=== PATIENT | female | born 1940 | race Caucasian/White ===

== ENCOUNTER → 2018-06-10 | Outpatient (CLI) | payer OTHER ==
[~2018-06-10] MED LIST: ASPI81TA28 PO; DORZ2SOL OPB; GABA-113 PO; HYDR25TA4 PO; LATA0.5S OP; LEVO25TA PO; LOSA1TAB38 PO; MULT-506 PO; NRV5 PO; PANT40TA PO; PRAV40TA2 PO; PROP150T2 PO; SLWMEC PO
--- NOTE | 2018-06-10 14:43 | DIAGNOSTIC IMAGING REPORT ---
CHEST 2 VIEWS ROUTINE CLINICAL HISTORY: PAT preoperative evaluation COMPARISON STUDY: No previous studies for comparison. FINDINGS: The bones soft tissues and hemidiaphragms are normal. The cardiomediastinal silhouette is normal. The lungs are clear. The pulmonary vasculature is normal. IMPRESSION: Negative chest. The above report was generated using voice recognition software. It may contain grammatical, syntax or spelling errors. Electronically signed by: Shiv Mathis M.D. 06/10/2018 2:42 PM Dictated Date/Time: 06/10/2018 2:41 PM
[2018-06-10 14:49] LABS: BASO % 0.3 %; BASO ABS # 0.02 K/uL (0-0.2); EOS % 0.8 %; EOS ABS # 0.05 K/uL (0-0.5); HEMATOCRIT 37.6 % (37-47); HEMOGLOBIN 12.4 g/dL (12.0-16.0); IG# 0.02 K/uL (0.00-0.02); LYMPH % 34.3 %; LYMPH ABS # 2.04 K/uL (1.2-3.4); MEAN CELL VOLUME 90.4 fL (80-100); MEAN CORPUSCULAR HEMOGLOBIN 29.8 pg (25-34); MEAN PLATELET VOLUME 9.5 fL (7.4-10.4); MONO % 14.6 %; MONO ABS # 0.87 K/uL (0.11-0.59); NEUT % 49.7 %; NEUT ABS # 2.94 K/uL (1.4-6.5); PLATELET COUNT 162 K/uL (130-400); RED CELL DISTRIBUTION WIDTH CV 13.9 % (11.5-14.5); RED CELL DISTRIBUTION WIDTH SD 45.8 fL (36.4-46.3); WHITE BLOOD COUNT 5.94 K/uL (4.8-10.8)
[2018-06-10 15:04] LABS: PTT PATIENT 27.1 SECONDS (21.0-31.0)
== END | disposition home or self-care (01) ==
LOC: C.CPL 13:15
PROVIDERS: ATTEND Orthopaedic Surgery Sports Medicine
DX: Z01.818 Encounter for other preprocedural examination (principal)

== ENCOUNTER 2024-03-25 09:25 | Observation (INO) ==
[2024-03-25] MEDS: SODIUM CHLORIDE 0.9% 500 ML IV SCH (10:25)
[2024-03-25] MEDS: ONDANSETRON INJ 2 MG/ML 2 ML VIAL IV STA (10:25)
[2024-03-25] MEDS: SODIUM CHLORIDE 0.9% 500 ML IV ONE (10:26)
--- NOTE | 2024-03-25 10:27 | Emergency Department Note ---
Impression & Plan Acute UTI, Weakness, Nausea, COVID-19 ED Provider Note Provider: Robert Moulton MD DATE OF SERVICE: 03/25/2024 CHIEF COMPLAINT: Weak, not eating, not taking HISTORY OF PRESENT ILLNESS: Patient is a 83-year-old female history of hypothyroidism and cardiac disease presenting here with decreased intake and some confusion for almost the last week. Seen in the outpatient setting started on Bactrim at the end of last week. This made her nauseous and she had some nausea and maybe a little bit of upper abdominal discomfort. Hard to pin her down on this. No fevers reported or trauma. Family states that she does not seem like her self has been hallucinating a little bit. No numbness or tingling newly reported. Denies significant abdominal pain or chest pain on my exam. Had a dose of the Bactrim yesterday but not since then has not been making her nauseous. PAST MEDICAL HISTORY: As noted above MEDICATIONS: Reviewed home medication SOCIAL HISTORY: PHYSICAL EXAM: GENERAL: alert and oriented in no acute distress on stretcher Head: normocephalic and atraumatic EYES: No injection, discharge or icterus. PERRL, EOMI. NECK: Trachea midline. Supple. ENT: Mucous membranes pink and moist. LUNGS: Airway patent. No retractions. Breath sounds clear with good air entry bilaterally. HEART: Regular rate and rhythm. No chest wall tenderness ABDOMEN: Soft and non-tender, without guarding or rebound. SKIN: Acyanotic, warm, dry, without rashes EXTREMITIES: Without swelling, tenderness or deformity NEUROLOGICAL: No focal deficits. No aphasia. No facial droop or slurred speech. Normal strength and tone in the extremities. Sensation to gross touch normal. Ambulatory with some assistance EK bpm sinus and first degree AV block. No PVC or PAC. No acute ST segment elevation or depression with a QTc of 445 CONTINUOUS CARDIAC MONITORING: was ordered and showed a heart rate of 70s bpm in sinus rhythm first-degree AV block Patient's laboratory studies and imaging reviewed. Differential includes Infection, dehydration, metabolic abnormality, hypo/hyperglycemia, electrolyte disturbance, anemia, hypoxia, cardiac sources, intracerebral event, toxicologic, neurologic, as well as other pathologies. IMPRESSION/MEDICAL DECISION MAKING: Is being treated for UTI. Urine sample here still appears infected and she now completed the course of the Bactrim given. This reportedly has been making her somewhat nauseous. CT of the head and CT abdomen pelvis obtained and radiology report reviewed without evidence of acute CVA intracranial hemorrhage or evidence of acute intra-abdominal pathology such as kidney stone or diverticulitis. Fairly benign abdomen on exam. Will treat with ceftriaxone IV and given some IV hydration as well as Zofran here for symptoms. Blood work without leukocytosis she is afebrile but likely altered and not doing well related to the UTI. Given that she is failed outpatient treat with Bactrim and having ongoing symptoms do recommend that we bring her in for further care. Is incidentally also COVID-positive may be contributing some of her weakness and GI issues but is feeling improved on reassessment as far as the nausea. Family updated as well as patient. Hospitalist contacted. DIAGNOSIS: Acute UTI, weakness, nausea, COVID-19 DISPOSITION: Hospitalist will evaluate Past Med/Surg History Problem List (Updated 03/25/24 @ 15:18 by [place] Muro) Dehydration symptoms Hyponatremia Confusion Acute kidney injury superimposed on chronic kidney disease Neuropathic pain Paroxysmal atrial fibrillation CAD (coronary artery disease) History of TIA (transient ischemic attack) Glaucoma GERD (gastroesophageal reflux disease) Generalized osteoarthritis Hypothyroidism Hyperlipidemia Hypertension Generalized weakness Complicated UTI (urinary tract infection) COVID-19 (Acute) Medical History Sensorineural hearing loss (SNHL) of both ears Obesity (BMI 30.0-34.9) Hiatal hernia History of tachycardia TACHYCARDIA S/P CARDIOVERSION 18 YEARS AGO [facility]. NO PROBLEMS SINCE. 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 NO PROBLEMS SINCE. History of bilateral tubal ligation History of carpal tunnel release RIGHT History of esophagogastroduodenoscopy (EGD) History of colonoscopy History of appendectomy Family History Unknown Family hx of colon cancer Father Hearing loss Mother Hypertension Stroke Heart disease Sister Colorectal cancer Brother Cancer unknown type Heart disease Other No family history of adverse response to anesthesia No family history of bleeding disorder Social History Smoking Status: Never smoker Second Hand Exposure: No; Do You Dip or Chew Tobacco: No; Hx Alcohol Use: No Hx Substance Use: No Preferred Language: Puerto Rican Communication Ability: Effective Visual Impairment: Partially Limited Beliefs That Will Affect Care: None marital status: Current Living Situation: Spouse current occupational status: retired Feels Safe at Home: Yes Assistive Devices: Walker Allergies Allergies Allergy/AdvReac Type Severity Reaction Status Date / Time brimonidine Allergy Severe RED AND Verified 01/18/21 15:49 IRRITATED EYES carboxymethylcellulose sodium Allergy Severe REDAND Verified 03/25/24 15:29 [From [employer]] IRRITATED EYES cephalexin Allergy Unknown INTERACTS Verified 01/18/21 15:49 WITH A MEDICATION PT TAKES Home Meds Home Medications Medication Instructions Recorded Confirmed amlodipine 5 mg tablet 5 mg PO QAM #0 tabs 05/27/18 03/25/24 dorzolamide 2 % eye drops (Trusopt) 1 drp OPB HS ##0 05/27/18 03/25/24 hydrochlorothiazide 25 mg tablet 12.5 mg PO QAM #0 tabs 05/27/18 03/25/24 latanoprost 0.005 % eye drops 1 drp ophthalmic (eye) HS ##0 05/27/18 03/25/24 (Xalatan) levothyroxine 25 mcg tablet 25 mcg PO QAM #0 tabs 05/27/18 03/25/24 magnesium chloride 64 mg 64 mg PO BID #0 tabs 05/27/18 03/25/24 (magnesium chloride) tablet,delayed release (Mag 64) multivitamin 1 tab PO QAM #0 tabs 05/27/18 03/25/24 pantoprazole 40 mg tablet,delayed 40 mg PO QAM PRN Other ##0 05/27/18 03/25/24 release (Protonix) pravastatin 40 mg tablet 40 mg PO HS ##0 05/27/18 03/25/24 propafenone 150 mg tablet 150 mg PO TID ##0 05/27/18 03/25/24 aspirin 81 mg tablet,delayed 81 mg PO PM 01/18/21 03/25/24 release cholecalciferol (vitamin D3) 75 2,000 unit PO QAM 01/18/21 03/25/24 mcg (3,000 unit) tablet gabapentin 100 mg capsule 300 mg PO TID 01/18/21 03/25/24 Results & Data (ED) Vital Signs Vital Signs - 24 hr 03/25/24 09:29 03/25/24 09:42 03/25/24 10:08 Temperature 36.8 C Temperature Source Temporal Artery Scan Pulse Rate 70 71 Respiratory Rate 18 16 Respiratory Effort / Characteristics Non-Labored Spontaneous Respiratory Depth Normal Blood Pressure 150/80 H 149/74 H Blood Pressure Mean 103 99 Blood Pressure Position Sitting Pulse Oximetry 97 96 Oxygen Delivery Method Room Air Room Air Sepsis Recent Fever Within 48 Hours No Sepsis New/Unexplained Change in Mental Status No Sepsis Action Taken by Nursing No Action Required 03/25/24 10:30 Temperature Temperature Source Pulse Rate 73 Respiratory Rate Respiratory Effort / Characteristics Respiratory Depth Blood Pressure Blood Pressure Mean Blood Pressure Position Pulse Oximetry Oxygen Delivery Method Sepsis Recent Fever Within 48 Hours Sepsis New/Unexplained Change in Mental Status Sepsis Action Taken by Nursing Laboratory Data 03/25/24 10:25 03/25/24 10:25 Lab Results 03/25/24 03/25/24 03/25/24 Range/Units 09:55 10:03 10:25 WBC 9.98 (4.8-10.8) K/ul RBC 4.34 (4.20-5.40) M/uL Hgb 12.9 (12.0-16.0) g/dl Hct 36.6 L (37.0-47.0) % MCV 84.3 (80.0-100.0) fL MCH 29.7 (25.0-34.0) pg MCHC 35.2 (32.0-36.0) g/dL RDW Std Deviation 41.6 (36.4-46.3) fL RDW Coeff of Dona 13.4 (11.5-14.5) % Plt Count 249 (130-400) K/uL MPV 9.0 L (9.4-12.4) fL Immature Gran % (Auto) 0.6 % Neut % (Auto) 69.5 % Lymph % (Auto) 21.5 % [place] % (Auto) 7.2 % Eos % (Auto) 0.5 % Baso % (Auto) 0.7 % Neut # (Auto) 6.93 H (1.40-6.50) K/uL Lymph # (Auto) 2.15 (1.20-3.40) K/uL [place] # (Auto) 0.72 H (0.11-0.59) K/uL Eos # (Auto) 0.05 (0.00-0.50) K/uL Baso # (Auto) 0.07 (0.00-0.20) K/uL Immature Gran # (Auto) 0.06 (0.01-0.20) K/uL PT 11.3 (9.0-12.0) Seconds INR 1.0 (0.9-1.1) Sodium 133 L (136-145) mmol/L Potassium 4.0 (3.5-5.1) mmol/L Chloride 101 (98-107) mmol/L Carbon Dioxide 19 L (21-32) mmol/L Anion Gap 13 H (3-11) BUN 24 H (6-23) mg/dl Creatinine 1.77 H (0.6-1.2) mg/dl Est Cr Clr Drug Dosing 24.5 ml/min Est GFR ( Amer) 30.5 ml/min Est GFR (Non-Af Amer) 26.3 ml/min BUN/Creatinine Ratio 13.6 (10-20) Glucose 90 (70-99(Fasting)) mg/dl Calcium 9.2 (8.6-10.3) mg/dl Magnesium 2.0 (1.7-2.4) mg/dl Total Bilirubin 0.5 (0.2-1.0) mg/dl AST 25 (13-39) U/L ALT 16 (7-52) U/L Alkaline Phosphatase 73 (34-104) U/L Total Creatine Kinase 59 (26-192) U/L Troponin I High Sens 8.4 (0-14) pg/ml Total Protein 7.1 (6.0-8.3) gm/dl Albumin 4.2 (3.4-5.0) gm/dl Globulin 2.9 (2.5-4.0) gm/dl Albumin/Globulin Ratio 1.4 (0.9-2) Lipase 17 (11-82) U/L Procalcitonin 0.03 (0-0.5) ng/ml TSH 1.114 (0.300-4.500) uIu/ml Urine Color Yellow Urine Appearance Cloudy A (Clear) Urine pH 6.0 (4.5-7.5) Ur Specific [place] 1.011 (1.000-1.030) Urine Protein 1+ H (Negative) Urine Glucose (UA) Negative (Negative) Urine Ketones Negative (Negative) Urine Blood Negative (Negative) Urine Nitrite Negative (Negative) Urine Bilirubin Negative (Negative) Urine Urobilinogen Negative (Negative) Ur Leukocyte Esterase 3+ H (Negative) Urine WBC (Auto) >50 H (0-5) /hpf Urine RBC (Auto) 0-2 (0-2) /hpf U Hyaline Cast (Auto) 3-5 H (0-2) /lpf U Epithel Cells (Auto) 0-2 (0-2) /hpf Urine Bacteria (Auto) 4+ H (None Seen) Adenovirus (PCR) Not Detected (NotDetected) B. pertussis DNA (PCR) Not Detected (NotDetected) B.parapertussis DNA PCR Not Detected (NotDetected) C. pneumoniae DNA (PCR) Not Detected (NotDetected) Coronavirus OC43 (PCR) Not Detected (NotDetected) Coronavirus HKU1 (PCR) Not Detected (NotDetected) Coronavirus 229E (PCR) Not Detected (NotDetected) SARS-CoV-2 (PCR) DETECTED A (NotDetected) Coronavirus NL63 (PCR) Not Detected (NotDetected) Human Metapneumovir PCR Not Detected (NotDetected) Influenza Type A (PCR) Not Detected (NotDetected) Influenza Type B (PCR) Not Detected (NotDetected) M. pneumoniae (PCR) Not Detected (NotDetected) Parainfluenza 1 (PCR) Not Detected (NotDetected) Parainfluenza 2 (PCR) Not Detected (NotDetected) Parainfluenza 3 (PCR) Not Detected (NotDetected) Parainfluenza 4 (PCR) Not Detected (NotDetected) RSV (PCR) Not Detected (NotDetected) Entero/Rhino (PCR) Not Detected (NotDetected) Administered Medications Discontinued Medications Sodium Chloride (Nss) 500 mls @ 999 mls/hr IV .Q31M KAROLINE Stop: 03/25/24 10:15 Last Infusion: 03/25/24 10:56 Dose: Infused Documented By: Admin: 03/25/24 10:25 Dose: 999 mls/hr Documented By: Sodium Chloride (Nss) 500 mls @ 999 mls/hr IV .Q31M ONE Stop: 03/25/24 10:27 Last Infusion: 03/25/24 10:57 Dose: Infused Documented By: Admin: 03/25/24 10:26 Dose: 999 mls/hr Documented By: Ceftriaxone Sodium (Rocephin) 2,000 mg in 50 mls @ 100 mls/hr IV NOW STA Stop: 03/25/24 11:24 Last Infusion: 03/25/24 11:44 Dose: Infused Documented By: Admin: 03/25/24 11:14 Dose: 100 mls/hr Documented By: Ondansetron HCl (Ondansetron Inj 2 Mg/Ml 2 Ml Vial) 4 mg IV NOW STA Stop: 03/25/24 09:58 Last Admin: 03/25/24 10:25 Dose: 4 mg Documented By: Imaging Data Radiologist's Impression: Chest X-Ray 03/25/24 09:42 XR chest 1V portable CLINICAL HISTORY: weakness COMPARISON STUDY: Chest radiograph June 10, 2018. FINDINGS: Lung volumes are normal. Lungs are clear. There is no pneumothorax or pleural effusion. Mild cardiomegaly is unchanged. Mediastinal contours are normal. There is no evidence for pulmonary edema. IMPRESSION: No acute cardiopulmonary findings. No change in appearance of the chest. ACT 112: Negative or not required by law. Electronically signed by: Fili Mckinley M.D. 03/25/2024 10:[address] 03/25/24 09:57 CT SCAN OF THE BRAIN WITHOUT IV CONTRAST CLINICAL HISTORY: Change in mental status. Nausea. Generalized weakness. COMPARISON STUDY: No priors. TECHNIQUE: Unenhanced axial CT scan of the brain is performed from the vertex to the skull base. A dose lowering technique was utilized adhering to the principles of ALARA. FINDINGS: Brain parenchyma: There is age-related involutional change noting advanced subcortical and periventricular microangiopathic disease. There is no hemorrhage, mass effect, or evidence of acute territorial ischemia by CT criteria. Andrade-white matter differentiation is preserved. No extra-axial fluid collection is seen. Ventricles, sulci, cisterns: Prominent secondary to involutional change. Intracranial vasculature: There is atherosclerotic calcification of the cavernous carotid and vertebral arteries. Calvarium: Unremarkable. Sinuses and mastoids: There is trace mucosal thickening within the partially imaged maxillary antra, as well as within the left frontal, anterior ethmoid, and the sphenoid sinuses. The mastoid air cells are well pneumatized. Orbits: The bony orbits are grossly intact. IMPRESSION: There is no hemorrhage, mass effect, or evidence of acute territorial ischemia by CT criteria. ACT 112: Negative or not required by law. Electronically signed by: Gustavo Navarrete M.D. 03/25/2024 10:29 AM Abdomen/Pelvis CT 03/25/24 09:58 CT OF THE ABDOMEN AND PELVIS WITHOUT CONTRAST CLINICAL HISTORY: Abdominal pain and nausea. COMPARISON STUDY: No previous studies for comparison. TECHNIQUE: Axial images of the abdomen and pelvis were obtained without IV contrast. Images were reviewed in the axial, sagittal, and coronal planes. Automated exposure control was utilized for the study. A dose lowering technique was utilized adhering to the principles of ALARA. FINDINGS: No pneumatosis, free air or portal venous gas is present. No renal, ureteral or bladder calculi are present. There is no hydronephrosis. Evaluation the remainder of the abdomen and pelvis is suboptimal on this unenhanced exam. There is a small hiatal hernia. Liver, spleen, adrenal glands and pancreas are unremarkable. There is no biliary or pancreatic ductal dilatation. There is no peripancreatic or pericholecystic infiltration. Gallbladder is slightly distended. Extensive colonic diverticulosis without evidence for acute diverticulitis. The appendix is not visualized. There is no evidence for a bowel obstruction. There is no lymphadenopathy. No fluid collections are present. No acute fractures are identified within the visualized skeletal structures. IMPRESSION: 1. No urinary calculi or hydronephrosis. 2. Extensive colonic diverticulosis. No evidence for acute diverticulitis. 3. No bowel obstruction. No bowel wall thickening on unenhanced exam. ACT 112: Negative or not required by law. Electronically signed by: Fili Mckinley M.D. 03/25/2024 10:37 AM Discharge Plan Visit Data Chief Complaint: Urinary Symptoms Stated Complaint: UTI, WEAKNESS, NO APETITE ED Provider: Robert Moulton Discharge Problem: Acute UTI, Weakness, Nausea, COVID-19 Patient Disposition: Admitted As Inpatient Discharge Instructions Interventions: ED Discharge Assessment Last Done: 03/25/24 15:26
--- NOTE | 2024-03-25 10:30 | CT Scan Report ---
CT SCAN OF THE BRAIN WITHOUT IV CONTRAST CLINICAL HISTORY: Change in mental status. Nausea. Generalized weakness. COMPARISON STUDY: No priors. TECHNIQUE: Unenhanced axial CT scan of the brain is performed from the vertex to the skull base. A do se lowering technique was utilized adhering to the principles of ALARA. FINDINGS: Brain parenchyma: There is age-related involutional change noting advanced subcortical and periventri cular microangiopathic disease. There is no hemorrhage, mass effect, or evidence of acute territorial ischemia by CT criteria. Andrade-white matter differentiation is preserved. No extra-axial fluid collec tion is seen. Ventricles, sulci, cisterns: Prominent secondary to involutional change. Intracranial vasculature: There is atherosclerotic calcification of the cavernous carotid and vertebr al arteries. Calvarium: Unremarkable. Sinuses and mastoids: There is trace mucosal thickening within the partially imaged maxillary antra, as well as within the left frontal, anterior ethmoid, and the sphenoid sinuses. The mastoid air cells are well pneumatized. Orbits: The bony orbits are grossly intact. IMPRESSION: There is no hemorrhage, mass effect, or evidence of acute territorial ischemia by CT kath zuluaga. ACT 112: Negative or not required by law. Electronically signed by: Gustavo Navarrete M.D. 03/25/2024 10:29 AM
[2024-03-25 10:34] LABS: Appearance Urine Cloudy (Clear); Bacteria Urine Automated 4+ (None Seen); Bilirubin Urine Negative (Negative); Blood Urine Negative (Negative); Color Urine Yellow; Epithelial Cell Urine Auto 0-2 /hpf (0-2); Glucose Urine UA Negative (Negative); Ketones Urine Negative (Negative); Leukocyte Esterase Urine 3+ (Negative); Nitrite Urine Negative (Negative); Protein Urine 1+ (Negative); RBC Urine Automated 0-2 /hpf (0-2); Specific Gravity Urine 1.011 (1.000-1.030); Urobilinogen Urine Negative (Negative); WBC Urine Automated >50 /hpf (0-5)
--- NOTE | 2024-03-25 10:38 | CT Scan Report ---
CT OF THE ABDOMEN AND PELVIS WITHOUT CONTRAST CLINICAL HISTORY: Abdominal pain and nausea. COMPARISON STUDY: No previous studies for comparison. TECHNIQUE: Axial images of the abdomen and pelvis were obtained without IV contrast. Images were revi ewed in the axial, sagittal, and coronal planes. Automated exposure control was utilized for the [place]. A dose lowering technique was utilized adhering to the principles of ALARA. FINDINGS: No pneumatosis, free air or portal venous gas is present. No renal, ureteral or bladder denise culi are present. There is no hydronephrosis. Evaluation the remainder of the abdomen and pelvis is s uboptimal on this unenhanced exam. There is a small hiatal hernia. Liver, spleen, adrenal glands and pancreas are unremarkable. There is no biliary or pancreatic ductal dilatation. There is no peripancr eatic or pericholecystic infiltration. Gallbladder is slightly distended. Extensive colonic diverticu losis without evidence for acute diverticulitis. The appendix is not visualized. There is no evidence for a bowel obstruction. There is no lymphadenopathy. No fluid collections are present. No acute fra ctures are identified within the visualized skeletal structures. IMPRESSION: 1. No urinary calculi or hydronephrosis. 2. Extensive colonic diverticulosis. No evidence for acute diverticulitis. 3. No bowel obstruction. No bowel wall thickening on unenhanced exam. ACT 112: Negative or not required by law. Electronically signed by: Fili Mckinley M.D. 03/25/2024 10:37 AM
--- NOTE | 2024-03-25 10:50 | XRay Report ---
XR chest 1V portable CLINICAL HISTORY: weakness COMPARISON STUDY: Chest radiograph June 10, 2018. FINDINGS: Lung volumes are normal. Lungs are clear. There is no pneumothorax or pleural effusion. Mil d cardiomegaly is unchanged. Mediastinal contours are normal. There is no evidence for pulmonary nidhi a. IMPRESSION: No acute cardiopulmonary findings. No change in appearance of the chest. ACT 112: Negative or not required by law. Electronically signed by: Fili Mckinley M.D. 03/25/2024 10:49 AM
[2024-03-25 10:55] LABS: Basophils # (auto) 0.07 K/uL (0.00-0.20); Basophils % (auto) 0.7 %; Eosinophils # (auto) 0.05 K/uL (0.00-0.50); Eosinophils % (auto) 0.5 %; Hematocrit (blood only) 36.6 % (37.0-47.0); Hemoglobin 12.9 g/dl (12.0-16.0); Immature Granulocytes # (auto) 0.06 K/uL (0.01-0.20); Immature Granulocytes % (auto) 0.6 %; Lymphocytes # (auto) 2.15 K/uL (1.20-3.40); Lymphocytes % (auto) 21.5 %; Mean Corpuscular Hemoglobin 29.7 pg (25.0-34.0); Mean Corpuscular Hgb Conc 35.2 g/dL (32.0-36.0); Mean Corpuscular Volume 84.3 fL (80.0-100.0); Monocytes # (auto) 0.72 K/uL (0.11-0.59); Monocytes % (auto) 7.2 %; Neutrophils # (auto) 6.93 K/uL (1.40-6.50); Neutrophils % (auto) 69.5 %; Platelet Count 249 K/uL (130-400); RDW Coefficient of Variation 13.4 % (11.5-14.5); RDW Standard Deviation 41.6 fL (36.4-46.3); Red Blood Count 4.34 M/uL (4.20-5.40); White Blood Count 9.98 K/ul (4.8-10.8)
[2024-03-25 11:10] LABS: Adenovirus PCR Not Detected (NotDetected); Bordetella parapertussis PCR Not Detected (NotDetected); Bordetella pertussis PCR Not Detected (NotDetected); Chlamydia pneumoniae PCR Not Detected (NotDetected); Coronavirus 229E PCR Not Detected (NotDetected); Coronavirus CoV-2 (COVID19)PCR DETECTED (NotDetected); Coronavirus HKU1 PCR Not Detected (NotDetected); Coronavirus NL63 PCR Not Detected (NotDetected); Coronavirus OC43PCR Not Detected (NotDetected); Human Metapneumovirus PCR Not Detected (NotDetected); Influenza A PCR Not Detected (NotDetected); Influenza B PCR Not Detected (NotDetected); Mycoplasma pneumoniae PCR Not Detected (NotDetected); Parainfluenza Virus 1 PCR Not Detected (NotDetected); Parainfluenza Virus 2 PCR Not Detected (NotDetected); Parainfluenza Virus 3 PCR Not Detected (NotDetected); Parainfluenza Virus 4 PCR Not Detected (NotDetected); Respiratory Syncytial VirusPCR Not Detected (NotDetected); Rhinovirus/Enterovirus PCR Not Detected (NotDetected)
[2024-03-25 11:14] LABS: Albumin Level 4.2 gm/dl (3.4-5.0); Bilirubin,Total 0.5 mg/dl (0.2-1.0); Calcium 9.2 mg/dl (8.6-10.3)
[2024-03-25] MEDS: cefTRIAXone SODIUM 2,000 MG/50 ML BAG IV STA (11:14)
[2024-03-25 11:20] LABS: Albumin Globulin Ratio 1.4 (0.9-2); BUN Creatinine Ratio 13.6 (10-20); Creatinine Clr Calc Pharmacy 24.5 ml/min; Est GFR (African American) 30.5 ml/min; Est GFR (Non-African American) 26.3 ml/min; Globulin 2.9 gm/dl (2.5-4.0); Total Protein 7.1 gm/dl (6.0-8.3)
[2024-03-25 11:21] LABS: Troponin I High Sensitivity 8.4 pg/ml (0-14)
[2024-03-25 11:22] LABS: Prothrombin Time 11.3 Seconds (9.0-12.0)
[2024-03-25 11:31] LABS: Thyroid Stimulating Hormone 1.114 uIu/ml (0.300-4.500)
--- NOTE | 2024-03-25 11:56 | History & Physical Report ---
Date of Service March 25, 2024 History of Present Illness Primary Care Provider: ZACH Mariee Allergies Allergy/AdvReac Type Severity Reaction Status Date / Time brimonidine Allergy Severe RED AND Verified 01/18/21 15:49 IRRITATED EYES cephalexin Allergy Unknown INTERACTS Verified 01/18/21 15:49 WITH A MEDICATION PT TAKES Carboxymethylcellulose Allergy Severe RED AND Uncoded 01/18/21 15:49 IRRITATED EYES Home Medications Medication Instructions Recorded Confirmed Type amlodipine 5 mg tablet 5 mg PO QAM #0 tabs 05/27/18 03/25/24 History dorzolamide 2 % eye drops (Trusopt) 1 drp OPB HS ##0 05/27/18 03/25/24 History hydrochlorothiazide 25 mg tablet 12.5 mg PO QAM #0 tabs 05/27/18 03/25/24 History latanoprost 0.005 % eye drops 1 drp ophthalmic (eye) HS ##0 05/27/18 03/25/24 History (Xalatan) levothyroxine 25 mcg tablet 25 mcg PO QAM #0 tabs 05/27/18 03/25/24 History magnesium chloride 64 mg 64 mg PO BID #0 tabs 05/27/18 03/25/24 History (magnesium chloride) tablet,delayed release (Mag 64) multivitamin 1 tab PO QAM #0 tabs 05/27/18 03/25/24 History pantoprazole 40 mg tablet,delayed 40 mg PO QAM PRN Other ##0 05/27/18 03/25/24 History release (Protonix) pravastatin 40 mg tablet 40 mg PO HS ##0 05/27/18 03/25/24 History propafenone 150 mg tablet 150 mg PO TID ##0 05/27/18 03/25/24 History aspirin 81 mg tablet,delayed 81 mg PO PM 01/18/21 03/25/24 History release cholecalciferol (vitamin D3) 75 2,000 unit PO QAM 01/18/21 03/25/24 History mcg (3,000 unit) tablet gabapentin 100 mg capsule 300 mg PO TID 01/18/21 03/25/24 History sulfamethoxazole 800 1 tab PO BID 03/25/24 03/25/24 History mg-trimethoprim 160 mg tablet Past Med/Surg History Problem List (Updated 03/25/24 @ 11:34 by Robert Moulton M.D.) COVID-19 (Acute) Nausea (Acute) Weakness (Acute) Acute UTI (Acute) History of total left knee replacement Impacted cerumen of both ears Sensorineural hearing loss (SNHL) of both ears Total knee replacement status Encounter for pre-operative examination Medical History Chronic back pain Degenerative disc disease GERD (gastroesophageal reflux disease) Glaucoma Hearing deficit Hiatal hernia History of pneumonia History of tachycardia Hyperlipidemia Hypertension Hypothyroidism Obesity (BMI 30.0-34.9) Osteoarthritis Peripheral neuropathy Surgical History History of appendectomy History of bilateral tubal ligation History of cardiac cath History of cardioversion History of carpal tunnel release History of colonoscopy History of esophagogastroduodenoscopy (EGD) History of knee joint replacement Family History Unknown Family hx of colon cancer Father Hearing loss Mother Hypertension Stroke Heart disease Sister Colorectal cancer Brother Cancer Heart disease Other No family history of adverse response to anesthesia No family history of bleeding disorder Social History Smoking Status: Never smoker Second Hand Exposure: No; Do You Dip or Chew Tobacco: No; Hx Alcohol Use: No Hx Substance Use: No Preferred Language: Bahamian Communication Ability: Effective Visual Impairment: Partially Limited Beliefs That Will Affect Care: None marital status: Current Living Situation: Spouse current occupational status: retired Feels Safe at Home: Yes Assistive Devices: Walker Results & Data Results & Data Vital Signs (Past 12 Hours) Vital Signs Temp Pulse Resp BP Pulse Ox O2 Del Method 03/25/24 10:30 73 03/25/24 09:42 96 Room Air 03/25/24 09:29 36.8 C 70 18 150/80 H 97 Room Air
--- NOTE | 2024-03-25 12:10 | History & Physical Report ---
Date of Service March 25, 2024 Assessment & Plan (1) Complicated UTI (urinary tract infection): (2) Generalized weakness: (3) Acute metabolic encephalopathy: Plan: Ema Forte is an 83y/o F with PMHx of acquired hypothyroidism, dyslipidemia, paroxysmal atrial fibrillation [not currently on oral anticoagulation therapy], HTN, CAD, CKD stage III, urinary incontinence, sensorineural hearing loss of both ears, TIA, GERD w/o esophagitis, benign essential tremor of left hand, generalized osteoarthritis, recurrent UTI, neuropathic pain and other problems listed below who presented to the ED for evaluation of ongoing urinary symptoms associated w/ generalized weakness/fatigue, confusion and decreased appetite. Patient was evaluated on 03/20/2024 by her PCP for acute concerns of fatigue, confusion, decreased appetite x 1 week and was diagnosed with a UTI. She was prescribed a 7-day course of Bactrim at that time. However, she was only able to take ~3 days worth of the Bactrim therapy d/t subsequent nausea/dry heaving. Her last dose was yesterday morning. Patient was seen again by her PCP this morning, who referred her here to the ED for further management following failure of outpatient Bactrim therapy. She did receive 4 mg IV Zofran and 1 L of NSS in the ED. UA reveals evidence of ongoing UTI [elevated leukocyte esterase/WBC count]. Head CT displays no evidence of hemorrhage, mass effect or acute ischemia. CT abdomen/pelvis revealed no urinary calculi or hydronephrosis. Extensive colonic diverticulosis is seen on CT imaging, but there is no evidence of acute diverticulitis, bowel obstruction or bowel wall thickening. -Continue ABX therapy w/ IV Rocephin 2g Q24H. Urine culture pending. -Will receive an additional 1L NSS upon transfer. -Continuous cardiac monitoring, fall precautions in place. -Can continue STOVE FITTER magnesium supplementation, mag level 2.0 on admission. -Bowel regimen in place, PRN IV Zofran ordered for any recurrent episodes of nausea. -Repeat BMP and CBC in AM, monitor for any signs of delirium throughout hospitalization. (4) Acute kidney injury superimposed on chronic kidney disease: Plan: Per [facility] records, baseline creatinine appears to be ~1.3-1.4. Creatine 1.77, BUN 24 and GFR 26.3 upon admission. -Order placed for an additional 1L NSS to be administered upon transfer. -Hold STOVE FITTER hydrochlorothiazide d/t current renal function. -Continue to monitor renal function and hold any additional nephrotoxic medications, repeat BMP in AM. (5) Dehydration symptoms: (6) Hyponatremia: Plan: Patient received 1L NSS in the ED. -Plan to administer an additional 1L NSS upon transfer. -Monitor sodium level, repeat BMP ordered for the AM. (7) COVID-19: Plan: RVP positive for COVID-19. Currently asymptomatic, denies any respiratory symptoms at bedside. Chest x-ray revealed no acute cardiopulmonary findings. SpO2 99% on RA, currently not requiring supplemental oxygen therapy. -No indication to start remdesivir at the moment given absence of respiratory symptoms. -Continue to routinely monitor the patient for any signs of acute respiratory concerns. (8) Paroxysmal atrial fibrillation: Plan: Not currently in atrial fibrillation, also not currently on oral anticoagulation therapy. -Continue propafenone; continuous cardiac monitoring in place. (9) Hypertension: Plan: -Continue amlodipine, hold STOVE FITTER hydrochlorothiazide given current RHEA. (10) Hyperlipidemia: Plan: -Continue pravastatin (11) Hypothyroidism: Plan: -Continue levothyroxine (12) GERD (gastroesophageal reflux disease): Plan: -Continue PRN PPI therapy (13) Glaucoma: Plan: -Continue latanoprost, dorzolamide (14) History of TIA (transient ischemic attack): (15) CAD (coronary artery disease): Plan: -Continue aspirin, pravastatin (16) Generalized osteoarthritis: (17) Neuropathic pain: Plan: -Can continue STOVE FITTER gabapentin for chronic neuropathic pain. -PRN Tylenol order in place, can use for bouts of osteoarthritic pain (which patient reports is mostly localized to her knees). DVT Prophylaxis: SQ Heparin Code Status: Full Code PCP: ZACH Mariee Dispo: Admit to Med/Surg w/ Telemetry Patient seen in collaboration with Dr. Lopez. Please see addendum. I spent a total of 75 minutes coordinating, documenting, and providing care for this patient excluding time spent in the performance of separately billed services. This included personally reviewing all current laboratories and imaging studies, medical reconciliation, outpatient chart review and discussion with specialists. This chart was completed in part utilizing Speech Voice Recognition Software. Grammatical errors, random word insertions, pronoun errors, and incomplete sentences are an occasional consequence of this system due to software limitations, ambient noise, and hardware issues. Any formal questions or concerns about the content, text, or information contained within the body of this dictation should be directly addressed to the provider for clarification. History of Present Illness Chief Complaint: Urinary Symptoms/UTI, Weakness & Confusion Primary Care Provider: ZACH Mariee Ema Forte is an 83y/o F with PMHx of acquired hypothyroidism, dyslipidemia, paroxysmal atrial fibrillation [not currently on oral anticoagulation therapy], HTN, CAD, CKD stage III, urinary incontinence, sensorineural hearing loss of both ears, TIA, GERD w/o esophagitis, benign essential tremor of left hand, generalized osteoarthritis, recurrent UTI, neuropathic pain and other problems listed below who presented to the ED for evaluation of ongoing urinary symptoms associated w/ generalized weakness/fatigue, confusion and decreased appetite. History obtained from patient, and associated ED/PCP records. Patient was evaluated on 03/20/2024 by her PCP for acute concerns of fatigue, confusion, decreased appetite x 1 week and was diagnosed with a UTI. She was prescribed a 7-day course of Bactrim at that time. However, she was only able to take ~3 days worth of the Bactrim therapy d/t subsequent nausea/dry heaving. Her last dose was yesterday morning. Patient was seen again by her PCP this morning, who referred her here to the ED for further management following failure of outpatient Bactrim therapy. Patient seen at bedside. Patient is accompanied in the room by her daughter, Kylie, and her , Leno, whom provide additional history. Patient is still having the same ongoing symptoms as above (i.e., fatigue, confusion and decreased appetite). Patient's reports that she has not eaten a full meal in approximately 1 week, and has not had a bowel movement in approximately a week and a half. Although, patient states that she typically has 1 bowel movement per week at baseline. Patient's daughter reports that she has not been hydrating well at home, and that she appears visibly dehydrated. Patient's states that she "has not been acting like herself" recently, and may even be hallucinating a little bit. Patient denies any episodes of vomiting, or current nausea. She did receive 4 mg IV Zofran and 1 L of NSS in the ED. Patient denies any recent fevers, chills or body aches. Patient's daughter reports that she does not have the "typical UTI symptoms," such as dysuria, increased urinary frequency or fever. Patient denies any abdominal discomfort or pain. She further denies any SOB, chest pain, headaches, lightheadedness/dizziness, recent falls or trauma. Patient attended her sister's approximately 2 weeks ago, and multiple attendees have recently reported testing positive for COVID-19. Patient's states that she did have a runny nose and some sinus congestion over the weekend, which have since resolved. Patient currently lives with her in a trailer, and their daughter lives in a trailer right next to them. Patient ambulates with a cane at home, and denies any recent issues with ambulation. Allergies Allergy/AdvReac Type Severity Reaction Status Date / Time brimonidine Allergy Severe RED AND Verified 01/18/21 15:49 IRRITATED EYES carboxymethylcellulose sodium Allergy Severe REDAND Verified 03/25/24 15:29 [From Refresh Plus] IRRITATED EYES cephalexin Allergy Unknown INTERACTS Verified 01/18/21 15:49 WITH A MEDICATION PT TAKES Home Medications Medication Instructions Recorded Confirmed Type amlodipine 5 mg tablet 5 mg PO QAM #0 tabs 05/27/18 03/25/24 History dorzolamide 2 % eye drops (Trusopt) 1 drp OPB HS ##0 05/27/18 03/25/24 History hydrochlorothiazide 25 mg tablet 12.5 mg PO QAM #0 tabs 05/27/18 03/25/24 History latanoprost 0.005 % eye drops 1 drp ophthalmic (eye) HS ##0 05/27/18 03/25/24 History (Xalatan) levothyroxine 25 mcg tablet 25 mcg PO QAM #0 tabs 05/27/18 03/25/24 History magnesium chloride 64 mg 64 mg PO BID #0 tabs 05/27/18 03/25/24 History (magnesium chloride) tablet,delayed release (Mag 64) multivitamin 1 tab PO QAM #0 tabs 05/27/18 03/25/24 History pantoprazole 40 mg tablet,delayed 40 mg PO QAM PRN Other ##0 05/27/18 03/25/24 History release (Protonix) pravastatin 40 mg tablet 40 mg PO HS ##0 05/27/18 03/25/24 History propafenone 150 mg tablet 150 mg PO TID ##0 05/27/18 03/25/24 History aspirin 81 mg tablet,delayed 81 mg PO PM 01/18/21 03/25/24 History release cholecalciferol (vitamin D3) 75 2,000 unit PO QAM 01/18/21 03/25/24 History mcg (3,000 unit) tablet gabapentin 100 mg capsule 300 mg PO TID 01/18/21 03/25/24 History Past Med/Surg History Problem List (Updated 03/25/24 @ 19:10 by Arely Jo PA-C) Acute metabolic encephalopathy Dehydration symptoms Hyponatremia Acute kidney injury superimposed on chronic kidney disease Neuropathic pain Paroxysmal atrial fibrillation CAD (coronary artery disease) History of TIA (transient ischemic attack) Glaucoma GERD (gastroesophageal reflux disease) Generalized osteoarthritis Hypothyroidism Hyperlipidemia Hypertension Generalized weakness Complicated UTI (urinary tract infection) COVID-19 (Acute) Medical History (Updated 03/25/24 @ 19:10 by Arely oJ PA-C) Sensorineural hearing loss (SNHL) of both ears Obesity (BMI 30.0-34.9) Hiatal hernia History of tachycardia TACHYCARDIA S/P CARDIOVERSION 18 YEARS AGO [facility]. NO PROBLEMS SINCE. History of pneumonia Degenerative disc disease Chronic back pain Hearing deficit Peripheral neuropathy L hand Surgical History History of total left knee replacement Total knee replacement status History of knee joint replacement left History of cardiac cath Diagnostic p/t cardioversion, 1999 History of cardioversion 18 YEARS AGO [facility]. NO PROBLEMS SINCE. History of bilateral tubal ligation History of carpal tunnel release RIGHT History of esophagogastroduodenoscopy (EGD) History of colonoscopy History of appendectomy Family History Unknown Family hx of colon cancer Father Hearing loss Mother Hypertension Stroke Heart disease Sister Colorectal cancer Brother Cancer unknown type Heart disease Other No family history of adverse response to anesthesia No family history of bleeding disorder Social History Smoking Status: Never smoker Second Hand Exposure: No; Do You Dip or Chew Tobacco: No; Hx Alcohol Use: No Hx Substance Use: No Preferred Language: Bahamian Communication Ability: Effective Visual Impairment: Partially Limited Beliefs That Will Affect Care: None marital status: Current Living Situation: Spouse current occupational status: retired Feels Safe at Home: Yes Assistive Devices: Walker Review of Systems Review of Systems: At least ten systems reviewed and negative, except as noted in the HPI. Physical Exam Physical Exam: General Appearance: Vitals as above, resting in bed in no acute distress. Head: Normocephalic, atraumatic. Eyes: Normal inspection, PERRL, conjunctivae normal, anicteric sclerae. ENT: External ear and nose normal, oropharynx normal. Neck: Normal visual inspection, trachea midline, no thyromegaly. Respiratory: Normal respiratory effort, lungs clear to auscultation, no wheeze, rales, rhonchi. No accessory muscle use. Cardiovascular: Regular rate, rhythm, no murmur, normal peripheral pulses, no BLE edema. Vessels: No JVD. Chest: Normal inspection of chest. Abdomen/GI: Normal bowel sounds, soft, nontender, no hepatosplenomegaly. Extremities/Musculoskeletal: No cyanosis or clubbing, extremities motor strength 5/5. Chronic essential tremor of her left hand noted. Neurologic: PERRL, EOMI, accommodation nl, no face palsy, no dysarthria, CN's II-XI grossly intact bilaterally and moves all extremities. Psychiatric: A+Ox3, euthymic affect. Skin: No rashes, normal color, warm/dry. Healing wound present on the lateral aspect of left lower leg. No tenderness or surrounding erythema present. Results & Data Results & Data Vital Signs (Past 12 Hours) Vital Signs Temp Pulse Resp BP Pulse Ox O2 Del Method 03/25/24 10:30 73 03/25/24 09:42 96 Room Air 03/25/24 09:29 36.8 C 70 18 150/80 H 97 Room Air Laboratory Results Short CBC 03/25/24 Range/Units 10:25 WBC 9.98 (4.8-10.8) K/ul Hgb 12.9 (12.0-16.0) g/dl Hct 36.6 L (37.0-47.0) % Plt Count 249 (130-400) K/uL BMP 03/25/24 10:25 Sodium 133 L Potassium 4.0 Chloride 101 Carbon Dioxide 19 L BUN 24 H Creatinine 1.77 H Glucose 90 Calcium 9.2 Cardiac Enzymes 03/25/24 Range/Units 10:25 Total Creatine Kinase 59 (26-192) U/L Liver Function 03/25/24 Range/Units 10:25 Total Bilirubin 0.5 (0.2-1.0) mg/dl AST 25 (13-39) U/L ALT 16 (7-52) U/L Alkaline Phosphatase 73 (34-104) U/L Albumin 4.2 (3.4-5.0) gm/dl Urine 03/25/24 Range/Units 09:55 Urine Color Yellow Urine Appearance Cloudy A (Clear) Urine pH 6.0 (4.5-7.5) Ur Specific [place] 1.011 (1.000-1.030) Urine Protein 1+ H (Negative) Urine Glucose (UA) Negative (Negative) Diagnostic Findings Chest X-Ray 03/25/24 09:42 XR chest 1V portable CLINICAL HISTORY: weakness COMPARISON STUDY: Chest radiograph June 10, 2018. FINDINGS: Lung volumes are normal. Lungs are clear. There is no pneumothorax or pleural effusion. Mild cardiomegaly is unchanged. Mediastinal contours are normal. There is no evidence for pulmonary edema. IMPRESSION: No acute cardiopulmonary findings. No change in appearance of the chest. ACT 112: Negative or not required by law. Electronically signed by: Fili Mckinley M.D. 03/25/2024 10:[address] 03/25/24 09:57 CT SCAN OF THE BRAIN WITHOUT IV CONTRAST CLINICAL HISTORY: Change in mental status. Nausea. Generalized weakness. COMPARISON STUDY: No priors. TECHNIQUE: Unenhanced axial CT scan of the brain is performed from the vertex to the skull base. A dose lowering technique was utilized adhering to the principles of ALARA. FINDINGS: Brain parenchyma: There is age-related involutional change noting advanced subcortical and periventricular microangiopathic disease. There is no hemorrhage, mass effect, or evidence of acute territorial ischemia by CT criteria. Andrade-white matter differentiation is preserved. No extra-axial fluid collection is seen. Ventricles, sulci, cisterns: Prominent secondary to involutional change. Intracranial vasculature: There is atherosclerotic calcification of the [place] carotid and vertebral arteries. Calvarium: Unremarkable. Sinuses and mastoids: There is trace mucosal thickening within the partially imaged maxillary antra, as well as within the left frontal, anterior ethmoid, and the sphenoid sinuses. The mastoid air cells are well pneumatized. Orbits: The bony orbits are grossly intact. IMPRESSION: There is no hemorrhage, mass effect, or evidence of acute territorial ischemia by CT criteria. ACT 112: Negative or not required by law. Electronically signed by: Gustavo Navarrete M.D. 03/25/2024 10:29 AM Abdomen/Pelvis CT 03/25/24 09:58 CT OF THE ABDOMEN AND PELVIS WITHOUT CONTRAST CLINICAL HISTORY: Abdominal pain and nausea. COMPARISON STUDY: No previous studies for comparison. TECHNIQUE: Axial images of the abdomen and pelvis were obtained without IV contrast. Images were reviewed in the axial, sagittal, and coronal planes. Automated exposure control was utilized for the study. A dose lowering technique was utilized adhering to the principles of ALARA. FINDINGS: No pneumatosis, free air or portal venous gas is present. No renal, ureteral or bladder calculi are present. There is no hydronephrosis. Evaluation the remainder of the abdomen and pelvis is suboptimal on this unenhanced exam. There is a small hiatal hernia. Liver, spleen, adrenal glands and pancreas are unremarkable. There is no biliary or pancreatic ductal dilatation. There is no peripancreatic or pericholecystic infiltration. Gallbladder is slightly distended. Extensive colonic diverticulosis without evidence for acute diverticulitis. The appendix is not visualized. There is no evidence for a bowel obstruction. There is no lymphadenopathy. No fluid collections are present. No acute fractures are identified within the visualized skeletal structures. IMPRESSION: 1. No urinary calculi or hydronephrosis. 2. Extensive colonic diverticulosis. No evidence for acute diverticulitis. 3. No bowel obstruction. No bowel wall thickening on unenhanced exam. ACT 112: Negative or not required by law. Electronically signed by: Fili Mckinley M.D. 03/25/2024 10:37 AM Medications Administered Discontinued Medications Sodium Chloride (Nss) 500 mls @ 999 mls/hr IV .Q31M KAROLINE Stop: 03/25/24 10:15 Last Infusion: 03/25/24 10:56 Dose: Infused Documented By: JOSE LUIS Admin: 03/25/24 10:25 Dose: 999 mls/hr Documented By: JOSE LUIS Sodium Chloride (Nss) 500 mls @ 999 mls/hr IV .Q31M ONE Stop: 03/25/24 10:27 Last Infusion: 03/25/24 10:57 Dose: Infused Documented By: Admin: 03/25/24 10:26 Dose: 999 mls/hr Documented By: Ceftriaxone Sodium (Rocephin) 2,000 mg in 50 mls @ 100 mls/hr IV NOW STA Stop: 03/25/24 11:24 Last Infusion: 03/25/24 11:44 Dose: Infused Documented By: Admin: 03/25/24 11:14 Dose: 100 mls/hr Documented By: Ondansetron HCl (Ondansetron Inj 2 Mg/Ml 2 Ml Vial) 4 mg IV NOW STA Stop: 03/25/24 09:58 Last Admin: 03/25/24 10:25 Dose: 4 mg Documented By: ECG Additional Comments: EKG performed in the ED interpreted by Dr. Camacho Black and reveals the following: sinus rhythm w/ 1st degree AV block, HR 69bpm, KS Int 224ms, QT/QTc 416/445ms and QRS Dur 106ms. Code Status & VTE Plan Code Status FULL CODE Supervising Physician Co-Signing Physician Notes Pt was seen and examined by myself, Sera Lopez MD on the day of service. Care was coordinated with Arely Jo PA-C. 83yoF admitted with increasing confusion at home per family. Was started on outpt Bactrim rx for a UTI. Pt pleasantly confused on exam even saying her name was "Kylie Forte" which is the name of her daughter present. Acute metabolic encephalopathy- likely in setting of noted infections, UTI and covid Continue IV Rocephin for the UTI, symptomatic treatment as needed for covid infection RHEA- NSS, gentle hydration Otherwise as above. I spent a total [id number] coordinating, documenting, and providing care for this patient excluding time spent in the performance of separately billed services (9) Hypertension Hypertension type: unspecified Qualified Code(s): I10 - Essential (primary) hypertension (10) Hyperlipidemia Hyperlipidemia type: unspecified Qualified Code(s): E78.5 - Hyperlipidemia, unspecified (11) Hypothyroidism Hypothyroidism type: acquired Qualified Code(s): E03.9 - Hypothyroidism, unspecified (12) GERD (gastroesophageal reflux disease) Esophagitis presence: without esophagitis Qualified Code(s): K21.9 - Gastro- esophageal reflux disease without esophagitis (13) Glaucoma Glaucoma type: unspecified Laterality: bilateral Qualified Code(s): H40.9 - Unspecified glaucoma (15) CAD (coronary artery disease) Associated angina: without angina Coronary Disease-Associated Artery/Lesion type: [place] artery [place] vs. transplanted heart: [place] heart Qualified Code(s): I25.10 - Atherosclerotic heart disease of [place] coronary artery without angina pectoris
--- NOTE | 2024-03-25 13:01 | Electrocardiogram Report ---
Test Reason : Blood Pressure : / mmHG Vent. Rate : 069 BPM Atrial Rate : 069 BPM P-R Int : 224 ms QRS Dur : 106 ms QT Int : 416 ms P-R-T Axes : 047 000 033 degrees QTc Int : 445 ms Sinus rhythm with 1st degree A-V block Possible Old Anterior infarct Nonspecific T wave abnormality Anterior leads Abnormal ECG When compared with ECG of 09-JUL-2018 10:23, Borderline criteria for Anterior infarct are now Present Nonspecific T wave abnormality Anterior leads now present Confirmed by Camacho Black ([id number]) on 03/25/2024 1:01:00 PM Referred By: REFERRED SELF Confirmed By:Camacho Black
[2024-03-25] MEDS ORDERED: ONDANSETRON INJ 2 MG/ML 2 ML VIAL IV PRN (15:25)
[2024-03-25] MEDS ORDERED: ALUMINUM/MAGNESIUM SUSP 30 ML UDC PO PRN (15:25)
[2024-03-25] MEDS ORDERED: MAGNESIUM HYDROXIDE SUSP 30 ML UDC PO PRN (15:25)
[2024-03-25] MEDS ORDERED: ACETAMINOPHEN 325 MG TAB PO PRN (15:25)
[2024-03-25] MEDS ORDERED: PANTOprazole 40 MG TAB PO PRN (15:25)
[2024-03-25] MEDS: GABAPENTIN 300 MG CAP PO SCH (16:32)
[2024-03-25] MEDS: SODIUM CHLORIDE 0.9% 1,000 ML IV SCH (16:32)
[2024-03-25] MEDS: PROPAFENONE HCL 150 MG TABLET PO SCH (16:32)
[2024-03-25] MEDS: LATANOPROST 0.005% OP SOLN 2.5 ML BTL OP SCH (20:15)
[2024-03-25] MEDS: ASPIRIN 81 MG ECTAB PO SCH (20:15)
[2024-03-25] MEDS: PRAVASTATIN SOD 40 MG TAB PO SCH (20:15)
[2024-03-25] MEDS: HEPARIN SOD 5,000 UNIT/0.5 ML VIAL SQ SCH (20:17)
[2024-03-25] MEDS: DORZOLAMIDE HCL 2% OPH SOLN 10 ML BTL OPB SCH (21:18)
[2024-03-25] MEDS: MAGNESIUM CHLORIDE W/CALCIUM 64MG DELAYED REL TAB PO SCH (21:18)
[2024-03-26] MEDS: POLYETHYLENE (MIRALAX) 17 GM PACK PO PRN (06:01)
[2024-03-26] MEDS: LEVOTHYROXINE SODIUM 25 MCG TABLET PO SCH (06:01)
[2024-03-26 08:14] LABS: Hematocrit (blood only) 34.1 % (37.0-47.0); Hemoglobin 11.9 g/dl (12.0-16.0); Mean Corpuscular Hemoglobin 29.5 pg (25.0-34.0); Mean Corpuscular Hgb Conc 34.9 g/dL (32.0-36.0); Mean Corpuscular Volume 84.4 fL (80.0-100.0); Mean Platelet Volume 9.1 fL (9.4-12.4); Platelet Count 249 K/uL (130-400); RDW Coefficient of Variation 13.7 % (11.5-14.5); RDW Standard Deviation 42.5 fL (36.4-46.3); Red Blood Count 4.04 M/uL (4.20-5.40); White Blood Count 7.03 K/ul (4.8-10.8)
[2024-03-26 08:24] LABS: BUN Creatinine Ratio 14.1 (10-20); Calcium 8.7 mg/dl (8.6-10.3); Creatinine Clr Calc Pharmacy 32.2 ml/min; Est GFR (African American) 42.3 ml/min; Est GFR (Non-African American) 36.5 ml/min
[2024-03-26] MEDS: amLODIPine BESYLATE 5 MG TAB PO SCH (09:54)
[2024-03-26] MEDS: cefTRIAXone SODIUM 2,000 MG/50 ML BAG IV SCH (09:54)
[2024-03-26] MEDS ORDERED: Nursing to Pharmacy Communication SCH (11:45)
[2024-03-26] MEDS: DORZOLAMIDE HCL 2% OPH SOLN 10 ML BTL OPB SCH (12:02)
--- NOTE | 2024-03-26 16:01 | Hospitalist Progress Note ---
Date of Service March 26, 2024 Assessment & Plan (1) Acute UTI: (2) COVID-19: (3) Generalized weakness: (4) Paroxysmal atrial fibrillation: (5) Acute kidney injury superimposed on chronic kidney disease: Plan Ema Forte is an 83y/o F with PMHx of acquired hypothyroidism, dyslipidemia, paroxysmal atrial fibrillation [not currently on oral anticoagulation therapy], HTN, CAD, CKD stage III, urinary incontinence, TIA, GERD w/o esophagitis, benign essential tremor of left hand, generalized osteoarthritis, recurrent UTI, neuropathic pain and other problems listed below who presented to the ED for evaluation of ongoing urinary symptoms associated w/ generalized weakness/fat igue, confusion and decreased appetite. Patient was evaluated on 03/20/2024 by her PCP for acute concerns of fatigue, confusion, decreased appetite x 1 week and was diagnosed with a UTI. She was prescribed a 7-day course of Bactrim at that time. However, she was only able to take ~3 days worth of the Bactrim therapy d/t subsequent nausea/dry heaving. Patient was seen again by her PCP who referred her here to the ED for further management following failure of outpatient Bactrim therapy. Acute UTI with GNB- failed outpatient Bactrim treatment- CT A/P with no acute abnormality. urine culture showing gram-negative isolate. Continue IV ceftriaxone pending final urine culture results RHEA on CKD- Resolved. Creatinine back to baseline of 1.3-1.4 from peak of 1.77, this is likely related to Bactrim. Bactrim has been discontinued. hydrochlorothiazide on hold. Recheck creatinine in AM. Hyponatremia- resolved. Hydrochlorothiazide on hold. COVID-19- incidental finding, no symptoms, does not require treatment. Paroxysmal Atrial fibrillation- continue propafenone, not on anticoagulant treatment as outpatient. follow-up with PCP as outpatient. Hypertension- continue amlodipine. Continue to hold home hydrochlorothiazide hypothyroidism- continue levothyroxine generalized weakness due to UTI- PT OT eval DVT prophylaxis- subcu heparin disposition- pending final urine culture results and PT OT evaluation time spent- approximately 35 minutes Admission and Anticipated Discharge Date Admission Date: March 25, 2024 Subjective Patient was seen and examined at bedside. she feels much better after coming to the ED And starting IV antibiotics. She denies any Respiratory symptoms and is incidentally COVID-19 positive. urine culture is still showing gram- negative bacilli. No fever, chills, chest pain, shortness of breath, nausea or vomiting Review of Systems Review of Systems: All systems reviewed & are unremarkable except as noted in Subjective Physical Exam Physical Exam: General: Lying comfortably in bed, not in distress, on room air HEENT: EOMI, GEOFF, MMM Chest: Clear breath sounds bilaterally, no wheezes or crackles CVS: Regular rate and rhythm, normal heart sounds, no murmur Abdomen: Soft, non tender, not distended, normal bowel sounds Neuro: Awake, alert, oriented, conversing well, non focal Extremities: No edema Results & Data Results & Data Vital Signs (Past 12 Hours) Vital Signs Temp Pulse Pulse Resp BP Pulse Ox O2 Del Method 03/26/24 11:46 36.7 C 64 17 119/74 98 Room Air 03/26/24 07:53 37 C 66 17 158/77 H 98 Room Air 03/26/24 07:31 65 Laboratory Results Short CBC 03/26/24 Range/Units 07:30 WBC 7.03 (4.8-10.8) K/ul Hgb 11.9 L (12.0-16.0) g/dl Hct 34.1 L (37.0-47.0) % Plt Count 249 (130-400) K/uL BMP 03/26/24 07:30 Sodium 135 L Potassium 4.0 Chloride 105 Carbon Dioxide 22 BUN 19 Creatinine 1.35 H D Glucose 99 Calcium 8.7
--- NOTE | 2024-03-27 13:23 | Discharge Summary ---
Date of Service March 27, 2024 Admission HPI Per Admitting Provider Ema Forte is an 83y/o F with PMHx of acquired hypothyroidism, dyslipidemia, paroxysmal atrial fibrillation [not currently on oral anticoagulation therapy], HTN, CAD, CKD stage III, urinary incontinence, sensorineural hearing loss of both ears, TIA, GERD w/o esophagitis, benign essential tremor of left hand, generalized osteoarthritis, recurrent UTI, neuropathic pain and other problems listed below who presented to the ED for evaluation of ongoing urinary symptoms associated w/ generalized weakness/fatigue, confusion and decreased appetite. History obtained from patient, and associated ED/PCP records. Patient was evaluated on 03/20/2024 by her PCP for acute concerns of fatigue, confusion, decreased appetite x 1 week and was diagnosed with a UTI. She was prescribed a 7-day course of Bactrim at that time. However, she was only able to take ~3 days worth of the Bactrim therapy d/t subsequent nausea/dry heaving. Her last dose was yesterday morning. Patient was seen again by her PCP this morning, who referred her here to the ED for further management following failure of outpatient Bactrim therapy. Patient seen at bedside. Patient is accompanied in the room by her daughter, Kylie, and her , Leno, whom provide additional history. Patient is still having the same ongoing symptoms as above (i.e., fatigue, confusion and decreased appetite). Patient's reports that she has not eaten a full meal in approximately 1 week, and has not had a bowel movement in approximately a week and a half. Although, patient states that she typically has 1 bowel movement per week at baseline. Patient's daughter reports that she has not been hydrating well at home, and that she appears visibly dehydrated. Patient's states that she "has not been acting like herself" recently, and may even be hallucinating a little bit. Patient denies any episodes of vomiting, or current nausea. She did receive 4 mg IV Zofran and 1 L of NSS in the ED. Patient denies any recent fevers, chills or body aches. Patient's daughter reports that she does not have the "typical UTI symptoms," such as dysuria, increased urinary frequency or fever. Patient denies any abdominal discomfort or pain. She further denies any SOB, chest pain, headaches, lightheadedness/dizziness, recent falls or trauma. Patient attended her sister's approximately 2 weeks ago, and multiple attendees have recently reported testing positive for COVID-19. Patient's states that she did have a runny nose and some sinus congestion over the weekend, which have since resolved. Patient currently lives with her in a trailer, and their daughter lives in a trailer right next to them. Patient ambulates with a cane at home, and denies any recent issues with ambulation. Admission Exam Per Admitting Provider General Appearance: Vitals as above, resting in bed in no acute distress. Head: Normocephalic, atraumatic. Eyes: Normal inspection, PERRL, conjunctivae normal, anicteric sclerae. ENT: External ear and nose normal, oropharynx normal. Neck: Normal visual inspection, trachea midline, no thyromegaly. Respiratory: Normal respiratory effort, lungs clear to auscultation, no wheeze, rales, rhonchi. No accessory muscle use. Cardiovascular: Regular rate, rhythm, no murmur, normal peripheral pulses, no BLE edema. Vessels: No JVD. Chest: Normal inspection of chest. Abdomen/GI: Normal bowel sounds, soft, nontender, no hepatosplenomegaly. Extremities/Musculoskeletal: No cyanosis or clubbing, extremities motor strength 5/5. Chronic essential tremor of her left hand noted. Neurologic: PERRL, EOMI, accommodation nl, no face palsy, no dysarthria, CN's II-XI grossly intact bilaterally and moves all extremities. Psychiatric: A+Ox3, euthymic affect. Skin: No rashes, normal color, warm/dry. Healing wound present on the lateral aspect of left lower leg. No tenderness or surrounding erythema present. Principal Diagnosis UTI due to Klebsiella Discharge Exam General: Lying comfortably in bed, not in distress, on room air HEENT: EOMI, GEOFF, MMM Chest: Clear breath sounds bilaterally, no wheezes or crackles CVS: Regular rate and rhythm, normal heart sounds, no murmur Abdomen: Soft, non tender, not distended, normal bowel sounds Neuro: Awake, alert, oriented, conversing well, non focal Extremities: No edema Discharge Data Allergies Allergy/AdvReac Type Severity Reaction Status Date / Time brimonidine Allergy Severe RED AND Verified 01/18/21 15:49 IRRITATED EYES carboxymethylcellulose sodium Allergy Severe REDAND Verified 03/25/24 15:29 [From Refresh Plus] IRRITATED EYES cephalexin Allergy Unknown INTERACTS Verified 01/18/21 15:49 WITH A MEDICATION PT TAKES Consultations 03/25/24 11:53 ED Decision to Admit Stat Ordered Studies 03/25/24 09:57 CT head/brain wo con Stat 03/25/24 09:58 CT abd pelvis wo con Stat Laboratory Results WBC 7.03 K/ul (4.8-10.8) 03/26/24 07:30 RBC 4.04 M/uL (4.20-5.40) L 03/26/24 07:30 Hgb 11.9 g/dl (12.0-16.0) L 03/26/24 07:30 Hct 34.1 % (37.0-47.0) L 03/26/24 07:30 MCV 84.4 fL (80.0-100.0) 03/26/24 07:30 MCH 29.5 pg (25.0-34.0) 03/26/24 07:30 MCHC 34.9 g/dL (32.0-36.0) 03/26/24 07:30 RDW Std Deviation 42.5 fL (36.4-46.3) 03/26/24 07:30 RDW Coeff of Dona 13.7 % (11.5-14.5) 03/26/24 07:30 Plt Count 249 K/uL (130-400) 03/26/24 07:30 MPV 9.1 fL (9.4-12.4) L 03/26/24 07:30 Immature Gran % (Auto) 0.6 % 03/25/24 10:25 Neut % (Auto) 69.5 % 03/25/24 10:25 Lymph % (Auto) 21.5 % 03/25/24 10:25 [place] % (Auto) 7.2 % 03/25/24 10:25 Eos % (Auto) 0.5 % 03/25/24 10:25 Baso % (Auto) 0.7 % 03/25/24 10:25 Neut # (Auto) 6.93 K/uL (1.40-6.50) H 03/25/24 10:25 Lymph # (Auto) 2.15 K/uL (1.20-3.40) 03/25/24 10:25 [place] # (Auto) 0.72 K/uL (0.11-0.59) H 03/25/24 10:25 Eos # (Auto) 0.05 K/uL (0.00-0.50) 03/25/24 10:25 Baso # (Auto) 0.07 K/uL (0.00-0.20) 03/25/24 10:25 Immature Gran # (Auto) 0.06 K/uL (0.01-0.20) 03/25/24 10:25 PT 11.3 Seconds (9.0-12.0) 03/25/24 10:25 INR 1.0 (0.9-1.1) 03/25/24 10:25 Sodium 135 mmol/L (136-145) L 03/26/24 07:30 Potassium 4.0 mmol/L (3.5-5.1) 03/26/24 07:30 Chloride 105 mmol/L (98-107) 03/26/24 07:30 Carbon Dioxide 22 mmol/L (21-32) 03/26/24 07:30 Anion Gap 8 (3-11) 03/26/24 07:30 BUN 19 mg/dl (6-23) 03/26/24 07:30 Creatinine 1.35 mg/dl (0.6-1.2) H D 03/26/24 07:30 Est Cr Clr Drug Dosing 32.2 ml/min 03/26/24 07:30 Est GFR ( Amer) 42.3 ml/min 03/26/24 07:30 Est GFR (Non-Af Amer) 36.5 ml/min 03/26/24 07:30 BUN/Creatinine Ratio 14.1 (10-20) 03/26/24 07:30 Glucose 99 mg/dl (70-99(Fasting)) 03/26/24 07:30 Calcium 8.7 mg/dl (8.6-10.3) 03/26/24 07:30 Magnesium 2.0 mg/dl (1.7-2.4) 03/25/24 10:25 Total Bilirubin 0.5 mg/dl (0.2-1.0) 03/25/24 10:25 AST 25 U/L (13-39) 03/25/24 10:25 ALT 16 U/L (7-52) 03/25/24 10:25 Alkaline Phosphatase 73 U/L (34-104) 03/25/24 10:25 Total Creatine Kinase 59 U/L (26-192) 03/25/24 10:25 Troponin I High Sens 8.4 pg/ml (0-14) 03/25/24 10:25 Total Protein 7.1 gm/dl (6.0-8.3) 03/25/24 10:25 Albumin 4.2 gm/dl (3.4-5.0) 03/25/24 10:25 Globulin 2.9 gm/dl (2.5-4.0) 03/25/24 10:25 Albumin/Globulin Ratio 1.4 (0.9-2) 03/25/24 10:25 Lipase 17 U/L (11-82) 03/25/24 10:25 Procalcitonin 0.03 ng/ml (0-0.5) 03/25/24 10:25 TSH 1.114 uIu/ml (0.300-4.500) 03/25/24 10:25 Urine Color Yellow 03/25/24 09:55 Urine Appearance Cloudy (Clear) A 03/25/24 09:55 Urine pH 6.0 (4.5-7.5) 03/25/24 09:55 Ur Specific [place] 1.011 (1.000-1.030) 03/25/24 09:55 Urine Protein 1+ (Negative) H 03/25/24 09:55 Urine Glucose (UA) Negative (Negative) 03/25/24 09:55 Urine Ketones Negative (Negative) 03/25/24 09:55 Urine Blood Negative (Negative) 03/25/24 09:55 Urine Nitrite Negative (Negative) 03/25/24 09:55 Urine Bilirubin Negative (Negative) 03/25/24 09:55 Urine Urobilinogen Negative (Negative) 03/25/24 09:55 Ur Leukocyte Esterase 3+ (Negative) H 03/25/24 09:55 Urine WBC (Auto) >50 /hpf (0-5) H 03/25/24 09:55 Urine RBC (Auto) 0-2 /hpf (0-2) 03/25/24 09:55 U Hyaline Cast (Auto) 3-5 /lpf (0-2) H 03/25/24 09:55 U Epithel Cells (Auto) 0-2 /hpf (0-2) 03/25/24 09:55 Urine Bacteria (Auto) 4+ (None Seen) H 03/25/24 09:55 Adenovirus (PCR) Not Detected (NotDetected) 03/25/24 10:03 B. pertussis DNA (PCR) Not Detected (NotDetected) 03/25/24 10:03 B.parapertussis DNA PCR Not Detected (NotDetected) 03/25/24 10:03 C. pneumoniae DNA (PCR) Not Detected (NotDetected) 03/25/24 10:03 Coronavirus OC43 (PCR) Not Detected (NotDetected) 03/25/24 10:03 Coronavirus HKU1 (PCR) Not Detected (NotDetected) 03/25/24 10:03 Coronavirus 229E (PCR) Not Detected (NotDetected) 03/25/24 10:03 SARS-CoV-2 (PCR) DETECTED (NotDetected) A 03/25/24 10:03 Coronavirus NL63 (PCR) Not Detected (NotDetected) 03/25/24 10:03 Human Metapneumovir PCR Not Detected (NotDetected) 03/25/24 10:03 Influenza Type A (PCR) Not Detected (NotDetected) 03/25/24 10:03 Influenza Type B (PCR) Not Detected (NotDetected) 03/25/24 10:03 M. pneumoniae (PCR) Not Detected (NotDetected) 03/25/24 10:03 Parainfluenza 1 (PCR) Not Detected (NotDetected) 03/25/24 10:03 Parainfluenza 2 (PCR) Not Detected (NotDetected) 03/25/24 10:03 Parainfluenza 3 (PCR) Not Detected (NotDetected) 03/25/24 10:03 Parainfluenza 4 (PCR) Not Detected (NotDetected) 03/25/24 10:03 RSV (PCR) Not Detected (NotDetected) 03/25/24 10:03 Entero/Rhino (PCR) Not Detected (NotDetected) 03/25/24 10:03 Impressions Chest X-Ray 03/25/24 09:42 XR chest 1V portable CLINICAL HISTORY: weakness COMPARISON STUDY: Chest radiograph June 10, 2018. FINDINGS: Lung volumes are normal. Lungs are clear. There is no pneumothorax or pleural effusion. Mild cardiomegaly is unchanged. Mediastinal contours are normal. There is no evidence for pulmonary edema. IMPRESSION: No acute cardiopulmonary findings. No change in appearance of the chest. ACT 112: Negative or not required by law. Electronically signed by: Fili Mckinley M.D. 03/25/2024 10:[address] 03/25/24 09:57 CT SCAN OF THE BRAIN WITHOUT IV CONTRAST CLINICAL HISTORY: Change in mental status. Nausea. Generalized weakness. COMPARISON STUDY: No priors. TECHNIQUE: Unenhanced axial CT scan of the brain is performed from the vertex to the skull base. A dose lowering technique was utilized adhering to the principles of ALARA. FINDINGS: Brain parenchyma: There is age-related involutional change noting advanced subcortical and periventricular microangiopathic disease. There is no hemorrhage, mass effect, or evidence of acute territorial ischemia by CT criteria. Andrade-white matter differentiation is preserved. No extra-axial fluid collection is seen. Ventricles, sulci, cisterns: Prominent secondary to involutional change. Intracranial vasculature: There is atherosclerotic calcification of the cavernous carotid and vertebral arteries. Calvarium: Unremarkable. Sinuses and mastoids: There is trace mucosal thickening within the partially imaged maxillary antra, as well as within the left frontal, anterior ethmoid, and the sphenoid sinuses. The mastoid air cells are well pneumatized. Orbits: The bony orbits are grossly intact. IMPRESSION: There is no hemorrhage, mass effect, or evidence of acute territorial ischemia by CT criteria. ACT 112: Negative or not required by law. Electronically signed by: Gustavo Navarrete M.D. 03/25/2024 10:29 AM Abdomen/Pelvis CT 03/25/24 09:58 CT OF THE ABDOMEN AND PELVIS WITHOUT CONTRAST CLINICAL HISTORY: Abdominal pain and nausea. COMPARISON STUDY: No previous studies for comparison. TECHNIQUE: Axial images of the abdomen and pelvis were obtained without IV contr ast. Images were reviewed in the axial, sagittal, and coronal planes. Automated exposure control was utilized for the study. A dose lowering technique was utilized adhering to the principles of ALARA. FINDINGS: No pneumatosis, free air or portal venous gas is present. No renal, ureteral or bladder calculi are present. There is no hydronephrosis. Evaluation the remainder of the abdomen and pelvis is suboptimal on this unenhanced exam. There is a small hiatal hernia. Liver, spleen, adrenal glands and pancreas are unremarkable. There is no biliary or pancreatic ductal dilatation. There is no peripancreatic or pericholecystic infiltration. Gallbladder is slightly distended. Extensive colonic diverticulosis without evidence for acute diverticulitis. The appendix is not visualized. There is no evidence for a bowel obstruction. There is no lymphadenopathy. No fluid collections are present. No acute fractures are identified within the visualized skeletal structures. IMPRESSION: 1. No urinary calculi or hydronephrosis. 2. Extensive colonic diverticulosis. No evidence for acute diverticulitis. 3. No bowel obstruction. No bowel wall thickening on unenhanced exam. ACT 112: Negative or not required by law. Electronically signed by: Fili Mckinley M.D. 03/25/2024 10:37 AM Hospital Course (1) Acute UTI: (2) COVID-19: (3) Generalized weakness: (4) Paroxysmal atrial fibrillation: (5) Acute kidney injury superimposed on chronic kidney disease: Delores Forte is an 83y/o F with PMHx of acquired hypothyroidism, dyslipidemia, paroxysmal atrial fibrillation [not currently on oral anticoagulation therapy], HTN, CAD, CKD stage III, urinary incontinence, TIA, GERD w/o esophagitis, benign essential tremor of left hand, generalized osteoarthritis, recurrent UTI, neuropathic pain and other problems listed below who presented to the ED for evaluation of ongoing urinary symptoms associated w/ generalized weakness/fatigue, confusion and decreased appetite. Patient was evaluated on 03/20/2024 by her PCP for acute concerns of fatigue, confusion, decreased appetite x 1 week and was diagnosed with a UTI. She was prescribed a 7-day course of Bactrim at that time. However, she was only able to take ~3 days worth of the Bactrim therapy d/t subsequent nausea/dry heaving. Patient was seen again by her PCP who referred her here to the ED for further management following failure of outpatient Bactrim therapy. Urine culture grew Klebsiella resistant to bactrim but sensitive to ceftriaxone. She was treated with iv ceftriaxone inhouse for 2 days and she is being discharged on vantin for 5 more days. She is also incidentally covid positive but without any symptoms and did not require any treatment. Her RHEA on CKD was likely related to bactrim and HCTZ and now has trended down to 1.35. She states her strength has improved and she did well with physical therapy and is anxious to go home. She is comfortable and stable for discharge home. Updated at bedside and daughter over the phone. Acute UTI with Klebsiella- failed outpatient Bactrim treatment as Klebsiella was found resistant to bactrim per urine clx results. Sensitive to ceftriaxone. S/p ceftriaxone->vantin for [address] A/P with no acute abnormality. RHEA on CKD- Resolved. Creatinine back to baseline of 1.3-1.4 from peak of 1.77, this is likely related to Bactrim and HCTZ. Bactrim has been discontinued. Hyponatremia- resolved. Can resume HCTZ at discharge and follow up with PCP w ith repeat BMP in 1-2 weeks. COVID-19- incidental finding, no symptoms, does not require treatment. Paroxysmal atrial fibrillation- continue propafenone, not on anticoagulant treatment as outpatient. follow-up with PCP as outpatient. Hypertension- continue amlodipine, HCTZ at discharge Hypothyroidism- continue levothyroxine Total Time Total Time Spent Total Time Spent (In Minutes): 33 Discharge Plan Discharge Items Patient Disposition: Home - Self-Care Reason For Visit: complicated uti Discharge Diagnosis: UTI due to Klebsiella Activity: Resume your previous activity Non-emergency contact: Primary Care Provider Call non-emergency contact if: you have any medication questions, your symptoms worsen and you have a fever Follow-up/Referrals: Ethel Sanders DO [Outside Practitioners] - (Date & Time 04/03/2024 2:00 PM Provider Jefe Marroquin MD Department Family Medicine [facility] ) Diet: Regular Addtl Attending Provider Instructions: Continue vantin twice daily for 5 days starting tomorrow morning Follow up with your family doctor Pending Studies at Discharge: No Stand-Alone Forms: My [employer], Smoking Cessation Medications and DC Order Prescriptions: New cefpodoxime 200 mg tablet 200 mg PO BID Qty: 10 0RF Rx Instructions: must administer with a meal/food Continued multivitamin Tablet 1 tab PO QAM Qty: 0 latanoprost [Xalatan] 0.005 % Drops 1 drp ophthalmic (eye) HS Qty: 0 propafenone 150 mg Tablet 150 mg PO TID Qty: 0 pravastatin 40 mg Tablet 40 mg PO HS Qty: 0 amlodipine 5 mg Tablet 5 mg PO QAM Qty: 0 levothyroxine 25 mcg Tablet 25 mcg PO QAM Qty: 0 pantoprazole [Protonix] 40 mg Tablet,Delayed Release (Dr/Ec) 40 mg PO QAM PRN (Reason: Other) Qty: 0 hydrochlorothiazide 25 mg Tablet 12.5 mg PO QAM Qty: 0 dorzolamide [Trusopt] 2 % Drops 1 drp OPB HS Qty: 0 magnesium chloride [Mag 64] 64 mg Tablet,Delayed Release (Dr/Ec) 64 mg PO BID Qty: 0 gabapentin 100 mg capsule 300 mg PO TID aspirin 81 mg tablet,delayed release (DR/EC) 81 mg PO PM cholecalciferol (vitamin D3) 75 mcg (3,000 unit) tablet 2,000 unit PO QAM Rx Instructions: after breakfast 2000units PO daily; Discharge Orders: Discharge Order (Routine); Ordered 03/27/24 Ordered By: Farhan Chopra/Other Patient Handouts: UTIs Admission Data Admit Date/Time: 03/25/24 12:19 Attending Provider: Farhan Colon Admit Provider: Sera Lopez Primary Care Provider: Jenny Casiano Other Providers: Sera Lopez Other Interventions: Discharge Summary Assessment (RN) Last Done: 03/27/24 12:18
== END 2024-03-27 13:28 | disposition home or self-care (01) | DRG 689 ==
LOC: ED 09:25 → SUATTDRO 12:19 → EDINP 12:19 → INTOOBSV 12:19 → 2W 15:26

== ENCOUNTER 2024-12-21 17:40 | Inpatient (IN) ==
--- NOTE | 2024-12-21 18:14 | Emergency Department Note ---
Impression & Plan Generalized weakness, Rhinovirus infection, Nausea, LLL pneumonia ED Provider Note Provider: Robert Moulton MD CHIEF COMPLAINT: Cough, shortness of breath, vomiting, weakness HISTORY OF PRESENT ILLNESS: Patient is a 84-year-old female history of paroxysmal defibrillation, CAD, TIA can hypothyroidism, hypretension presenting here today with daughter. Has been sick for about a week or so. Some cough and shortness of breath and had some diarrhea. Developed last several days nausea and vomiting with the doxycycline antibiotic prescribed from the doctors visit this past Sunday. He is weak. Has not fallen or syncopized however. Little bit of chest discomfort mainly with coughing. Stable chronic swelling of the legs. No significant abdominal pain reported. Has had difficulty taking her medications due to the nausea today. PAST MEDICAL HISTORY: As noted above MEDICATIONS: Reviewed home medication list SOCIAL HISTORY: Lives at home with PHYSICAL EXAM: GENERAL: alert and oriented in no acute distress on stretcher occasionally coughing fatigued in appearance Head: normocephalic and atraumatic EYES: No injection, discharge or icterus. EOMI. NECK: Trachea midline. Supple. ENT: Mucous membranes pink and moist. LUNGS: Airway patent. No retractions. Breath sounds coarse with occasional coughing HEART: Regular rate and rhythm. Mild slight anterior chest wall tenderness ABDOMEN: Soft and non-tender, without guarding or rebound. SKIN: Acyanotic, warm, dry, without rashes EXTREMITIES: Without tenderness with 1-2+ lower extreme edema with some slight venous stasis changes/mild erythema. NEUROLOGICAL: No focal deficits. No aphasia. No facial droop or slurred speech. EK bpm normal sinus rhythm. No PVC. No acute ST segment elevation or significant impression with some T wave abnormalities with what appears to be some baseline artifact with a QTc of 418. CONTINUOUS CARDIAC MONITORING: was ordered and showed a heart rate of 80s to 90s bpm in normal sinus rhythm Patient's laboratory studies and imaging reviewed. Differential includes Infection, dehydration, metabolic abnormality, hypo/hyperglycemia, electrolyte disturbance, anemia, hypoxia, cardiac sources, intracerebral event, toxicologic, neurologic, as well as other pathologies. IMPRESSION/MEDICAL DECISION MAKING: Patient with some ongoing cough and cold and shortness of breath symptoms. Some GI symptoms but no significant abdominal pain and benign abdomen on exam. Little bit of likely musculoskeletal chest pain given the cough and chronic unchanged swelling of the legs by her report. Question viral syndrome possible COVID or flu given her constellation of symptoms. Has been able to keep down a lot of her medications related to nausea and vomiting and possibly related to the doxycycline she is on. The infectious symptoms do not seem consistent with PE. Blood work is sent as well as cultures lactate and respiratory viral panel here. Chest x-ray obtained. Patient is not hypoxic here upon arrival or hypotensive. Afebrile. Blood work here shows no significant leukocytosis or severe anemia. No significant electrolyte abnormal beyond some low magnesium which was replaced and no signs of acute renal dysfunction. Troponin 17 not severely elevated. BNP minimally at 175. Procalcitonin elevated. No dense transaminitis or pancreatitis based on labs. Chest x-ray concerning for possible left lower lobe infiltrate. No pneumothorax or gross pulmonary edema noted. Given this and her symptoms will cover with an IV dose of ceftriaxone. Respiratory viral panel returns positive for entero-/rhinovirus. Seem consistent viral illness began this and likely with the doxycycline has caused some of the nausea and vomiting issues. Updated family as well as patient at bedside. Given her weakness and difficulties with her medications and ongoing symptoms discussed staying for further care here. She is agreeable. Resting here her oxygen does drop to the high 80s but upon awakening does bounce back up in the low 90s. Will continue to monitor. Hospitalist team contacted. DIAGNOSIS: Weakness, entero-/rhinovirus, nausea, left lower lobe pneumonia, hypomagnesemia DISPOSITION: Hospitalist will evaluate Patient was agreeable with this plan. Past Med/Surg History Problem List (Updated 12/21/24 @ 20:01 by Robert Moulton M.D.) LLL pneumonia (Acute) Nausea (Acute) Rhinovirus infection (Acute) Neuropathic pain Paroxysmal atrial fibrillation CAD (coronary artery disease) History of TIA (transient ischemic attack) Glaucoma GERD (gastroesophageal reflux disease) Generalized osteoarthritis Hypothyroidism Hyperlipidemia Hypertension Generalized weakness (Acute) Complicated UTI (urinary tract infection) COVID-19 (Acute) Medical History (Updated 12/21/24 @ 20:01 by Robert Moulton M.D.) Sensorineural hearing loss (SNHL) of both ears Obesity (BMI 30.0-34.9) Hiatal hernia History of tachycardia TACHYCARDIA S/P CARDIOVERSION [address] [facility]. NO PROBLEMS SINCE. 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 NO PROBLEMS SINCE. History of bilateral tubal ligation History of carpal tunnel release RIGHT History of esophagogastroduodenoscopy (EGD) History of colonoscopy History of appendectomy Family History Unknown Family hx of colon cancer Father Hearing loss Mother Hypertension Stroke Heart disease Sister Colorectal cancer Brother Cancer unknown type Heart disease Other No family history of adverse response to anesthesia No family history of bleeding disorder Social History Smoking Status: Never smoker Second Hand Exposure: No; Do You Dip or Chew Tobacco: No; Hx Alcohol Use: No Hx Substance Use: No Preferred Language: Hungarian Communication Ability: Effective Visual Impairment: Partially Limited Gold Layer Required: No Beliefs That Will Affect Care: None marital status: Current Living Situation: Spouse current occupational status: retired Feels Safe at Home: Yes Assistive Devices: Cane and Walker Allergies Allergies Allergy/AdvReac Type Severity Reaction Status Date / Time brimonidine Allergy Severe RED AND Verified 01/18/21 15:49 IRRITATED EYES carboxymethylcellulose sodium Allergy Severe REDAND Verified 03/25/24 15:29 [From Refresh Plus] IRRITATED EYES cephalexin Allergy Unknown INTERACTS Verified 01/18/21 15:49 WITH A MEDICATION PT TAKES Home Meds Home Medications Medication Instructions Recorded Confirmed amlodipine 5 mg tablet 7.5 mg PO QAM #0 tabs 05/27/18 12/21/24 latanoprost 0.005 % eye drops 1 drp OPB HS ##0 05/27/18 12/21/24 (Xalatan) levothyroxine 25 mcg tablet 25 mcg PO QAM #0 tabs 05/27/18 12/21/24 magnesium chloride 64 mg 64 mg PO BID #0 tabs 05/27/18 12/21/24 (magnesium chloride) tablet,delayed release (Mag 64) multivitamin 1 tab PO QAM #0 tabs 05/27/18 12/21/24 pravastatin 40 mg tablet 40 mg PO QPM ##0 05/27/18 12/21/24 propafenone 150 mg tablet 150 mg PO Q8 ##0 05/27/18 12/21/24 aspirin 81 mg tablet,delayed 81 mg PO PM 01/18/21 12/21/24 release cholecalciferol (vitamin D3) 75 2,000 unit PO QAM 01/18/21 12/21/24 mcg (3,000 unit) tablet donepezil 5 mg tablet 5 mg PO QAM 12/21/24 12/21/24 doxycycline hyclate 100 mg capsule 100 mg PO BID 12/21/24 12/21/24 gabapentin 300 mg capsule 300 mg PO TID 12/21/24 12/21/24 hydrochlorothiazide 12.5 mg capsule 12.5 mg PO QAM 12/21/24 12/21/24 losartan 25 mg tablet 25 mg PO DAILY 12/21/24 12/21/24 Results & Data (ED) Vital Signs Vital Signs - 24 hr 12/21/24 17:49 12/21/24 18:23 12/21/24 18:25 Temperature 36.8 C Temperature Source Temporal Artery Scan Pulse Rate 103 H 91 H Pulse Rate [Apical] 78 Pulse Rhythm Pulse Rhythm [Apical] Regular Pulse Strength [Apical] Normal Respiratory Rate 20 18 Respiratory Effort / Characteristics Non-Labored Non-Labored Spontaneous Respiratory Depth Normal Normal Respiratory Pattern Regular Blood Pressure 140/69 Blood Pressure [Right Arm] 171/80 H Blood Pressure Mean 92 Blood Pressure Mean [Right Arm] 110 Blood Pressure Position [Right Arm] Sitting Pulse Oximetry 97 98 Oxygen Delivery Method Room Air Room Air Sepsis Recent Fever Within 48 Hours No Sepsis New/Unexplained Change in Mental Status No Sepsis Action Taken by Nursing No Action Required 12/21/24 18:25 Temperature Temperature Source Pulse Rate 87 Pulse Rate [Apical] Pulse Rhythm Regular Pulse Rhythm [Apical] Pulse Strength [Apical] Respiratory Rate 18 Respiratory Effort / Characteristics Respiratory Depth Respiratory Pattern Blood Pressure Blood Pressure [Right Arm] Blood Pressure Mean Blood Pressure Mean [Right Arm] Blood Pressure Position [Right Arm] Pulse Oximetry 98 Oxygen Delivery Method Room Air Sepsis Recent Fever Within 48 Hours Sepsis New/Unexplained Change in Mental Status Sepsis Action Taken by Nursing Laboratory Data 12/21/24 18:13 12/21/24 18:13 Lab Results 12/21/24 Range/Units 18:13 WBC 8.69 (4.8-10.8) K/ul RBC 4.18 L (4.20-5.40) M/uL Hgb 12.4 (12.0-16.0) g/dl Hct 36.0 L (37.0-47.0) % MCV 86.1 (80.0-100.0) fL MCH 29.7 (25.0-34.0) pg MCHC 34.4 (32.0-36.0) g/dL RDW Std Deviation 41.4 (36.4-46.3) fL RDW Coeff of Dona 13.2 (11.5-14.5) % Plt Count 263 (130-400) K/uL MPV 8.8 L (9.4-12.4) fL Immature Gran % (Auto) 0.6 % Neut % (Auto) 58.9 % Lymph % (Auto) 29.3 % [place] % (Auto) 9.1 % Eos % (Auto) 1.5 % Baso % (Auto) 0.6 % Neut # (Auto) 5.12 (1.40-6.50) K/uL Lymph # (Auto) 2.55 (1.20-3.40) K/uL [place] # (Auto) 0.79 H (0.11-0.59) K/uL Eos # (Auto) 0.13 (0.00-0.50) K/uL Baso # (Auto) 0.05 (0.00-0.20) K/uL Immature Gran # (Auto) 0.05 (0.01-0.20) K/uL PT 11.5 (9.0-12.0) Seconds INR 1.1 (0.9-1.1) Sodium 136 (136-145) mmol/L Potassium 3.5 (3.5-5.1) mmol/L Chloride 101 (98-107) mmol/L Carbon Dioxide 23 (21-32) mmol/L Anion Gap 12 H (3-11) BUN 10 (6-23) mg/dl Creatinine 1.07 (0.6-1.2) mg/dl Est Cr Clr Drug Dosing 42.2 ml/min eGFR 51.54 BUN/Creatinine Ratio 9.3 L (10-20) Glucose 91 (70-99(Fasting)) mg/dl Lactate 1.0 (0.4-2.0) mmol/L Calcium 9.8 (8.6-10.3) mg/dl Magnesium 1.4 L (1.7-2.4) mg/dl Total Bilirubin 0.6 (0.2-1.0) mg/dl AST 23 (13-39) U/L ALT 13 (7-52) U/L Alkaline Phosphatase 77 (34-104) U/L Total Creatine Kinase 79 (26-192) U/L Troponin I High Sens 17.0 H (0-14) pg/ml B-Natriuretic Peptide 175 H (0-100) pg/ml Total Protein 7.2 (6.0-8.3) gm/dl Albumin 4.3 (3.4-5.0) gm/dl Globulin 2.9 (2.5-4.0) gm/dl Albumin/Globulin Ratio 1.5 (0.9-2) Lipase 20 (11-82) U/L Procalcitonin 0.03 (0-0.5) ng/ml TSH 1.608 (0.300-4.500) uIu/ml Adenovirus (PCR) Not Detected (NotDetected) B. pertussis DNA (PCR) Not Detected (NotDetected) B.parapertussis DNA PCR Not Detected (NotDetected) C. pneumoniae DNA (PCR) Not Detected (NotDetected) Coronavirus OC43 (PCR) Not Detected (NotDetected) Coronavirus HKU1 (PCR) Not Detected (NotDetected) Coronavirus 229E (PCR) Not Detected (NotDetected) SARS-CoV-2 (PCR) Not Detected (NotDetected) Coronavirus NL63 (PCR) Not Detected (NotDetected) Human Metapneumovir PCR Not Detected (NotDetected) Influenza Type A (PCR) Not Detected (NotDetected) Influenza Type B (PCR) Not Detected (NotDetected) M. pneumoniae (PCR) Not Detected (NotDetected) Parainfluenza 1 (PCR) Not Detected (NotDetected) Parainfluenza 2 (PCR) Not Detected (NotDetected) Parainfluenza 3 (PCR) Not Detected (NotDetected) Parainfluenza 4 (PCR) Not Detected (NotDetected) RSV (PCR) Not Detected (NotDetected) Entero/Rhino (PCR) DETECTED A (NotDetected) Administered Medications Magnesium Sulfate/Dextrose (Magnesium Sulfate / D5w) 1 gm in 100 mls @ 200 mls/hr IV Q30M KAROLINE Stop: 12/21/24 20:14 Last Admin: 12/21/24 20:09 Dose: 200 mls/hr Documented By: Infusion: 12/21/24 20:06 Dose: Infused Documented By: Admin: 12/21/24 19:36 Dose: 200 mls/hr Documented By: GÓMEZ Discontinued Medications Ceftriaxone Sodium (Rocephin) 2,000 mg in 50 mls @ 100 mls/hr IV NOW STA Stop: 12/21/24 19:00 Last Admin: 12/21/24 19:11 Dose: 100 mls/hr Documented By: GÓMEZ Ondansetron HCl (Ondansetron Inj 2 Mg/Ml 2 Ml Vial) 4 mg IV NOW STA Stop: 12/21/24 18:19 Last Admin: 12/21/24 18:22 Dose: 4 mg Documented By: ASW Imaging Data Radiologist's Impression: Chest X-Ray 12/21/24 18:09 INDICATION: Cough. TECHNIQUE: Frontal radiograph of the chest. COMPARISON: 03/25/2024. FINDINGS: The cardiomediastinal silhouette and pulmonary vasculature appear within normal limits. Left lower lobe atelectasis/airspace disease. No pleural effusion or pneumothorax. No acute osseous abnormality evident. IMPRESSION: Left lower lobe atelectasis/airspace disease. Electronically signed by Cornelio Ocasio 12-21-2024 6:26 PM Discharge Plan Visit Data Chief Complaint: Illness Stated Complaint: COUGH, LETHARGIC, VOMIT ED Provider: Robert Moulton Discharge Problem: Generalized weakness, Rhinovirus infection, Nausea, LLL pneumonia Patient Disposition: Being Evaluated by Hospitalist Forms Stand Alone Forms: [facility] Prescriptions Prescriptions: No Action multivitamin Tablet 1 tab PO QAM Qty: 0 latanoprost [Xalatan] 0.005 % Drops 1 drp OPB HS Qty: 0 propafenone 150 mg Tablet 150 mg PO Q8 Qty: 0 pravastatin 40 mg Tablet 40 mg PO QPM Qty: 0 amlodipine 5 mg Tablet 7.5 mg PO QAM Qty: 0 levothyroxine 25 mcg Tablet 25 mcg PO QAM Qty: 0 magnesium chloride [Mag 64] 64 mg Tablet,Delayed Release (Dr/Ec) 64 mg PO BID Qty: 0 aspirin 81 mg tablet,delayed release (DR/EC) 81 mg PO PM cholecalciferol (vitamin D3) 75 mcg (3,000 unit) tablet 2,000 unit PO QAM Rx Instructions: after breakfast 2000units PO daily; doxycycline hyclate 100 mg capsule 100 mg PO BID donepezil 5 mg tablet 5 mg PO QAM Rx Instructions: take with largest meal of day hydrochlorothiazide 12.5 mg capsule 12.5 mg PO QAM losartan 25 mg tablet 25 mg PO DAILY gabapentin 300 mg capsule 300 mg PO TID Referrals Referrals: Jenny Casiano CRNP [Outside Practitioners] -
[2024-12-21] MEDS: ONDANSETRON INJ 2 MG/ML 2 ML VIAL IV STA (18:22)
--- NOTE | 2024-12-21 18:28 | XRay Report ---
INDICATION: Cough. TECHNIQUE: Frontal radiograph of the chest. COMPARISON: 03/25/2024. FINDINGS: The cardiomediastinal silhouette and pulmonary vasculature appear within normal limits. Left lower lobe atelectasis/airspace disease. No pleural effusion or pneumothorax. No acute osseous abnormality evident. IMPRESSION: Left lower lobe atelectasis/airspace disease. Electronically signed by Cornelio Ocasio 12-21-2024 6:26 PM
[2024-12-21 18:34] LABS: Basophils # (auto) 0.05 K/uL (0.00-0.20); Basophils % (auto) 0.6 %; Eosinophils # (auto) 0.13 K/uL (0.00-0.50); Eosinophils % (auto) 1.5 %; Hemoglobin 12.4 g/dl (12.0-16.0); Immature Granulocytes # (auto) 0.05 K/uL (0.01-0.20); Immature Granulocytes % (auto) 0.6 %; Lymphocytes # (auto) 2.55 K/uL (1.20-3.40); Lymphocytes % (auto) 29.3 %; Mean Corpuscular Hemoglobin 29.7 pg (25.0-34.0); Mean Corpuscular Hgb Conc 34.4 g/dL (32.0-36.0); Mean Corpuscular Volume 86.1 fL (80.0-100.0); Mean Platelet Volume 8.8 fL (9.4-12.4); Monocytes # (auto) 0.79 K/uL (0.11-0.59); Monocytes % (auto) 9.1 %; Neutrophils # (auto) 5.12 K/uL (1.40-6.50); Neutrophils % (auto) 58.9 %; Platelet Count 263 K/uL (130-400); RDW Coefficient of Variation 13.2 % (11.5-14.5); RDW Standard Deviation 41.4 fL (36.4-46.3); Red Blood Count 4.18 M/uL (4.20-5.40); White Blood Count 8.69 K/ul (4.8-10.8)
[2024-12-21 18:52] LABS: Albumin Globulin Ratio 1.5 (0.9-2); Albumin Level 4.3 gm/dl (3.4-5.0); BUN Creatinine Ratio 9.3 (10-20); Bilirubin,Total 0.6 mg/dl (0.2-1.0); Calcium 9.8 mg/dl (8.6-10.3); Creatinine Clr Calc Pharmacy 42.2 ml/min; Globulin 2.9 gm/dl (2.5-4.0); Magnesium 1.4 mg/dl (1.7-2.4); Potassium 3.5 mmol/L (3.5-5.1); Total Protein 7.2 gm/dl (6.0-8.3)
[2024-12-21 19:08] LABS: Thyroid Stimulating Hormone 1.608 uIu/ml (0.300-4.500)
[2024-12-21] MEDS: cefTRIAXone SODIUM 2,000 MG/50 ML BAG IV STA (19:11)
[2024-12-21 19:16] LABS: INR 1.1 (0.9-1.1); Prothrombin Time 11.5 Seconds (9.0-12.0)
[2024-12-21 19:34] LABS: Adenovirus PCR Not Detected (NotDetected); Bordetella parapertussis PCR Not Detected (NotDetected); Bordetella pertussis PCR Not Detected (NotDetected); Chlamydia pneumoniae PCR Not Detected (NotDetected); Coronavirus 229E PCR Not Detected (NotDetected); Coronavirus CoV-2 (COVID19)PCR Not Detected (NotDetected); Coronavirus HKU1 PCR Not Detected (NotDetected); Coronavirus NL63 PCR Not Detected (NotDetected); Coronavirus OC43PCR Not Detected (NotDetected); Human Metapneumovirus PCR Not Detected (NotDetected); Influenza A PCR Not Detected (NotDetected); Influenza B PCR Not Detected (NotDetected); Mycoplasma pneumoniae PCR Not Detected (NotDetected); Parainfluenza Virus 1 PCR Not Detected (NotDetected); Parainfluenza Virus 2 PCR Not Detected (NotDetected); Parainfluenza Virus 3 PCR Not Detected (NotDetected); Parainfluenza Virus 4 PCR Not Detected (NotDetected); Respiratory Syncytial VirusPCR Not Detected (NotDetected); Rhinovirus/Enterovirus PCR DETECTED (NotDetected)
[2024-12-21] MEDS: MAGNESIUM SULFATE / D5W 1 GM/100 ML BAG IV SCH (19:36)
[2024-12-21] MEDS: LOSARTAN POTASSIUM 25 MG TAB PO STA (20:25)
[2024-12-21] MEDS ORDERED: ACETAMINOPHEN 325 MG TAB PO PRN (23:55)
[2024-12-21] MEDS ORDERED: PROMETHAZINE 6.25 MG/50.25 ML BAG IV PRN (23:55)
[2024-12-22] MEDS: BENZONATATE 100 MG CAPSULE PO ONE ×2 (00:23→20:25)
[2024-12-22] MEDS: PROPAFENONE HCL 150 MG TABLET PO SCH (00:23)
[2024-12-22] MEDS: guaiFENesin 600 MG TABCR PO STA (00:24)
[2024-12-22] MEDS: NSS + 20MEQ KCL 20 MEQ/1,000 ML BAG IV ONE (00:28)
[2024-12-22] MEDS ORDERED: ACETAMINOPHEN 325 MG TAB PO PRN (03:06)
--- NOTE | 2024-12-22 06:03 | History & Physical Report ---
Date of Service December 21, 2024 Assessment & Plan (1) Acute hypoxemic respiratory failure: Plan: Acute hypoxemic respiratory failure Complicated bronchitis Entero/rhinovirus infection hx nonobstructive CAD A-fib status post Watchman device valvular heart disease (severe TR, mild MR) hypertension, slightly elevated secondary to illness hyperlipidemia, on statin Rx hx TIA hypothyroidism, euthyroid as of today's TSH prediabetes, hemoglobin A1c 5.5 from 2022 dementia, patient mentating well Admit to medical telemetry Supplemental O2 Doxycycline, nebs as needed DVT prophylaxis. Lovenox subcu DNR as per patient prior directives as per daughter, Ms. Kylie Bose. She request updates from providers through [phone]. Text document was generated using [employer] voice recognition software. It may contain grammatical or spelling errors. Kindly contact undersigned for clarification of any documentation item in question. History of Present Illness Chief Complaint: Cough, shortness of breath, nausea vomiting diarrhea Primary Care Provider: Ethel Sanders, History obtained from patient, family, and records. Limited history from patient secondary to hearing impairment/dementia Medical history significant for nonobstructive CAD, A-fib status post Watchman device, valvular heart disease (severe TR, mild MR), hypertension, hyperlipidemia, TIA, hypothyroidism, prediabetes, dementia. 2 weeks history of congestion symptoms and junky cough symptoms. Not sure about sick contacts. Denies chest pain, SOB initially. Patient seen at PCPs office 2 days ago. Suspicion for pneumonia secondary to viral illness as per note. Patient prescribed Levaquin later switched to doxycycline due to pharmacy recommendations. Worsening symptoms associated with nausea vomiting diarrhea at home. Lowest O2 sats of 80s documented at the ER. Ceftriaxone administered at the ER. Medical History as above Surgical History : Knee surgery, appendectomy, TRAN Family History : Dementia, heart disease Personal/Social history : Non-smoker, occasional EtOH intake, retired store employee Allergies Allergy/AdvReac Type Severity Reaction Status Date / Time brimonidine Allergy Severe RED AND Verified 01/18/21 15:49 IRRITATED EYES carboxymethylcellulose sodium Allergy Severe REDAND Verified 03/25/24 15:29 [From Refresh Plus] IRRITATED EYES cephalexin Allergy Unknown INTERACTS Verified 01/18/21 15:49 WITH A MEDICATION PT TAKES levofloxacin [From Levaquin] Allergy Unknown Verified 12/22/24 11:48 Home Medications Medication Instructions Recorded Confirmed Type amlodipine 5 mg tablet 7.5 mg PO QAM #0 tabs 05/27/18 12/21/24 History latanoprost 0.005 % eye drops 1 drp OPB HS ##0 05/27/18 12/21/24 History (Xalatan) levothyroxine 25 mcg tablet 25 mcg PO QAM #0 tabs 05/27/18 12/21/24 History magnesium chloride 64 mg 64 mg PO BID #0 tabs 05/27/18 12/21/24 History (magnesium chloride) tablet,delayed release (Mag 64) multivitamin 1 tab PO QAM #0 tabs 05/27/18 12/21/24 History pravastatin 40 mg tablet 40 mg PO QPM ##0 05/27/18 12/21/24 History propafenone 150 mg tablet 150 mg PO Q8 ##0 05/27/18 12/21/24 History aspirin 81 mg tablet,delayed 81 mg PO PM 01/18/21 12/21/24 History release cholecalciferol (vitamin D3) 125 125 mcg PO DAILY 12/21/24 12/21/24 History mcg (5,000 unit) tablet (Vitamin D3) donepezil 5 mg tablet 5 mg PO QAM 12/21/24 12/21/24 History doxycycline hyclate 100 mg capsule 100 mg PO BID 12/21/24 12/21/24 History gabapentin 300 mg capsule 300 mg PO TID 12/21/24 12/21/24 History hydrochlorothiazide 12.5 mg capsule 12.5 mg PO QAM 12/21/24 12/21/24 History losartan 25 mg tablet 25 mg PO DAILY 12/21/24 12/21/24 History ondansetron HCl 4 mg tablet 4 mg PO Q8H PRN Nausea 12/21/24 12/21/24 History polyethylene glycol 3350 17 17 g PO DAILY 12/21/24 12/21/24 History gram/dose oral powder Past Med/Surg History Problem List (Updated 12/22/24 @ 11:45 by Jimbo De La O MD) Acute hypoxemic respiratory failure LLL pneumonia (Acute) Nausea (Acute) Rhinovirus infection (Acute) Neuropathic pain Paroxysmal atrial fibrillation CAD (coronary artery disease) History of TIA (transient ischemic attack) Glaucoma GERD (gastroesophageal reflux disease) Generalized osteoarthritis Hypothyroidism Hyperlipidemia Hypertension Generalized weakness (Acute) Complicated UTI (urinary tract infection) COVID-19 (Acute) Medical History (Updated 12/22/24 @ 11:45 by Jimbo De La O MD) Sensorineural hearing loss (SNHL) of both ears Obesity (BMI 30.0-34.9) Hiatal hernia History of tachycardia TACHYCARDIA S/P CARDIOVERSION 18 YEARS AGO [facility]. NO PROBLEMS SINCE. History of pneumonia Degenerative disc disease Chronic back pain Hearing deficit Peripheral neuropathy L hand Surgical History History of total left knee replacement Total knee replacement status History of knee joint replacement left History of cardiac cath Diagnostic p/t cardioversion, 2000 History of cardioversion 18 YEARS AGO [facility]. NO PROBLEMS SINCE. History of bilateral tubal ligation History of carpal tunnel release RIGHT History of esophagogastroduodenoscopy (EGD) History of colonoscopy History of appendectomy Family History Unknown Family hx of colon cancer Father Hearing loss Mother Hypertension Stroke Heart disease Sister Colorectal cancer Brother Cancer unknown type Heart disease Other No family history of adverse response to anesthesia No family history of bleeding disorder Social History Smoking Status: Never smoker Second Hand Exposure: No; Do You Dip or Chew Tobacco: No; Hx Alcohol Use: No Hx Substance Use: No Preferred Language: Setswana Communication Ability: Effective Visual Impairment: Partially Limited Pediatrics Hospitalist Required: No Beliefs That Will Affect Care: None marital status: Current Living Situation: Spouse current occupational status: retired Feels Safe at Home: Yes Safety Concerns: Feels Safe At This Time Assistive Devices: Cane and Walker Review of Systems Review of Systems: Could not be reliably obtained secondary to hearing impairment/dementia Physical Exam Physical Exam: GENERAL: Comfortable, pleasant, no respiratory distress SKIN: Normal color, warm HEENT: [place] palpebral conjunctivae, no ptosis, dry buccal mucosa, nasal cannula in place NECK : Supple, no tenderness CHEST : Decreased breath sounds, no tenderness HEART : RRR, no obvious murmurs ABDOMEN: Some distention, nontender EXTREMITIES : No LE swelling/tenderness, palpable pulses, no other conspicuous deformities noted NEUROLOGIC : Demented, no facial asymmetry, hard of hearing, no other gross focality Results & Data Results & Data Vital Signs (Past 12 Hours) Vital Signs Temp Pulse Pulse Resp BP BP Pulse Ox 12/21/24 22:55 87 153/72 H 92 12/21/24 22:14 86 12/21/24 20:33 14 95 12/21/24 20:00 82 156/71 H 12/21/24 18:25 87 18 98 12/21/24 18:25 78 18 171/80 H 98 12/21/24 18:23 91 H 12/21/24 17:49 36.8 C 103 H 20 140/69 97 O2 Del Method 12/21/24 22:55 Room Air 12/21/24 22:14 12/21/24 20:33 Room Air 12/21/24 20:00 12/21/24 18:25 Room Air 12/21/24 18:25 Room Air 12/21/24 18:23 12/21/24 17:49 Room Air Laboratory Results 12/21/24 Range/Units 18:13 WBC 8.69 (4.8-10.8) K/ul RBC 4.18 L (4.20-5.40) M/uL Hgb 12.4 (12.0-16.0) g/dl Hct 36.0 L (37.0-47.0) % MCV 86.1 (80.0-100.0) fL MCH 29.7 (25.0-34.0) pg MCHC 34.4 (32.0-36.0) g/dL RDW Std Deviation 41.4 (36.4-46.3) fL RDW Coeff of Dona 13.2 (11.5-14.5) % Plt Count 263 (130-400) K/uL MPV 8.8 L (9.4-12.4) fL Immature Gran % (Auto) 0.6 % Neut % (Auto) 58.9 % Lymph % (Auto) 29.3 % Drew % (Auto) 9.1 % Eos % (Auto) 1.5 % Baso % (Auto) 0.6 % Neut # (Auto) 5.12 (1.40-6.50) K/uL Lymph # (Auto) 2.55 (1.20-3.40) K/uL Drew # (Auto) 0.79 H (0.11-0.59) K/uL Eos # (Auto) 0.13 (0.00-0.50) K/uL Baso # (Auto) 0.05 (0.00-0.20) K/uL Immature Gran # (Auto) 0.05 (0.01-0.20) K/uL PT 11.5 (9.0-12.0) Seconds INR 1.1 (0.9-1.1) Sodium 136 (136-145) mmol/L Potassium 3.5 (3.5-5.1) mmol/L Chloride 101 (98-107) mmol/L Carbon Dioxide 23 (21-32) mmol/L Anion Gap 12 H (3-11) BUN 10 (6-23) mg/dl Creatinine 1.07 (0.6-1.2) mg/dl Est Cr Clr Drug Dosing 42.2 ml/min eGFR 51.54 BUN/Creatinine Ratio 9.3 L (10-20) Glucose 91 (70-99(Fasting)) mg/dl Lactate 1.0 (0.4-2.0) mmol/L Calcium 9.8 (8.6-10.3) mg/dl Magnesium 1.4 L (1.7-2.4) mg/dl Total Bilirubin 0.6 (0.2-1.0) mg/dl AST 23 (13-39) U/L ALT 13 (7-52) U/L Alkaline Phosphatase 77 (34-104) U/L Total Creatine Kinase 79 (26-192) U/L Troponin I High Sens 17.0 H (0-14) pg/ml B-Natriuretic Peptide 175 H (0-100) pg/ml Total Protein 7.2 (6.0-8.3) gm/dl Albumin 4.3 (3.4-5.0) gm/dl Globulin 2.9 (2.5-4.0) gm/dl Albumin/Globulin Ratio 1.5 (0.9-2) Lipase 20 (11-82) U/L Procalcitonin 0.03 (0-0.5) ng/ml TSH 1.608 (0.300-4.500) uIu/ml Adenovirus (PCR) Not Detected (NotDetected) B. pertussis DNA (PCR) Not Detected (NotDetected) B.parapertussis DNA PCR Not Detected (NotDetected) C. pneumoniae DNA (PCR) Not Detected (NotDetected) Coronavirus OC43 (PCR) Not Detected (NotDetected) Coronavirus HKU1 (PCR) Not Detected (NotDetected) Coronavirus 229E (PCR) Not Detected (NotDetected) SARS-CoV-2 (PCR) Not Detected (NotDetected) Coronavirus NL63 (PCR) Not Detected (NotDetected) Human Metapneumovir PCR Not Detected (NotDetected) Influenza Type A (PCR) Not Detected (NotDetected) Influenza Type B (PCR) Not Detected (NotDetected) M. pneumoniae (PCR) Not Detected (NotDetected) Parainfluenza 1 (PCR) Not Detected (NotDetected) Parainfluenza 2 (PCR) Not Detected (NotDetected) Parainfluenza 3 (PCR) Not Detected (NotDetected) Parainfluenza 4 (PCR) Not Detected (NotDetected) RSV (PCR) Not Detected (NotDetected) Entero/Rhino (PCR) DETECTED A (NotDetected) CTA chest: 1. Cardiomegaly with moderate coronary artery calcifications. 2. No pulmonary emboli identified. 3. No pleural effusion or airspace consolidation. Diagnostic Findings EKG as per my interpretation :Rate 90, NSR, normal axis, nonspecific Abnormalities
[2024-12-22] MEDS: LEVOTHYROXINE SODIUM 25 MCG TABLET PO SCH (06:24)
[2024-12-22 08:07] LABS: Basophils # (auto) 0.05 K/uL (0.00-0.20); Basophils % (auto) 0.8 %; Eosinophils # (auto) 0.18 K/uL (0.00-0.50); Eosinophils % (auto) 2.8 %; Hemoglobin 10.1 g/dl (12.0-16.0); Immature Granulocytes # (auto) 0.03 K/uL (0.01-0.20); Immature Granulocytes % (auto) 0.5 %; Lymphocytes # (auto) 1.96 K/uL (1.20-3.40); Mean Corpuscular Hemoglobin 29.4 pg (25.0-34.0); Mean Corpuscular Hgb Conc 33.7 g/dL (32.0-36.0); Mean Corpuscular Volume 87.5 fL (80.0-100.0); Monocytes % (auto) 11.1 %; Neutrophils # (auto) 3.41 K/uL (1.40-6.50); Neutrophils % (auto) 53.8 %; Platelet Count 224 K/uL (130-400); RDW Coefficient of Variation 13.5 % (11.5-14.5); RDW Standard Deviation 42.9 fL (36.4-46.3); Red Blood Count 3.43 M/uL (4.20-5.40); White Blood Count 6.33 K/ul (4.8-10.8)
[2024-12-22 09:16] LABS: BUN Creatinine Ratio 9.8 (10-20); Calcium 8.6 mg/dl (8.6-10.3); Creatinine Clr Calc Pharmacy 49.1 ml/min; Magnesium 1.8 mg/dl (1.7-2.4)
[2024-12-22 09:21] LABS: Potassium 3.7 mmol/L (3.5-5.1)
[2024-12-22] MEDS: amLODIPine BESYLATE 5 MG TAB PO SCH (09:27)
[2024-12-22] MEDS: GABAPENTIN 300 MG CAP PO SCH (09:30)
[2024-12-22] MEDS: DOXYCYCLINE HYCLATE 100 MG CAP PO SCH (09:30)
[2024-12-22] MEDS: guaiFENesin 600 MG TABCR PO SCH (09:30)
[2024-12-22] MEDS: MULTIVITAMIN TAB PO SCH (09:31)
[2024-12-22] MEDS: LOSARTAN POTASSIUM 25 MG TAB PO SCH (09:31)
[2024-12-22] MEDS: MAGNESIUM CHLORIDE W/CALCIUM 64MG DELAYED REL TAB PO SCH (09:31)
[2024-12-22] MEDS: POLYETHYLENE (MIRALAX) 17 GM PACK PO SCH (09:32)
[2024-12-22] MEDS: ENOXAPARIN INJ 40 MG/0.4 ML SYR SQ SCH (09:34)
[2024-12-22] MEDS: OPTIRAY 320 125ml IV ONE (10:14)
[2024-12-22 10:23] LABS: Adenovirus F 40/41 PCR Not Detected (NotDetected); Astrovirus PCR Not Detected (NotDetected); Campylobacter PCR Not Detected (NotDetected); Cryptosporidium PCR Not Detected (NotDetected); Cyclospora cayetanensis PCR Not Detected (NotDetected); Entamoeba histolytica PCR Not Detected (NotDetected); Enteroaggregative E.coli(EAEC) Not Detected (NotDetected); Enteropathogenic E.coli (EPEC) Not Detected (NotDetected); Enterotoxigenic E.coli (ETEC) Not Detected (NotDetected); Giardia lamblia PCR Not Detected (NotDetected); Norovirus GI/GII PCR Not Detected (NotDetected); Plesiomonas shigelloides PCR Not Detected (NotDetected); Rotavirus A PCR Not Detected (NotDetected); Salmonella PCR Not Detected (NotDetected); Sapovirus PCR Not Detected (NotDetected); Shiga-like Toxin E.coli (STEC) Not Detected (NotDetected); Shigella/Enteroinvasive E.coli Not Detected (NotDetected); Vibrio cholerae PCR Not Detected (NotDetected); Vibrio species PCR Not Detected (NotDetected); Yersinia enterocolitica PCR Not Detected (NotDetected)
--- NOTE | 2024-12-22 10:44 | CT Scan Report ---
CT angio chest PE protocol CT DOSE: 582.48 mGy.cm HISTORY: 84 years-old Female with PE. Acute shortness of breath TECHNIQUE: Multiple CTA images of the chest were obtained after the intravenous administration of 112 ml Optiray. Coronal and sagittal MIPS were obtained from the axial data set and were submitted for review. All measurements were obtained according to NASCET criteria. A dose lowering technique was u tilized adhering to the principles of ALARA. COMPARISON: Chest radiograph 12/21/2024, CT abdomen and pelvis 03/25/2024 FINDINGS: CTA: Heart is mildly enlarged. Moderate coronary artery calcifications. Left atrial exclusion device. Athe rosclerosis of the thoracic aorta without aneurysm or dissection. Patency of the imaged great vessels . Unremarkable pulmonary artery. CT CHEST: Unremarkable thyroid. 1.6 x 1.4 cm right paratracheal lymph node on image 132 series 4 demonstrates a central fatty hilum and is likely benign. No pneumothorax, pleural effusion, airspace consolidation or pulmonary edema. Linear subsegmental bibasilar atelectasis/scarring. No suspicious pulmonary nodul es or masses identified. No acute upper abdominal abnormality. Soft tissues are within normal limits. No acute fracture. IMPRESSION: 1. Cardiomegaly with moderate coronary artery calcifications. 2. No pulmonary emboli identified. 3. No pleural effusion or airspace consolidation. ACT 112: Negative or not required by law. The above report was generated using voice recognition software. It may contain grammatical, syntax o r spelling errors. Electronically signed by: Denzel Vera M.D. 12/22/2024 10:41 AM
--- NOTE | 2024-12-22 15:29 | Electrocardiogram Report ---
Test Reason : Blood Pressure : */* mmHG Vent. Rate : 87 BPM Atrial Rate : 87 BPM P-R Int : 180 ms QRS Dur : 80 ms QT Int : 348 ms P-R-T Axes : 70 37 39 degrees QTcB Int : 418 ms Normal sinus rhythm Abnormal ECG When compared with ECG of 25-Mar-2024 09:58, MA interval has decreased QRS duration has decreased Borderline criteria for Anterior infarct are no longer Present Inverted T waves have replaced nonspecific T wave abnormality in Lateral leads Confirmed by Srinath Dow ([id number]) on 12/22/2024 3:29:09 PM Referred By: REFERRED SELF Confirmed By: Srinath Dow
[2024-12-22] MEDS: DONEPEZIL HCL 5 MG TAB PO SCH (17:26)
--- NOTE | 2024-12-22 17:35 | Hospitalist Progress Note ---
Date of Service December 22, 2024 Assessment & Plan (1) Acute hypoxemic respiratory failure: Plan Pt is a 84yoF with PMHx significant for nonobstructive CAD, A-fib status post Watchman device, valvular heart disease (severe TR, mild MR), hypertension, hyperlipidemia, TIA, hypothyroidism, prediabetes, dementia who presented with acute hypoxemic respiratory failure. Acute hypoxemic respiratory failure Complicated bronchitis Entero/rhinovirus infection Supportive care Wean oxygen as tolerated Doxycycline, nebs as needed Chronic medical Problems: hx nonobstructive CAD A-fib status post Watchman device valvular heart disease (severe TR, mild MR) hypertension, slightly elevated secondary to illness hyperlipidemia, on statin Rx hx TIA hypothyroidism, euthyroid as of today's TSH prediabetes, hemoglobin A1c 5.5 from 2022 dementia, patient mentating well DVT prophylaxis. Lovenox subcu DNR Dispo: PT/OT recs Admission and Anticipated Discharge Date Admission Date: December 21, 2024 Subjective Pt AAO States she felt better wants to go home Review of Systems Review of Systems: All systems reviewed & are unremarkable except as noted in Subjective Physical Exam Physical Exam: General: Alert, oriented. No acute distress Psych: Appropriate mood and affect HEENT: NC/AT. CV: RRR Resp: Breath sounds clear bilaterally, no increased effort of breathing Abdomen: Soft, nontender Extremities: No edema in lower extremities bilaterally. Results & Data Results & Data Vital Signs (Past 12 Hours) Vital Signs Pulse Resp BP Pulse Ox Pulse Ox Pulse Ox Pulse Ox 12/22/24 15:11 94 96 12/22/24 15:04 73 12/22/24 14:24 97 12/22/24 14:00 78 14 119/60 98 12/22/24 13:00 85 12 137/79 96 12/22/24 12:21 78 19 96 12/22/24 12:13 145/64 H 12/22/24 10:00 144/66 H 12/22/24 09:57 78 17 99 12/22/24 09:00 152/76 H 12/22/24 08:51 75 18 100 12/22/24 08:00 76 18 128/90 99 12/22/24 07:30 145/70 H 12/22/24 07:27 82 20 99 12/22/24 07:05 70 12/22/24 06:00 77 154/63 H 98 Pulse Ox O2 Del Method O2 Del Method O2 Flow Rate O2 Flow Rate O2 Flow Rate O2 Flow Rate 12/22/24 15:11 91 0 0 0 12/22/24 15:04 12/22/24 14:24 Room Air 12/22/24 14:00 12/22/24 13:00 12/22/24 12:21 12/22/24 12:13 12/22/24 10:00 12/22/24 09:57 Nasal Cannula 2 12/22/24 09:00 12/22/24 08:51 Nasal Cannula 2 12/22/24 08:00 Nasal Cannula 2 12/22/24 07:30 12/22/24 07:27 Nasal Cannula 2 12/22/24 07:05 12/22/24 06:00 Nasal Cannula 2 Diagnostic Findings Chest X-Ray 12/21/24 18:09 INDICATION: Cough. TECHNIQUE: Frontal radiograph of the chest. COMPARISON: 03/25/2024. FINDINGS: The cardiomediastinal silhouette and pulmonary vasculature appear within normal limits. Left lower lobe atelectasis/airspace disease. No pleural effusion or pneumothorax. No acute osseous abnormality evident. IMPRESSION: Left lower lobe atelectasis/airspace disease. Electronically signed by Cornelio Ocasio 12-21-2024 6:26 PM Chest CTA 12/22/24 09:55 CT angio chest PE protocol CT DOSE: 582.48 mGy.cm HISTORY: 84 years-old Female with PE. Acute shortness of breath TECHNIQUE: Multiple CTA images of the chest were obtained after the intravenous administration of 112 ml Optiray. Coronal and sagittal MIPS were obtained from the axial data set and were submitted for review. All measurements were obtained according to NASCET criteria. A dose lowering technique was utilized adhering to the principles of ALARA. COMPARISON: Chest radiograph 12/21/2024, CT abdomen and pelvis 03/25/2024 FINDINGS: CTA: Heart is mildly enlarged. Moderate coronary artery calcifications. Left atrial exclusion device. Atherosclerosis of the thoracic aorta without aneurysm or dissection. Patency of the imaged great vessels. Unremarkable pulmonary artery. CT CHEST: Unremarkable thyroid. 1.6 x 1.4 cm right paratracheal lymph node on image 132 series 4 demonstrates a central fatty hilum and is likely benign. No pneumothorax, pleural effusion, airspace consolidation or pulmonary edema. Linear subsegmental bibasilar atelectasis/scarring. No suspicious pulmonary nodules or masses identified. No acute upper abdominal abnormality. Soft tissues are within normal limits. No acute fracture. IMPRESSION: 1. Cardiomegaly with moderate coronary artery calcifications. 2. No pulmonary emboli identified. 3. No pleural effusion or airspace consolidation. ACT 112: Negative or not required by law. The above report was generated using voice recognition software. It may contain grammatical, syntax or spelling errors. Electronically signed by: Denzel Vera M.D. 12/22/2024 10:41 AM
[2024-12-22] MEDS ORDERED: cefTRIAXone SODIUM 2,000 MG/50 ML BAG IV SCH (20:00)
--- NOTE | 2024-12-22 20:09 | Communication Note ---
Date of Service: December 22, 2024 Patient with hemoptysis episode without unusual chest pain complaints as per RN. Some SOB noted. Bloody stools without abdominal pain complaints. Patient thinks that her hemorrhoids acting up as per RN account. AP Hemoptysis, CAP LGIB Hold antiplatelet Rx and anticoagulation Antitussives, and Solu-Medrol 1 dose now Stool cultures, stool C. difficile
[2024-12-22] MEDS: ALBUT/IPRATROP 3MG/0.5MG NEB 3 ML VIAL NEB STA (20:25)
[2024-12-22] MEDS: methylPREDNISolone 125 MG/2 ML VIAL IV STA (20:25)
--- NOTE | 2024-12-22 21:08 | XRay Report ---
Exam(s): XR CXR 1 VIEW EXAM: XR Chest, 1 View CLINICAL HISTORY: sob. TECHNIQUE: Frontal view of the chest. COMPARISON: 12/21/2024. FINDINGS: Heart is normal in size. Slight increase in mild left basilar atelectasis versus infiltrate. No pleural effusion or pneumothorax. Bones are unchanged. IMPRESSION: Slight increase in mild left basilar atelectasis versus infiltrate. Electronically signed by: Lucas Brian M.D. 12/22/24 21:07 PM
[2024-12-22] MEDS: ASPIRIN 81 MG ECTAB PO SCH (21:18)
[2024-12-22 21:25] LABS: Hematocrit (blood only) 32.3 % (37.0-47.0); Hemoglobin 11.1 g/dl (12.0-16.0)
[2024-12-22] MEDS: PRAVASTATIN SOD 40 MG TAB PO SCH (21:25)
[2024-12-22] MEDS: LATANOPROST 0.005% OP SOLN 2.5 ML BTL OPB SCH (22:21)
[2024-12-23 00:39] LABS: Adenovirus F 40/41 PCR Not Detected (NotDetected); Astrovirus PCR Not Detected (NotDetected); Campylobacter PCR Not Detected (NotDetected); Cryptosporidium PCR Not Detected (NotDetected); Cyclospora cayetanensis PCR Not Detected (NotDetected); Entamoeba histolytica PCR Not Detected (NotDetected); Enteroaggregative E.coli(EAEC) Not Detected (NotDetected); Enteropathogenic E.coli (EPEC) Not Detected (NotDetected); Enterotoxigenic E.coli (ETEC) Not Detected (NotDetected); Giardia lamblia PCR Not Detected (NotDetected); Norovirus GI/GII PCR Not Detected (NotDetected); Plesiomonas shigelloides PCR Not Detected (NotDetected); Rotavirus A PCR Not Detected (NotDetected); Salmonella PCR Not Detected (NotDetected); Sapovirus PCR Not Detected (NotDetected); Shiga-like Toxin E.coli (STEC) Not Detected (NotDetected); Shigella/Enteroinvasive E.coli Not Detected (NotDetected); Vibrio cholerae PCR Not Detected (NotDetected); Vibrio species PCR Not Detected (NotDetected); Yersinia enterocolitica PCR Not Detected (NotDetected)
[2024-12-23 10:53] LABS: Hematocrit (blood only) 35.7 % (37.0-47.0); Hemoglobin 12.2 g/dl (12.0-16.0); Mean Corpuscular Hemoglobin 29.9 pg (25.0-34.0); Mean Corpuscular Hgb Conc 34.2 g/dL (32.0-36.0); Mean Corpuscular Volume 87.5 fL (80.0-100.0); Mean Platelet Volume 9.1 fL (9.4-12.4); Platelet Count 262 K/uL (130-400); RDW Standard Deviation 41.8 fL (36.4-46.3); Red Blood Count 4.08 M/uL (4.20-5.40); White Blood Count 5.58 K/ul (4.8-10.8)
[2024-12-23 11:07] LABS: BUN Creatinine Ratio 11.2 (10-20); Calcium 9.1 mg/dl (8.6-10.3); Creatinine Clr Calc Pharmacy 35.8 ml/min; Magnesium 1.7 mg/dl (1.7-2.4); Phosphorus 4.8 mg/dl (2.5-4.9); Potassium 3.8 mmol/L (3.5-5.1)
--- NOTE | 2024-12-23 12:20 | Hospitalist Progress Note ---
Date of Service December 23, 2024 Assessment & Plan (1) Acute hypoxemic respiratory failure: Plan Pt is a 84yoF with PMHx significant for nonobstructive CAD, A-fib status post Watchman device, valvular heart disease (severe TR, mild MR), hypertension, hyperlipidemia, TIA, hypothyroidism, prediabetes, dementia who presented with acute hypoxemic respiratory failure. Acute hypoxemic respiratory failure Complicated bronchitis Entero/rhinovirus infection Supportive care Wean oxygen as tolerated Doxycycline, nebs as needed BRBPR Diarrhea Stool culture negative c diff negative FOBT pending H/H best ever been at 12.2/35 PRN Imodium Continue to monitor Acute Kidney Injury Cr jumped from 0.92 to 1.25 NSS 2 bags Holding home losartan Continue to monitor Chronic medical Problems: hx nonobstructive CAD A-fib status post Watchman device valvular heart disease (severe TR, mild MR) hypertension, slightly elevated secondary to illness hyperlipidemia, on statin Rx hx TIA hypothyroidism, euthyroid as of today's TSH prediabetes, hemoglobin A1c 5.5 from 2022 dementia, patient mentating well DVT prophylaxis. Lovenox subcu DNR Dispo: PT/OT recs Admission and Anticipated Discharge Date Admission Date: December 21, 2024 Subjective Pt AAO States she felt better today Sitting in chair near bedside Per nursing, having BRBPR, diarrhea Review of Systems Review of Systems: All systems reviewed & are unremarkable except as noted in Subjective Physical Exam Physical Exam: General: Alert, oriented. No acute distress Psych: Appropriate mood and affect HEENT: NC/AT. CV: RRR Resp: Breath sounds clear bilaterally, no increased effort of breathing Abdomen: Soft, nontender Extremities: No edema in lower extremities bilaterally. Results & Data Results & Data Vital Signs (Past 12 Hours) Vital Signs Temp Pulse Pulse Resp BP BP Pulse Ox 12/23/24 10:56 36.5 C 76 18 128/73 98 12/23/24 08:00 36.3 C L 83 14 144/77 H 99 12/23/24 07:34 72 12/23/24 04:00 36.5 C 95 H 20 155/82 H 97 O2 Del Method O2 Flow Rate 12/23/24 10:56 Room Air 12/23/24 08:00 Room Air 12/23/24 07:34 12/23/24 04:00 Nasal Cannula 2
[2024-12-23] MEDS ORDERED: LOPERAMIDE HCL 2 MG CAP PO PRN (18:19)
[2024-12-23] MEDS: SODIUM CHLORIDE 0.9% 1,000 ML IV SCH (18:54)
--- NOTE | 2024-12-24 08:20 | Hospitalist Progress Note ---
Date of Service December 24, 2024 Assessment & Plan (1) Acute hypoxemic respiratory failure: Plan Pt is a 84yoF with PMHx significant for nonobstructive CAD, A-fib status post Watchman device, valvular heart disease (severe TR, mild MR), hypertension, hyperlipidemia, TIA, hypothyroidism, prediabetes, dementia who presented with acute hypoxemic respiratory failure. Acute hypoxemic respiratory failure Complicated bronchitis Entero/rhinovirus infection Supportive care Wean oxygen as tolerated Doxycycline, nebs as needed BRBPR Diarrhea Stool culture negative c diff negative FOBT pending H/H best ever been at 12.2/35 PRN Imodium Continue to monitor Acute Kidney Injury Cr jumped from 0.92 to 1.25 NSS 2 bags Holding home losartan Continue to monitor Chronic medical Problems: hx nonobstructive CAD A-fib status post Watchman device valvular heart disease (severe TR, mild MR) hypertension, slightly elevated secondary to illness hyperlipidemia, on statin Rx hx TIA hypothyroidism, euthyroid as of today's TSH prediabetes, hemoglobin A1c 5.5 from 2022 dementia, patient mentating well DVT prophylaxis. Lovenox subcu DNR Dispo: PT/OT recs Admission and Anticipated Discharge Date Admission Date: December 21, 2024 Results & Data Results & Data Vital Signs (Past 12 Hours) Vital Signs Temp Pulse Pulse Resp BP BP Pulse Ox 12/24/24 07:36 71 12/24/24 07:36 36.6 C 70 18 133/74 92 12/24/24 04:22 36.9 C 70 20 129/70 94 12/24/24 00:15 36.8 C 75 20 138/74 92 12/23/24 22:08 79 12/23/24 20:50 36.8 C 78 20 137/69 95 O2 Del Method 12/24/24 07:36 12/24/24 07:36 Room Air 12/24/24 04:22 Room Air 12/24/24 00:15 Room Air 12/23/24 22:08 12/23/24 20:50 Room Air
[2024-12-24] MEDS: BENZONATATE 100 MG CAPSULE PO PRN (08:37)
[2024-12-24 09:45] LABS: Hematocrit (blood only) 31.9 % (37.0-47.0); Hemoglobin 10.9 g/dl (12.0-16.0); Mean Corpuscular Hemoglobin 29.9 pg (25.0-34.0); Mean Corpuscular Hgb Conc 34.2 g/dL (32.0-36.0); Mean Corpuscular Volume 87.4 fL (80.0-100.0); Mean Platelet Volume 9.2 fL (9.4-12.4); Platelet Count 221 K/uL (130-400); RDW Coefficient of Variation 13.2 % (11.5-14.5); RDW Standard Deviation 42.5 fL (36.4-46.3); Red Blood Count 3.65 M/uL (4.20-5.40); White Blood Count 7.02 K/ul (4.8-10.8)
[2024-12-24 10:01] LABS: BUN Creatinine Ratio 18.4 (10-20); Calcium 8.6 mg/dl (8.6-10.3); Creatinine Clr Calc Pharmacy 38.8 ml/min; Potassium 3.6 mmol/L (3.5-5.1)
[2024-12-24 10:16] LABS: Magnesium 1.6 mg/dl (1.7-2.4); Phosphorus 2.9 mg/dl (2.5-4.9)
--- NOTE | 2024-12-24 10:25 | Discharge Summary ---
Discharge Summary Date of Service December 24, 2024 Principal Dx & Hospital Course #1 = Principal Diagnosis (1) Acute hypoxic respiratory failure: (2) Acute bronchitis due to Rhinovirus: Ema Forte is an 84y/o F with PMHx significant for acquired hypothyroidism, HTN, HLD, nonobstructive CAD, paroxysmal atrial fibrillation s/p Watchman device, severe TR, mild MR, TIA, prediabetes, CKD stage IIIb, history of recurrent UTIs, lumbar DDD, generalized osteoarthritis, neuropathic pain, sensorineural hearing loss of both ears and dementia who presented to the ED on 12/22/24 with c/o cough, chest congestion and generalized weakness. She was found to have acute hypoxic respiratory failure 2/2 acute bronchitis ISO rhino- /enterovirus infection. Successfully weaned off supplemental O2. Passed 2-step test; no indication for home O2 requirement. Blood cultures NGTD. Prescription for doxycycline sent to patient's pharmacy to complete full 5-day course. Probiotic use encouraged and patient expressed understanding. (3) RHEA (acute kidney injury): RHEA resolved s/p fluid resuscitation. Cr improved to 1.14 on discharge with baseline Cr around 1.1-1.3 per further outpatient chart review. Resume losartan on discharge. (4) Diarrhea: (5) BRBPR (bright red blood per rectum): Noted by nursing staff on 12/23. Stool PCR and C. diff testing negative. Suspect BRBPR 2/2 hemorrhoids per discussion with patient. Diarrhea and BRBPR seem to be resolving. Hgb stable at 10.9 on discharge with baseline Hgb around 10-12 per outpatient chart review. Continue ASA. (6) Pressure sore on buttocks: Stage II pressure sore on the perianal region noted this admission. Inpatient wound care was consulted. Discharge instructions per wound care: "To perianal skin - clean gently with wipes. Pat dry. Dust with stoma powder, brush off excess. Cover with barrier cream. Reapply as needed to protect area." (7) Hypertension: Resume losartan as per above as well as HCTZ on discharge. Continue amlodipine. Home BP monitoring encouraged. (8) Hyperlipidemia: (9) CAD (coronary artery disease): Continue pravastatin. Can also continue ASA as per above. (10) Neuropathic pain: (11) Generalized osteoarthritis: Chronic, stable. Continue gabapentin. (12) Prediabetes: Hgb A1c 5.5% about 2 years ago. Updated Hgb A1c 5.3% this admission. Other Chronic Medical Conditions: * Hypothyroidism - Euthyroid this admission, continue levothyroxine. * Dementia - At baseline mentation status on discharge, continue donepezil. PCP: Ethel Sanders DO Disposition: Patient is being discharged home in stable condition with close PCP follow-up. Patient seen in collaboration with Dr. Forde. Please see addendum. I spent a total of 50 minutes coordinating, documenting, and providing care for this patient excluding time spent in the performance of separately billed services or time spent by another provider/QHP. This included personally reviewing all current laboratories and imaging studies, medical reconciliation, outpatient chart review and discussion with specialists. This chart was completed in part utilizing Speech Voice Recognition Software. Grammatical errors, random word insertions, pronoun errors, and incomplete sentences are an occasional consequence of this system due to software limitat ions, ambient noise, and hardware issues. Any formal questions or concerns about the content, text, or information contained within the body of this dictation should be directly addressed to the provider for clarification. Notes For Next Care Provider Set to complete doxycycline course for acute complicated bronchitis. Medication Changes From Visit Doxycycline 100mg BID x 5 more doses with next dose being this evening. Admission HPI Per Admitting Provider History obtained from patient, family, and records. Limited history from patient secondary to hearing impairment/dementia Medical history significant for nonobstructive CAD, A-fib status post Watchman device, valvular heart disease (severe TR, mild MR), hypertension, hyperlipidemia, TIA, hypothyroidism, prediabetes, dementia. 2 weeks history of congestion symptoms and junky cough symptoms. Not sure about sick contacts. Denies chest pain, SOB initially. Patient seen at PCPs office 2 days ago. Suspicion for pneumonia secondary to viral illness as per note. Patient prescribed Levaquin later switched to doxycycline due to pharmacy recommendations. Worsening symptoms associated with nausea vomiting diarrhea at home. Lowest O2 sats of 80s documented at the ER. Ceftriaxone administered at the ER. Medical History as above Surgical History : Knee surgery, appendectomy, TRNA Family History : Dementia, heart disease Personal/Social history : Non-smoker, occasional EtOH intake, retired store employee Admission Exam Per Admitting Provider GENERAL: Comfortable, pleasant, no respiratory distress SKIN: Normal color, warm HEENT: Oden palpebral conjunctivae, no ptosis, dry buccal mucosa, nasal cannula in place NECK : Supple, no tenderness CHEST : Decreased breath sounds, no tenderness HEART : RRR, no obvious murmurs ABDOMEN: Some distention, nontender EXTREMITIES : No LE swelling/tenderness, palpable pulses, no other conspicuous deformities noted NEUROLOGIC : Demented, no facial asymmetry, hard of hearing, no other gross focality Discharge Exam General: Elderly F, NAD, sitting up in bed, very pleasant, conversing appropriately. A+Ox3. HEENT: Normocephalic, atraumatic. Conjunctivae normal. External ear and nose normal, oropharynx normal. Respiratory: Normal respiratory effort, lung sounds diminished throughout. No wheeze/rhonchi. On RA. Cardiovascular: Regular rate/rhythm, normal peripheral pulses, no BLE edema. Abdomen/GI: Normal bowel sounds, soft, nondistended, nontender to palpation in all quadrants. Extremities/Musculoskeletal: No cyanosis or clubbing, extremities motor strength intact, moves all extremities. Updated Medication List Medication Instructions Recorded Confirmed Type amlodipine 5 mg tablet 7.5 mg PO QAM #0 tabs 05/27/18 12/21/24 History latanoprost 0.005 % eye drops 1 drp OPB HS ##0 05/27/18 12/21/24 History (Xalatan) levothyroxine 25 mcg tablet 25 mcg PO QAM #0 tabs 05/27/18 12/21/24 History magnesium chloride 64 mg 64 mg PO BID #0 tabs 05/27/18 12/21/24 History (magnesium chloride) tablet,delayed release (Mag 64) multivitamin 1 tab PO QAM #0 tabs 05/27/18 12/21/24 History pravastatin 40 mg tablet 40 mg PO QPM ##0 05/27/18 12/21/24 History propafenone 150 mg tablet 150 mg PO Q8 ##0 05/27/18 12/21/24 History aspirin 81 mg tablet,delayed 81 mg PO PM 01/18/21 12/21/24 History release cholecalciferol (vitamin D3) 125 125 mcg PO DAILY 12/21/24 12/21/24 History mcg (5,000 unit) tablet (Vitamin D3) donepezil 5 mg tablet 5 mg PO QAM 12/21/24 12/21/24 History gabapentin 300 mg capsule 300 mg PO TID 12/21/24 12/21/24 History hydrochlorothiazide 12.5 mg capsule 12.5 mg PO QAM 12/21/24 12/21/24 History losartan 25 mg tablet 25 mg PO DAILY 12/21/24 12/21/24 History ondansetron HCl 4 mg tablet 4 mg PO Q8H PRN Nausea 12/21/24 12/21/24 History polyethylene glycol 3350 17 17 g PO DAILY 12/21/24 12/21/24 History gram/dose oral powder doxycycline hyclate 100 mg capsule 100 mg PO BID #5 caps 12/24/24 Rx Hospital Stay Data Consultations 12/21/24 20:00 ED Decision to Admit Stat Diagnostic Imagining Performed 12/22/24 09:55 CT angio chest PE protocol Urgent Discharge Instructions Given to Patient (Per Discharging Provider) mariella Boo were admitted to [facility] as a result of acute respiratory failure secondary to acute bronchitis in the setting of rhinovirus infection. You initially required supplemental oxygen use but have been successfully weaned OFF of supplemental oxygen on discharge. You were started on the following oral antibiotic: doxycycline. This antibiotic is used to treat your acute bronchitis. A prescription for doxycycline has been sent to your pharmacy at [facility] in [place]. You have 5 more doses of doxycycline to take - beginning with the NEXT DOSE starting TONIGHT! Please take this antibiotic as prescribed and in its entirety! It is encouraged that you take a probiotic while on this antibiotic to prevent GI upset like we had previously discussed. Probiotics can be obtained from the pharmacy without a prescription. Continue to monitor the pressure sore on your buttocks: 1. Keep the Wound Clean Wash hands thoroughly with soap and water before and after touching the wound or dressing. Clean the wound with a gentle cleanser (unless otherwise instructed) to remove dirt and debris. Avoid using harsh products like hydrogen peroxide or alcohol, as they can damage healthy tissue and delay healing. 2. Keep the Wound Moist Moist wound healing is essential for proper healing. Use a suitable moisturizing dressing recommended by your healthcare provider. Change the dressing as instructed, generally every 2-3 days or whenever it becomes wet or dirty. 3. Protect the Wound from Infection Monitor for signs of infection, such as increased redness, swelling, warmth, or foul odor. Do not touch the wound with unclean hands. If you need to touch it, make sure your hands are clean or wear gloves. 4. Pressure Relief Reposition regularly (every 2 hours if you are in bed, or more often if you are in a wheelchair) to relieve pressure on the wound. Use specialized cushions, mattresses, or pads designed to reduce pressure on the affected area. PCP Follow-Up Appointment Date & Time: 12/30/2024 @ 1:00PM Provider: Ethel Costello MD Location: [facility] Please attend your PCP follow-up appointment as scheduled! Seek medical attention if you have: * temperature above 101F * chest pain or trouble breathing * abdominal pain, nausea, vomiting * diarrhea, dark stools or bloody stools * any unanswered questions or concerns Call 911 if symptoms are severe. Please take good care of yourself! It has been a pleasure taking care of you. If you have any questions regarding your recent hospitalization please contact [facility] and request [facility] Hospitalist @ [phone]. Total Time Total Time Spent Total Time Spent (In Minutes): 50 Supervising Physician Co-Signing Physician Notes Patient seen and examined independently. She reports that she is feeling much better She is at room air; not in any distress Two-step oxygen evaluation was done; did not require supplemental oxygen I have reviewed the advanced practitioner's documentation, and I agree with, and take responsibility for the plan of care I spent a total of 20 minutes coordinating, documenting, and providing care for this patient excluding time spent in the performance of separately billed services. All of the aforementioned completed while collaborating with the as signed advanced practitioner for a full treatment plan
[2024-12-24 11:07] LABS: Estimated Average Glucose 105 mg/dl; Hemoglobin A1C 5.3 % (4.5-5.6)
[2024-12-24 11:42] VITALS: RESP 17; TEMP 97.7; O2SAT 91
[2024-12-24 12:09] VITALS: BP 129/70; PULSE 76
== END 2024-12-24 13:17 | disposition home or self-care (01) | DRG 202 ==
LOC: ED 17:40 → SUATTDRO 23:51 → EDINP 23:51 → 2W 12-22 03:06

== ENCOUNTER 2025-05-11 14:02 | Observation (INO) ==
[2025-05-11 14:37] LABS: Appearance Urine Clear (Clear); Bacteria Urine Automated 4+ (None Seen); Cast Urine Automated 0-2 /lpf (0-2); Epithelial Cell Urine Auto 0-2 /hpf (0-2); Glucose Urine UA Negative (Negative); WBC Urine Automated 21-50 /hpf (0-5)
--- NOTE | 2025-05-11 14:39 | Emergency Department Note ---
Impression & Plan Complicated UTI (urinary tract infection), Nausea & vomiting, Change in mental status ED Provider Note NAME: DIONI RAO AGE: 84 SEX: F : 1940 ARRIVES VIA: Ambulance INFORMANT: Patient ED PROVIDER(S): Lobo Arroyo MD CHIEF COMPLAINT: Vomiting, confusion PLAN: Disposition: Admit MEDICAL DECISION MAKING: The patient is a pleasant 84-year-old woman with a past medical history of hypothyroidism, PEETR on CPAP, hypertension, hyperlipidemia who presents to the emergency department via EMS and, by family for nausea and vomiting and confusion that began abruptly this morning. Per family members patient was noted to be awake with her eyes open but did not respond to questions prior to arrival. Patient is now interacting at her baseline. They deny any fevers. Denies any cough, congestion, chest pain or shortness of breath. On evaluation the patient no distress, with temperature of 37.9 and blood pressure 150s/70s and vital signs otherwise stable. She appears clinically dry. She is moving all extremities equally without focal deficit. Lungs are clear. Abdomen is nontender. EKG demonstrates new left bundle branch block without Sgarbossa criteria when compared to prior EKG in November of this year. CXR negative for acute cardiopulmonary process per my personal preliminary review/interpretation. WBC 10.9 K with neutrophilia but no left shift. H/H similar to prior. Platelets within normal limits. Chemistry without metabolic acidosis. Creatinine 1.2 slightly increased from recent though within prior range of values. Initial troponin 24.2, similar to prior nonspecific. UA demonstrates positive nitrites, WBCs and RBCs and 4+ bacteria. CT of the abdomen pelvis demonstrates suggestion of enteritis. Pulmonary nodules also described. CT of the head negative for acute abnormalities per my preliminary independent interpretation. Patient was treated with IV fluid hydration, IV famotidine and Zofran in addition to IV ceftriaxone for urinary infection. Blood cultures obtained prior to antibiotic administration. Patient and family do plan for admission for further management. Case was discussed with Jani Macedo, with Dr. Patrizia Gunter hospitalist who will evaluate the patient for admission. Further management per admitting team. Triage Nursing notes reviewed and agree them. Prior/external medical records reviewed Vital Signs: reviewed Differential diagnosis: Gastroenteritis, food borne illness, infections, appendicitis, diverticulitis, inflammatory bowel disease, obstruction, GI bleed, biliary pathology, volvulus, as well as other pathologies. ER treatment provided: See below. Diagnostics interpreted by me: ECG: Normal sinus rhythm, 84 bpm, no ectopy, left bundle branch block, no Sgarbossa criteria, QTc 522, QRS 162. Cardiac Monitoring: An order for continuous cardiac monitoring was placed and demonstrated Normal sinus rhythm, 84 bpm, no ectopy. Laboratory studies: See below Imaging studies: See below Consultation(s): Jani Macedo, with Dr. Patrizia Gunter hospitalist HPI: Per MDM. ROS: See above HPI for pertinent positives & negatives. A total of 10 systems reviewed and were otherwise negative. VITALS:See Below PHYSICAL EXAMINATION: GENERAL: Awake, alert, fatigued-appearing, in no distress HENT: Normocephalic, atraumatic. Oropharynx with dry mucous membranes and otherwise unremarkable. EYES: Normal conjunctiva. Sclera non-icteric. NECK: Supple. No nuchal rigidity. FROM. No JVD. RESPIRATORY: Clear to auscultation. CARDIAC: Regular rate, normal rhythm. Extremities warm and well perfused. Pulses equal. ABDOMEN: Soft, non-distended. No tenderness to palpation. No rebound or guarding. No masses. MUSCULOSKELETAL: Chest examination reveals no tenderness. The back is symmetrical on inspection without obvious abnormality. There is no CVA tenderness to palpation. No joint edema. LOWER EXTREMITIES: Calves are equal size bilaterally and non-tender. No edema. No discoloration. NEURO: Normal sensorium. No sensory or motor deficits noted. SKIN: No rash or jaundice noted. Lobo Arroyo MD Past Med/Surg History Problem List (Updated 05/12/25 @ 03:14 by Lobo Arroyo MD) Change in mental status (Acute) Nausea & vomiting (Acute) Hypoxia Elevated troponin Hypomagnesemia Sepsis secondary to UTI Metabolic encephalopathy Pressure sore on buttocks Diarrhea BRBPR (bright red blood per rectum) RHEA (acute kidney injury) Acute bronchitis due to Rhinovirus Acute hypoxic respiratory failure Acute hypoxemic respiratory failure LLL pneumonia (Acute) Nausea (Acute) Rhinovirus infection (Acute) Neuropathic pain Paroxysmal atrial fibrillation CAD (coronary artery disease) History of TIA (transient ischemic attack) Generalized osteoarthritis Generalized weakness (Acute) Complicated UTI (urinary tract infection) (Acute) COVID-19 (Acute) GERD (gastroesophageal reflux disease) Hypothyroidism Glaucoma Hypertension Hyperlipidemia Medical History Paroxysmal atrial fibrillation hx, cardioversion in 1999, no issue since per ; f/u [facility] ej cardio Hx of kidney disease taken off of diuretic and f/u with [facility] nephrology specialist "told them nothing to be concerned with right now" Acute hypoxemic respiratory failure hx, 11/2024, dx with rhinovirus, resolved per pt and History of dementia early onset per , dx 2023 Hx of osteoarthritis Hx of gastroesophageal reflux (GERD) History of hypothyroidism History of hypertension Hx of hyperlipidemia Hx-TIA (transient ischemic attack) "didn't even know she had it," ~2019; no residual effects History of COVID-19 2023, no residual effects History of tremor Prediabetes pt and denies Sensorineural hearing loss (SNHL) of both ears Obesity (BMI 30.0-34.9) Hiatal hernia History of tachycardia hx cardioversion in 1999; f/u lina, [facility] ej cardio History of pneumonia no recent issues Degenerative disc disease Chronic back pain Hearing deficit bilat h/a Peripheral neuropathy L hand Surgical History H/O left cataract extraction History of total left knee replacement (2017) left History of cardiac cath Diagnostic p/t cardioversion, 1999 History of cardioversion 1999, [facility] History of bilateral tubal ligation History of carpal tunnel release right History of esophagogastroduodenoscopy (EGD) History of colonoscopy History of appendectomy Family History Unknown Family hx of colon cancer Father Hearing loss Mother Hypertension Stroke Heart disease Sister Colorectal cancer Brother Cancer unknown type Heart disease Other No family history of adverse response to anesthesia No family history of bleeding disorder Social History Smoking Status: Never smoker Second Hand Exposure: No; Do You Dip or Chew Tobacco: No; Hx Alcohol Use: No Hx Substance Use: No Preferred Language: Urdu Communication Ability: Effective Visual Impairment: Partially Limited Real Property Evaluator Required: No Beliefs That Will Affect Care: None marital status: Current Living Situation: Spouse current occupational status: retired Feels Safe at Home: Yes Safety Concerns: Feels Safe At This Time Assistive Devices: Denture - Upper, Hearing Aid - Bilateral and Walker Allergies Allergies Allergy/AdvReac Type Severity Reaction Status Date / Time brimonidine Allergy Severe RED AND Verified 05/08/25 09:53 IRRITATED EYES carboxymethylcellulose sodium Allergy Severe RED AND Verified 05/08/25 09:53 [From Refresh Plus] IRRITATED EYES cephalexin Allergy Unknown INTERACTS Verified 05/08/25 09:53 WITH A MEDICATION PT TAKES levofloxacin [From Levaquin] Allergy Unknown Unknown Verified 05/08/25 09:53 Home Meds Home Medications Medication Instructions Recorded Confirmed amlodipine 5 mg tablet 2.5 mg PO QAM #0 tabs 05/27/18 05/11/25 latanoprost 0.005 % eye drops 1 drp OPB HS ##0 05/27/18 05/11/25 (Xalatan) levothyroxine 25 mcg tablet 25 mcg PO QAM #0 tabs 05/27/18 05/11/25 magnesium chloride 64 mg 64 mg PO QAM #0 tabs 05/27/18 05/11/25 (magnesium chloride) tablet,delayed release (Mag 64) multivitamin 1 tab PO QAM #0 tabs 05/27/18 05/11/25 pravastatin 40 mg tablet 40 mg PO HS ##0 05/27/18 05/11/25 propafenone 150 mg tablet 150 mg PO TID ##0 05/27/18 05/11/25 aspirin 81 mg tablet,delayed 81 mg PO QPM 01/18/21 05/11/25 release donepezil 5 mg tablet 5 mg PO QAM 12/21/24 05/11/25 gabapentin 300 mg capsule 300 mg PO BID 12/21/24 05/11/25 losartan 25 mg tablet 25 mg PO QAM 12/21/24 05/11/25 ondansetron HCl 4 mg tablet 4 mg PO Q8H PRN Nausea 12/21/24 05/11/25 cholecalciferol (vitamin D3) 50 50 mcg PO DAILY 04/15/25 05/11/25 mcg (2,000 unit) capsule (Vitamin D3) meclizine 25 mg tablet 25 mg PO DAILY PRN Vertigo 04/15/25 05/08/25 Results & Data (ED) Vital Signs Vital Signs - 24 hr 05/11/25 13:52 05/11/25 14:20 05/11/25 14:37 Temperature 37.9 C H Temperature Source Oral Pulse Rate 85 84 Pulse Rate [Apical] Respiratory Rate 18 Respiratory Effort / Characteristics Non-Labored Spontaneous Respiratory Depth Normal Respiratory Pattern Regular Blood Pressure 150/74 H Blood Pressure [Right Arm] Blood Pressure Mean 99 Blood Pressure Mean [Right Arm] Pulse Oximetry 95 95 Oxygen Delivery Method Room Air Room Air Oxygen Flow Rate Sepsis Recent Fever Within 48 Hours Yes Sepsis New/Unexplained Change in Mental Status N/A Sepsis Action Taken by Nursing No Action Required Oxygen Flow Rate - Titration Pulse Oximetry Post Tiitration 05/11/25 17:45 05/11/25 18:00 05/11/25 18:13 Temperature 38.2 C H Temperature Source Oral Pulse Rate 93 H Pulse Rate [Apical] 95 H Respiratory Rate 18 Respiratory Effort / Characteristics Non-Labored Spontaneous Respiratory Depth Normal Respiratory Pattern Blood Pressure Blood Pressure [Right Arm] 129/62 Blood Pressure Mean Blood Pressure Mean [Right Arm] 84 Pulse Oximetry 88 L 95 Oxygen Delivery Method Room Air Nasal Cannula Nasal Cannula Oxygen Flow Rate 0 2 Sepsis Recent Fever Within 48 Hours Sepsis New/Unexplained Change in Mental Status Sepsis Action Taken by Nursing Oxygen Flow Rate - Titration 2 Pulse Oximetry Post Tiitration 95 05/11/25 19:00 Temperature 37.3 C Temperature Source Oral Pulse Rate Pulse Rate [Apical] 87 Respiratory Rate 18 Respiratory Effort / Characteristics Non-Labored Spontaneous Respiratory Depth Normal Respiratory Pattern Regular Blood Pressure Blood Pressure [Right Arm] 114/63 Blood Pressure Mean Blood Pressure Mean [Right Arm] 80 Pulse Oximetry 95 Oxygen Delivery Method Nasal Cannula Oxygen Flow Rate 2 Sepsis Recent Fever Within 48 Hours Sepsis New/Unexplained Change in Mental Status Sepsis Action Taken by Nursing Oxygen Flow Rate - Titration Pulse Oximetry Post Tiitration Laboratory Data Attestation: I reviewed the patient's lab results. 05/11/25 14:35 05/11/25 14:35 Lab Results 05/11/25 05/11/25 05/11/25 Range/Units 14:24 14:35 15:50 WBC 10.93 H (4.8-10.8) K/ul RBC 3.93 L (4.20-5.40) M/uL Hgb 11.4 L (12.0-16.0) g/dl Hct 33.5 L (37.0-47.0) % MCV 85.2 (80.0-100.0) fL MCH 29.0 (25.0-34.0) pg MCHC 34.0 (32.0-36.0) g/dL RDW Std Deviation 41.4 (36.4-46.3) fL RDW Coeff of Dona 13.2 (11.5-14.5) % Plt Count 155 (130-400) K/uL MPV 10.0 (9.4-12.4) fL Immature Gran % (Auto) 0.4 % Neut % (Auto) 81.3 % Lymph % (Auto) 7.7 % [place] % (Auto) 10.2 % Eos % (Auto) 0.0 % Baso % (Auto) 0.4 % Neut # (Auto) 8.90 H (1.40-6.50) K/uL Lymph # (Auto) 0.84 L (1.20-3.40) K/uL [place] # (Auto) 1.11 H (0.11-0.59) K/uL Eos # (Auto) 0.00 (0.00-0.50) K/uL Baso # (Auto) 0.04 (0.00-0.20) K/uL Immature Gran # (Auto) 0.04 (0.01-0.20) K/uL PT 11.1 (9.0-12.0) Seconds INR 1.0 (0.9-1.1) Sodium 139 (136-145) mmol/L Potassium 4.3 (3.5-5.1) mmol/L Chloride 108 H (98-107) mmol/L Carbon Dioxide 23 (21-32) mmol/L Anion Gap 8 (3-11) BUN 24 H (6-23) mg/dl Creatinine 1.24 H (0.6-1.2) mg/dl Est Cr Clr Drug Dosing 34.3 ml/min eGFR 43.18 BUN/Creatinine Ratio 19.4 (10-20) Glucose 102 H (70-99(Fasting)) mg/dl Lactate 1.2 (0.4-2.0) mmol/L Calcium 9.1 (8.6-10.3) mg/dl Phosphorus 3.3 (2.5-4.9) mg/dl Magnesium 1.6 L (1.7-2.4) mg/dl Total Bilirubin 0.8 (0.2-1.0) mg/dl Direct Bilirubin 0.2 (0-0.2) mg/dl AST 17 (13-39) U/L ALT 10 (7-52) U/L Alkaline Phosphatase 91 (34-104) U/L Troponin I High Sens 24.2 H (0-14) pg/ml Total Protein 7.0 (6.0-8.3) gm/dl Albumin 3.6 (3.4-5.0) gm/dl Globulin 3.4 (2.5-4.0) gm/dl Albumin/Globulin Ratio 1.1 (0.9-2) Lipase 20 (11-82) U/L Procalcitonin 1.17 H (0-0.5) ng/ml Urine Color Yellow Urine Appearance Clear (Clear) Urine pH 6.0 (4.5-7.5) Ur Specific [place] 1.013 (1.000-1.030) Urine Protein 1+ H (Negative) Urine Glucose (UA) Negative (Negative) Urine Ketones Negative (Negative) Urine Blood 1+ H (Negative) Urine Nitrite Positive A (Negative) Urine Bilirubin Negative (Negative) Urine Urobilinogen Negative (Negative) Ur Leukocyte Esterase 2+ H (Negative) Urine WBC (Auto) 21-50 H (0-5) /hpf Urine RBC (Auto) 3-5 H (0-2) /hpf U Hyaline Cast (Auto) 0-2 (0-2) /lpf U Epithel Cells (Auto) 0-2 (0-2) /hpf Urine Bacteria (Auto) 4+ H (None Seen) Urine Comment 05/11/25 Range/Units 17:26 WBC (4.8-10.8) K/ul RBC (4.20-5.40) M/uL Hgb (12.0-16.0) g/dl Hct (37.0-47.0) % MCV (80.0-100.0) fL MCH (25.0-34.0) pg MCHC (32.0-36.0) g/dL RDW Std Deviation (36.4-46.3) fL RDW Coeff of Dona (11.5-14.5) % Plt Count (130-400) K/uL MPV (9.4-12.4) fL Immature Gran % (Auto) % Neut % (Auto) % Lymph % (Auto) % [place] % (Auto) % Eos % (Auto) % Baso % (Auto) % Neut # (Auto) (1.40-6.50) K/uL Lymph # (Auto) (1.20-3.40) K/uL [place] # (Auto) (0.11-0.59) K/uL Eos # (Auto) (0.00-0.50) K/uL Baso # (Auto) (0.00-0.20) K/uL Immature Gran # (Auto) (0.01-0.20) K/uL PT (9.0-12.0) Seconds INR (0.9-1.1) Sodium (136-145) mmol/L Potassium (3.5-5.1) mmol/L Chloride (98-107) mmol/L Carbon Dioxide (21-32) mmol/L Anion Gap (3-11) BUN (6-23) mg/dl Creatinine (0.6-1.2) mg/dl Est Cr Clr Drug Dosing ml/min eGFR BUN/Creatinine Ratio (10-20) Glucose (70-99(Fasting)) mg/dl Lactate (0.4-2.0) mmol/L Calcium (8.6-10.3) mg/dl Phosphorus (2.5-4.9) mg/dl Magnesium (1.7-2.4) mg/dl Total Bilirubin (0.2-1.0) mg/dl Direct Bilirubin (0-0.2) mg/dl AST (13-39) U/L ALT (7-52) U/L Alkaline Phosphatase (34-104) U/L Troponin I High Sens 111.6 H* D (0-14) pg/ml Total Protein (6.0-8.3) gm/dl Albumin (3.4-5.0) gm/dl Globulin (2.5-4.0) gm/dl Albumin/Globulin Ratio (0.9-2) Lipase (11-82) U/L Procalcitonin (0-0.5) ng/ml Urine Color Urine Appearance (Clear) Urine pH (4.5-7.5) Ur Specific [place] (1.000-1.030) Urine Protein (Negative) Urine Glucose (UA) (Negative) Urine Ketones (Negative) Urine Blood (Negative) Urine Nitrite (Negative) Urine Bilirubin (Negative) Urine Urobilinogen (Negative) Ur Leukocyte Esterase (Negative) Urine WBC (Auto) (0-5) /hpf Urine RBC (Auto) (0-2) /hpf U Hyaline Cast (Auto) (0-2) /lpf U Epithel Cells (Auto) (0-2) /hpf Urine Bacteria (Auto) (None Seen) Urine Comment Administered Medications Aspirin (Aspirin 81 Mg Ectab) 81 mg PO QPM KAROLINE Stop: 06/10/25 20:59 Last Admin: 05/11/25 22:36 Dose: 81 mg Documented By: DAVID Gabapentin (Gabapentin 300 Mg Cap) 300 mg PO BID KAROLINE Stop: 06/10/25 20:59 Last Admin: 05/11/25 22:36 Dose: 300 mg Documented By: DAVID Cefepime HCl (Maxipime 2000mg) 2,000 mg in 20 mls @ 5 mls/min IV Q12H [facility]; Protocol Stop: 05/16/25 21:59 Last Admin: 05/11/25 22:37 Dose: 5 mls/min Documented By: DAVID Sodium Chloride (Nss) 1,000 mls @ 80 mls/hr IV .[id number] [facility] Stop: 05/14/25 22:15 Last Admin: 05/11/25 22:37 Dose: 80 mls/hr Documented By: DAVID Latanoprost (Latanoprost 0.005% Op Soln 2.5 Ml Btl) 1 drops OPB HS KAROLINE Stop: 06/10/25 20:59 Last Admin: 05/11/25 22:36 Dose: 1 drops Documented By: DAVID Miscellaneous (Prednisolone/Moxifloxacin/Bromfenac Oph - Order Awaiting Action) 1 each N/A QS [facility] Stop: 06/11/25 00:00 Last Admin: 05/11/25 23:01 Dose: Not Given Documented By: DAVID Nystatin (Nystatin Susp 500,000 U/5 Ml Udc) 5 ml PO QID KAROLINE Stop: 05/21/25 20:59 Last Admin: 05/11/25 22:35 Dose: 5 ml Documented By: DAVID Pravastatin Sodium (Pravastatin Sod 40 Mg Tab) 40 mg PO HS KAROLINE Stop: 06/10/25 20:59 Last Admin: 05/11/25 22:36 Dose: 40 mg Documented By: DAVID Propafenone HCl (Propafenone Hcl 150 Mg Tablet) 150 mg PO TID KAROLINE Stop: 06/10/25 20:59 Last Admin: 05/11/25 22:35 Dose: 150 mg Documented By: DAVID Discontinued Medications Famotidine (Pepcid 20mg Iv Push) 20 mg in 5 mls @ 2.5 mls/min IV NOW STA Stop: 05/11/25 14:22 Last Admin: 05/11/25 15:34 Dose: 2.5 mls/min Documented By: JELENA Sodium Chloride (Nss) 500 mls @ 999 mls/hr IV .Q31M ONE Stop: 05/11/25 14:52 Last Infusion: 05/11/25 16:04 Dose: Infused Documented By: Admin: 05/11/25 15:33 Dose: 999 mls/hr Documented By: JELENA Ceftriaxone Sodium (Rocephin) 2,000 mg in 50 mls @ 100 mls/hr IV NOW STA Stop: 05/11/25 15:19 Last Infusion: 05/11/25 16:49 Dose: Infused Documented By: Admin: 05/11/25 16:19 Dose: 100 mls/hr Documented By: JELENA Acetaminophen (Ofirmev) 1,000 mg in 100 mls @ 400 mls/hr IV NOW STA Stop: 05/11/25 16:47 Last Infusion: 05/11/25 17:32 Dose: Infused Documented By: Admin: 05/11/25 17:17 Dose: 400 mls/hr Documented By: JELENA Magnesium Sulfate/Dextrose (Magnesium Sulfate / D5w) 1 gm in 100 mls @ 50 mls/hr IV ONE ONE Stop: 05/11/25 21:00 Last Infusion: 05/11/25 22:31 Dose: Infused Documented By: Admin: 05/11/25 19:36 Dose: 50 mls/hr Documented By: NMOAN Ioversol (Optiray 320 100ml) 90 ml IV ONCE ONE Stop: 05/11/25 17:00 Last Admin: 05/11/25 17:00 Dose: 90 ml Documented By: ARI Ondansetron HCl (Ondansetron Inj 2 Mg/Ml 2 Ml Vial) 4 mg IV NOW STA Stop: 05/11/25 14:22 Last Admin: 05/11/25 15:35 Dose: 4 mg Documented By: [facility] Imaging Data Radiologist's Impression: Abdomen/Pelvis CT 05/11/25 14:48 CT ABDOMEN and PELVIS with INTRAVENOUS CONTRAST HISTORY: Abdominal pain TECHNIQUE: CT abdomen and pelvis with contrast. IV CONTRAST: 100 mL of OMNIPAQUE 300 ENTERIC CONTRAST: Not Given COMPARISON: CT abdomen pelvis March 25, 2024 FINDINGS: LOWER CHEST: Unchanged cardiomegaly. Coronary and valvular calcifications. Left atrial appendage closure device. 3 mm nodular density in the right lung base (series 8, image 6). LIVER: No focal lesion identified. GALLBLADDER/BILIARY: Unremarkable gallbladder. No abnormal biliary dilatation. SPLEEN: Unremarkable. PANCREAS: Unremarkable. ADRENALS: Unremarkable. KIDNEYS: Atrophic kidneys with renal scarring. Tiny cortical cysts. No stones or hydronephrosis identified. PERITONEUM/RETROPERITONEUM. No lymphadenopathy by size criteria. No aortic aneurysm. Moderate atherosclerosis with stenoses at the origins of the celiac trunk, the SMA, the renal arteries and the DANY. GASTROINTESTINAL: No obstruction. Colonic diverticulosis without evidence of diverticulitis. Multiple loops of small bowel demonstrate mild inflammatory changes with wall thickening. Small hiatal hernia. REPRODUCTIVE: Calcified uterine fibroids. URINARY BLADDER: Unremarkable. ABDOMINAL WALL: No significant hernia identified. BONES: No acute findings. Unchanged lucent lesion in the L3 vertebral body, probably an intraosseous hemangioma IMPRESSION: Mild enteritis is suggested. The etiology is nonspecific and may be infectious/inflammatory although ischemic etiology is not excluded with multifocal stenoses of the mesenteric arterial vasculature. 3 mm nodular density in the right lung base (series 8, image 6). Follow-up thoracic CT may be advised for reassessment in 3 months Electronically signed by Ar Martins 05-11-2025 6:17 PM Discharge Plan Visit Data Chief Complaint: Vomiting Stated Complaint: NAUSEA, VOMITING, WEAKNESS, PERIOD OF APHASIA ED Provider: Lobo Arroyo Discharge Problem: Complicated UTI (urinary tract infection), Nausea & vomiting, Change in mental status Patient Disposition: Admitted As Inpatient Condition: Fair Discharge Instructions Interventions: ED Discharge Assessment Last Done: 05/11/25 21:10 Discharge Problem: Nausea & vomiting Qualifiers: Vomiting type: unspecified Qualified Code(s): R11.2 - Nausea with vomiting, unspecified Change in mental status Qualifiers: Altered mental status type: unspecified Qualified Code(s): R41.82 - Altered mental status, unspecified
--- NOTE | 2025-05-11 14:43 | XRay Report ---
XR chest 1V portable CLINICAL HISTORY: Chest pain, nonspecific COMPARISON STUDY: 12/22/2024 FINDINGS: Heart size and pulmonary vasculature are normal. No consolidation or pleural effusion. No p neumothorax. IMPRESSION: No acute findings. ACT 112: Negative or not required by law. Electronically signed by: Melvin Nicole M.D. 05/11/2025 2:42 PM
[2025-05-11 15:11] LABS: Alanine Aminotransferase 10.0 U/L (7-52); Albumin Globulin Ratio 1.1 (0.9-2); Alkaline Phosphatase 91.0 U/L (34-104); Anion Gap 8.0 (3-11); Bilirubin,Total 0.8 mg/dl (0.2-1.0); Blood Urea Nitrogen 24.0 mg/dl (6-23); Calcium 9.1 mg/dl (8.6-10.3); Carbon Dioxide 23.0 mmol/L (21-32); Chloride 108.0 mmol/L (98-107); Creatinine Clr Calc Pharmacy 34.3 ml/min; Globulin 3.4 gm/dl (2.5-4.0); Glucose 102.0 mg/dl (70-99(Fasting)); Lipase 20.0 U/L (11-82); Magnesium 1.6 mg/dl (1.7-2.4); Potassium 4.3 mmol/L (3.5-5.1); Sodium 139.0 mmol/L (136-145); Total Protein 7.0 gm/dl (6.0-8.3)
[2025-05-11 15:12] LABS: Hematocrit (blood only) 33.5 % (37.0-47.0); Hemoglobin 11.4 g/dl (12.0-16.0); Immature Granulocytes # (auto) 0.04 K/uL (0.01-0.20); Immature Granulocytes % (auto) 0.4 %; Mean Corpuscular Hemoglobin 29.0 pg (25.0-34.0); Mean Corpuscular Volume 85.2 fL (80.0-100.0); Platelet Count 155 K/uL (130-400); RDW Standard Deviation 41.4 fL (36.4-46.3); Red Blood Count 3.93 M/uL (4.20-5.40); White Blood Count 10.93 K/ul (4.8-10.8)
[2025-05-11] MEDS: SODIUM CHLORIDE 0.9% 500 ML IV ONE (15:33)
[2025-05-11] MEDS: FAMOTIDINE 20MG IV PUSH 20 MG/5 ML SYR IV STA (15:34)
[2025-05-11] MEDS: ONDANSETRON INJ 2 MG/ML 2 ML VIAL IV STA (15:35)
[2025-05-11 15:36] LABS: INR 1.0 (0.9-1.1); Prothrombin Time 11.1 Seconds (9.0-12.0)
[2025-05-11] MEDS: cefTRIAXone SODIUM 2,000 MG/50 ML BAG IV STA (16:19)
[2025-05-11] MEDS: OPTIRAY 320 100ml IV ONE (17:00)
[2025-05-11] MEDS: ACETAMINOPHEN 1,000 MG/100 ML VIAL IV STA (17:17)
--- NOTE | 2025-05-11 17:40 | History & Physical Report ---
Date of Service May 11, 2025 Assessment & Plan (1) Metabolic encephalopathy: Plan: Patient is a 84 year old F with a past medical history of PAF s/p Watchman, TIA (2018), Tachycardia s/p cardioversion in 1999, CAD, HTN, CKD Stg III, dementia, hypothyroidism, prediabetes, recurrent UTI w/ history Klebsiella, presenting with nausea, vomiting, confusion. Symptoms began this morning with episode of vomiting followed by confusion, per family report patient was awake with no LOC, but not responding to questions and seemed not at baseline. Patient has dementia. Arrived here via EMS. Possible foul smelling urine at home. Denies urinary symptoms. Metabolic encephalopathy 2/2 sepsis UTI (Leukocytosis, Fever, Hypoxia) #H/O Klebsiella UTI #CKD Stage III * Admit to Med Surg Tele for further management * Urine + leukocyte esterase, nitrites, blood. History of Klebsiella. Urine culture pending. Blood cultures pending. * Ceftriaxone given in ED- will treat with Cefepime 2gm Q8H * NSS 500 ml given in ED-> will give NSS IV replacement 80 ml/hr while inpatient * Stable renal functioning. Cr 1.2. Baseline 1.1-1.4 BMP ordered for AM labs. * CBC with AM labs- ordered * PT/OT eval when appropriate * Case Management to consider HH at discharge. #Hypoxia * O2 sats to low 90's when sleeping- recovered >94% with supplemental 2LPM O2 * Nocturnal pulse ox monitoring ordered * oxygen as needed to maintain sats >92% * Flu/RSV/Covid pending-> isolation precautions for now * CT showing 3 mm nodular density in the right lung base. Follow-up thoracic CT may be advised for reassessment in 3 months * Incentive spirometer Q4H while awake encouraged #Paroxysmal A Fib s/p Watchman #Hypomag * Continue home propafenone TID dosing * Tele monitoring inpatient * EKG showing NSR with LBBB, QTc 522. Hold QT prolongation meds * Mag 1.6 in ED and replaced with 1gm; Continue home Mag oral supplement tomorrow and recheck level with AM labs. Goal Mag >2 * EKG as needed for chest pain #Elevated Troponin #CAD #Hyperlipidemia * Trop initial 24, increased to 111--> trend Q6H x 2. Most likely demand ischemia in the setting of sepsis * Will obtain an Echo for further assessment. Per external chart review, Echo from 08/2024: LVEF 55-60%. Mild MR. Severe TR. AV PG 9 mmHg. AV MG 4 mmHg. * Continue home aspirin and statin therapy #Hypertension * BP Goal 130/80 * Continue home losartan and amlodipine--> Amlodipine recently decreased from 5mg to 2.5; BP controlled #Hypothyroidism * Continue home levothyroxine DVT Ppx: Scds Code status: Full code for now; Discussed with patient's daughter; Will provide copy Living Will PCP: Dr. Ethel Pulliam Dispo: Admit to Med Tele Patient seen in collaboration with Dr. Myers. Please see addendum.I spent a total of 70 minutes coordinating, documenting and providing care for this patient excluding time spent in the performance of separately billed services or time spent by another provider/QHP. (2) Sepsis secondary to UTI: (3) Hypoxia: (4) Paroxysmal atrial fibrillation: (5) Hypomagnesemia: (6) Elevated troponin: (7) CAD (coronary artery disease): (8) Hyperlipidemia: (9) Hypertension: (10) Hypothyroidism: History of Present Illness Primary Care Provider: Ethel Sanders DO Patient is a 84 year old F with a past medical history of PAF s/p Watchman, TIA (2019), Tachycardia s/p cardioversion in 1999, CAD, HTN, CKD Stg III, dementia, hypothyroidism, prediabetes, recurrent UTI w/ history Klebsiella, presenting with nausea, vomiting, confusion. Symptoms began this morning with episode vomiting followed by confusion, per family report patient was awake with no LOC, but not responding to questions and seemed not at baseline. Arrived here via EMS. Possible foul smelling urine at home. Denies urinary symptoms. Denies fever, chills, weight loss, weakness, headache, cognitive changes, vision/hearing changes, chest pain, SOB, swelling, difficulty breathing, urinary concerns, diarrhea, joint swelling/pain, ambulation difficulty, skin rashes, lesions, bleeding, bruising. In the emergency department, patient was hemodynamically stable with + signs sepsis- elevated temp 37.9, leukocytosis WBC 10.93, mild hypoxia requiring s upplemental oxygen. Procal 1.7. Blood cultures pending. Chest Xray negative. Urine + leukocyte esterase, nitrites, blood. History of Klebsiella. Ceftriaxone given. Clinically dry, history of CKD, Creatinine stable at 1.2 and at baseline. NSS 500 ml bolus given in the ED. EKG showing NSR with LBBB, QTc 522. Initial Trop 24.2, increased to 111.6 most likely in the setting of sepsis with demand ischemia. History CAD on aspirin and statin therapy. History of PAF s/p Watchman. On propafenone and no anticoagulation. Head CT completed, results pending. Low suspicion for intracranial bleed. 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 Abdominal exam benign with no pain. Also with 3 mm nodular density in the right lung base. Follow-up thoracic CT may be advised for reassessment in 3 months As per external chart review, patient was seen by Nephrology on per the request of PCP for CKD. Per Nephro, CKD age-related decline with HTN nephrosclerosis, small degree of proteinuria. Insufficient po fluids at home, advised to maintain 2000 mg sodium diet. Baseline Cr 1.1-1.4. History of diuretic use with worsening CKD. History obtained primarily from the patient and via hospitalization record. The patient's family was at the bedside and assisted with history of present illness and current medications. External chart review obtained from [facility]. Allergies Allergy/AdvReac Type Severity Reaction Status Date / Time brimonidine Allergy Severe RED AND Verified 05/08/25 09:53 IRRITATED EYES carboxymethylcellulose sodium Allergy Severe RED AND Verified 05/08/25 09:53 [From Refresh Plus] IRRITATED EYES cephalexin Allergy Unknown INTERACTS Verified 05/08/25 09:53 WITH A MEDICATION PT TAKES levofloxacin [From Levaquin] Allergy Unknown Unknown Verified 05/08/25 09:53 Home Medications Medication Instructions Recorded Confirmed Type amlodipine 5 mg tablet 2.5 mg PO QAM #0 tabs 05/27/18 05/11/25 History latanoprost 0.005 % eye drops 1 drp OPB HS ##0 05/27/18 05/11/25 History (Xalatan) levothyroxine 25 mcg tablet 25 mcg PO QAM #0 tabs 05/27/18 05/11/25 History magnesium chloride 64 mg 64 mg PO QAM #0 tabs 05/27/18 05/11/25 History (magnesium chloride) tablet,delayed release (Mag 64) multivitamin 1 tab PO QAM #0 tabs 05/27/18 05/11/25 History pravastatin 40 mg tablet 40 mg PO HS ##0 05/27/18 05/11/25 History propafenone 150 mg tablet 150 mg PO TID ##0 05/27/18 05/11/25 History aspirin 81 mg tablet,delayed 81 mg PO QPM 01/18/21 05/11/25 History release donepezil 5 mg tablet 5 mg PO QAM 12/21/24 05/11/25 History gabapentin 300 mg capsule 300 mg PO BID 12/21/24 05/11/25 History losartan 25 mg tablet 25 mg PO QAM 12/21/24 05/11/25 History ondansetron HCl 4 mg tablet 4 mg PO Q8H PRN Nausea 12/21/24 05/11/25 History cholecalciferol (vitamin D3) 50 50 mcg PO DAILY 04/15/25 05/11/25 History mcg (2,000 unit) capsule (Vitamin D3) meclizine 25 mg tablet 25 mg PO DAILY PRN Vertigo 04/15/25 05/08/25 History Past Med/Surg History Problem List Hypoxia Elevated troponin Hypomagnesemia Sepsis secondary to UTI Metabolic encephalopathy Pressure sore on buttocks Diarrhea BRBPR (bright red blood per rectum) RHEA (acute kidney injury) Acute bronchitis due to Rhinovirus Acute hypoxic respiratory failure Acute hypoxemic respiratory failure LLL pneumonia (Acute) Nausea (Acute) Rhinovirus infection (Acute) Neuropathic pain Paroxysmal atrial fibrillation CAD (coronary artery disease) History of TIA (transient ischemic attack) Generalized osteoarthritis Generalized weakness (Acute) Complicated UTI (urinary tract infection) (Acute) COVID-19 (Acute) GERD (gastroesophageal reflux disease) Hypothyroidism Glaucoma Hypertension Hyperlipidemia Medical History Paroxysmal atrial fibrillation hx, cardioversion in 1999, no issue since per ; f/u [facility] ej cardio Hx of kidney disease taken off of diuretic and f/u with [facility] nephrology specialist "told them nothing to be concerned with right now" Acute hypoxemic respiratory failure hx, 11/2024, dx with rhinovirus, resolved per pt and History of dementia early onset per , dx 2023 Hx of osteoarthritis Hx of gastroesophageal reflux (GERD) History of hypothyroidism History of hypertension Hx of hyperlipidemia Hx-TIA (transient ischemic attack) "didn't even know she had it," ~2019; no residual effects History of COVID-19 2023, no residual effects History of tremor Prediabetes pt and denies Sensorineural hearing loss (SNHL) of both ears Obesity (BMI 30.0-34.9) Hiatal hernia History of tachycardia hx cardioversion in 1999; f/u lina, [facility] ej cardio History of pneumonia no recent issues Degenerative disc disease Chronic back pain Hearing deficit bilat h/a Peripheral neuropathy L hand Surgical History H/O left cataract extraction History of total left knee replacement (2017) left History of cardiac cath Diagnostic p/t cardioversion, 1999 History of cardioversion 1999, [facility] History of bilateral tubal ligation History of carpal tunnel release right History of esophagogastroduodenoscopy (EGD) History of colonoscopy History of appendectomy Family History Unknown Family hx of colon cancer Father Hearing loss Mother Hypertension Stroke Heart disease Sister Colorectal cancer Brother Cancer unknown type Heart disease Other No family history of adverse response to anesthesia No family history of bleeding disorder Social History Smoking Status: Never smoker Second Hand Exposure: No; Do You Dip or Chew Tobacco: No; Hx Alcohol Use: Yes Hx Substance Use: No Preferred Language: Bengali Communication Ability: Effective Visual Impairment: Partially Limited Quartz Cutter Required: No Beliefs That Will Affect Care: None marital status: Current Living Situation: Spouse current occupational status: retired Feels Safe at Home: Yes Assistive Devices: Denture - Upper, Glasses, Hearing Aid - Bilateral and Walker Review of Systems Review of Systems: All systems reviewed & are unremarkable except as noted in HPI & below Physical Exam Physical Exam: VITALS: Reviewed. WEIGHT/BMI reviewed. GEN: Healthy appearing, well-developed, NAD. PSYCH: Good Judgment. AOx3. Normal memory, mood, and affect. HEENT -Head: NC/AT; -Eyes: PERRL, EOMI. No discharge or redn ess; -Ears: External ears are normal. Normal TMs. -Nose: Normal nares. -Mouth and throat: MMM. Normal gums, muc sherry, palate,. Good dentition. NECK: Supple, with no masses. CV: RRR, no m/r/g. LUNGS: CTAB, no w/r/c. ABD: Soft, NT/ND, NBS, no masses or organomegaly. : N/A SKIN: Warm, well perfused. No skin rashes or abnormal lesions. MSK: No deformities, Normal gait. EXT: No clubbing, cyanosis, or edema. NEURO: Ambulating with no limitations. Normal muscle strength and tone. No focal deficits. Results & Data Results & Data Vital Signs (Past 12 Hours) Vital Signs Temp Pulse Resp BP Pulse Ox O2 Del Method 05/11/25 14:37 84 05/11/25 14:20 95 Room Air 05/11/25 13:52 37.9 C H 85 18 150/74 H 95 Room Air Laboratory Results Short CBC 05/11/25 Range/Units 14:35 WBC 10.93 H (4.8-10.8) K/ul Hgb 11.4 L (12.0-16.0) g/dl Hct 33.5 L (37.0-47.0) % Plt Count 155 (130-400) K/uL BMP 05/11/25 14:35 Sodium 139 Potassium 4.3 Chloride 108 H Carbon Dioxide 23 BUN 24 H Creatinine 1.24 H Glucose 102 H Calcium 9.1 Liver Function 05/11/25 Range/Units 14:35 Total Bilirubin 0.8 (0.2-1.0) mg/dl Direct Bilirubin 0.2 (0-0.2) mg/dl AST 17 (13-39) U/L ALT 10 (7-52) U/L Alkaline Phosphatase 91 (34-104) U/L Albumin 3.6 (3.4-5.0) gm/dl Urine 05/11/25 Range/Units 14:24 Urine Color Yellow Urine Appearance Clear (Clear) Urine pH 6.0 (4.5-7.5) Ur Specific Mobile 1.013 (1.000-1.030) Urine Protein 1+ H (Negative) Urine Glucose (UA) Negative (Negative) Diagnostic Findings Chest X-Ray 05/11/25 14:20 XR chest 1V portable CLINICAL HISTORY: Chest pain, nonspecific COMPARISON STUDY: 12/22/2024 FINDINGS: Heart size and pulmonary vasculature are normal. No consolidation or pleural effusion. No pneumothorax. IMPRESSION: No acute findings. ACT 112: Negative or not required by law. Electronically signed by: Melvin Nicole M.D. 05/11/2025 2:42 PM Abdomen/Pelvis CT 05/11/25 14:48 CT ABDOMEN and PELVIS with INTRAVENOUS CONTRAST HISTORY: Abdominal pain TECHNIQUE: CT abdomen and pelvis with contrast. IV CONTRAST: 100 mL of OMNIPAQUE 300 ENTERIC CONTRAST: Not Given COMPARISON: CT abdomen pelvis March 25, 2024 FINDINGS: LOWER CHEST: Unchanged cardiomegaly. Coronary and valvular calcifications. Left atrial appendage closure device. 3 mm nodular density in the right lung base (series 8, image 6). LIVER: No focal lesion identified. GALLBLADDER/BILIARY: Unremarkable gallbladder. No abnormal biliary dilatation. SPLEEN: Unremarkable. PANCREAS: Unremarkable. ADRENALS: Unremarkable. KIDNEYS: Atrophic kidneys with renal scarring. Tiny cortical cysts. No stones or hydronephrosis identified. PERITONEUM/RETROPERITONEUM. No lymphadenopathy by size criteria. No aortic aneurysm. Moderate atherosclerosis with stenoses at the origins of the celiac trunk, the SMA, the renal arteries and the DANY. GASTROINTESTINAL: No obstruction. Colonic diverticulosis without evidence of diverticulitis. Multiple loops of small bowel demonstrate mild inflammatory changes with wall thickening. Small hiatal hernia. REPRODUCTIVE: Calcified uterine fibroids. URINARY BLADDER: Unremarkable. ABDOMINAL WALL: No significant hernia identified. BONES: No acute findings. Unchanged lucent lesion in the L3 vertebral body, probably an intraosseous hemangioma IMPRESSION: Mild enteritis is suggested. The etiology is nonspecific and may be infectious/inflammatory although ischemic etiology is not excluded with multifocal stenoses of the mesenteric arterial vasculature. 3 mm nodular density in the right lung base (series 8, image 6). Follow-up thoracic CT may be advised for reassessment in 3 months Electronically signed by Ar Martins 05-11-2025 6:17 PM (7) CAD (coronary artery disease) Associated angina: without angina Coronary Disease-Associated Artery/Lesion type: [place] artery [place] vs. transplanted heart: [place] heart Qualified Code(s): I25.10 - Atherosclerotic heart disease of [place] coronary artery without angina pectoris (8) Hyperlipidemia Hyperlipidemia type: unspecified Qualified Code(s): E78.5 - Hyperlipidemia, unspecified (9) Hypertension Hypertension type: unspecified Qualified Code(s): I10 - Essential (primary) hypertension (10) Hypothyroidism Hypothyroidism type: acquired Qualified Code(s): E03.9 - Hypothyroidism, unspecified
--- NOTE | 2025-05-11 18:17 | CT Scan Report ---
CT ABDOMEN and PELVIS with INTRAVENOUS CONTRAST HISTORY: Abdominal pain TECHNIQUE: CT abdomen and pelvis with contrast. IV CONTRAST: 100 mL of OMNIPAQUE 300 ENTERIC CONTRAST: Not Given COMPARISON: CT abdomen pelvis March 25, 2024 FINDINGS: LOWER CHEST: Unchanged cardiomegaly. Coronary and valvular calcifications. Left atrial appendage closure device. 3 mm nodular density in the right lung base (series 8, image 6). LIVER: No focal lesion identified. GALLBLADDER/BILIARY: Unremarkable gallbladder. No abnormal biliary dilatation. SPLEEN: Unremarkable. PANCREAS: Unremarkable. ADRENALS: Unremarkable. KIDNEYS: Atrophic kidneys with renal scarring. Tiny cortical cysts. No stones or hydronephrosis identified. PERITONEUM/RETROPERITONEUM. No lymphadenopathy by size criteria. No aortic aneurysm. Moderate atherosclerosis with stenoses at the origins of the celiac trunk, the SMA, the renal arteries and the DANY. GASTROINTESTINAL: No obstruction. Colonic diverticulosis without evidence of diverticulitis. Multiple loops of small bowel demonstrate mild inflammatory changes with wall thickening. Small hiatal hernia. REPRODUCTIVE: Calcified uterine fibroids. URINARY BLADDER: Unremarkable. ABDOMINAL WALL: No significant hernia identified. BONES: No acute findings. Unchanged lucent lesion in the L3 vertebral body, probably an intraosseous hemangioma IMPRESSION: Mild enteritis is suggested. The etiology is nonspecific and may be infectious/inflammatory although ischemic etiology is not excluded with multifocal stenoses of the mesenteric arterial vasculature. 3 mm nodular density in the right lung base (series 8, image 6). Follow-up thoracic CT may be advised for reassessment in 3 months Electronically signed by Ar Martins 05-11-2025 6:17 PM
--- NOTE | 2025-05-11 18:45 | Communication Note ---
Date of Service: May 11, 2025 Attending Addendum: Case reviewed with the advanced practitioner. I have personally performed a history and physical examination on the patient. I have reviewed the advanced practitioner's documentation on the date of service referenced in note, and I agree with, and take responsibility for the plan of care. please refer to her notes for full details patient seen and examined, records reviewed by myself as well on exam, patient seen Resting in bed, awake and alert, oriented x 2, answering most questions appropriately, not in distress, in good spirits Appears Somewhat weak daughter at the bedside supplying most of the history Denies abdominal pain, problems with urination but family has noted foul- smelling urine today no diarrhea No chest pain, shortness of breath, palpitations, dizziness no other symptoms VS noted and reviewed oriented x 2, not in distress, speaks in sentences with no effort nor accessory muscle use (+) oral thrush normal rate, regular rhythm, no murmurs clear breath sounds bilaterally non distended, soft, nontender no bipedal edema, erythema, warmth no gross focal neuro deficits all labs, imaging noted and reviewed ASSESSMENT AND PLAN Sepsis, likely secondary to UTI Acute Metabolic Encephalopathy secondary to above has baseline dementia, more confused this morning as per family Blood pressure stable Lactic acid normal, mild leukocytosis 10K Chest x-ray: No pneumonia UA suggestive of UTI CT abdomen pelvis: Possible enteritis versus ischemic colitis History of Klebsiella UTI Follow-up urine, blood cultures Empiric IV cefepime Mild hypoxia I discontinued oxygen supplement at bedside, patient maintaining O2 sats 94-95% patient noted that her O2 level was going below 90 while she was sleeping denies respiratory symptoms clear breath sounds bilaterally, Normal chest x-ray Incentive spirometry Nocturnal Pulse Ox Mild troponin elevation History of CAD Trop 24 --> 110 EKG pending No cardiac symptoms, possibly from demand ischemia, sepsis check 3rd set tonight monitor in Tele Echo Possible enteritis,infectious vs ischemic seen on CT abdomen and pelvis aside from 1 episode of vomiting, no other GI symptoms Lactic acid normal Monitor for now other diagnoses and plan of care as per advanced practitioner's notes I spent a total of 35 minutes coordinating, documenting, and providing care for this patient, excluding time spent in the performance of separately billed serv ices or time spent by another provider/QHP. Jg Acharya MD
[2025-05-11] MEDS: MAGNESIUM SULFATE / D5W 1 GM/100 ML BAG IV ONE (19:36)
[2025-05-11 20:45] LABS: Influenza A virus by PCR Negative (Neg); Influenza B virus by PCR Negative (Neg); SARS CoV2 RNA(COVID-19) Ceph NEGATIVE (Negative)
[2025-05-11] MEDS ORDERED: ONDANSETRON INJ 2 MG/ML 2 ML VIAL IV PRN (22:16)
[2025-05-11] MEDS ORDERED: POLYETHYLENE (MIRALAX) 17 GM PACK PO PRN (22:16)
[2025-05-11] MEDS: PROPAFENONE HCL 150 MG TABLET PO SCH (22:35)
[2025-05-11] MEDS: NYSTATIN SUSP 500,000 U/5 ML UDC PO SCH (22:35)
[2025-05-11] MEDS: PRAVASTATIN SOD 40 MG TAB PO SCH (22:36)
[2025-05-11] MEDS: ASPIRIN 81 MG ECTAB PO SCH (22:36)
[2025-05-11] MEDS: GABAPENTIN 300 MG CAP PO SCH (22:36)
[2025-05-11] MEDS: LATANOPROST 0.005% OP SOLN 2.5 ML BTL OPB SCH (22:36)
[2025-05-11] MEDS: SODIUM CHLORIDE 0.9% 1,000 ML IV SCH (22:37)
[2025-05-11] MEDS: CEFEPIME 2000MG 2,000 MG/20 ML SYR IV SCH (22:37)
[2025-05-12 04:42] LABS: Hematocrit (blood only) 30.3 % (37.0-47.0); Hemoglobin 10.1 g/dl (12.0-16.0); Mean Corpuscular Hemoglobin 29.2 pg (25.0-34.0); Mean Corpuscular Volume 87.6 fL (80.0-100.0); Platelet Count 132 K/uL (130-400); RDW Standard Deviation 43.6 fL (36.4-46.3); Red Blood Count 3.46 M/uL (4.20-5.40); White Blood Count 14.05 K/ul (4.8-10.8)
[2025-05-12 04:51] LABS: A calco-baum cmplx NotReported Not Detected (NotDetected); Bact fragilis Not Reported Not Detected (NotDetected); Blood Culture Id Panel See PCR Comment (NotDetected); C auris Not Reported Not Detected (NotDetected); CTX-M Resistant Gene Not Detected (NotDetected); Calbicans Not Reported Not Detected (NotDetected); Candida glabrata Not Reported Not Detected (NotDetected); Candida krusei Not Reported Not Detected (NotDetected); Cneoformans/gatti Not Reported Not Detected (NotDetected); Cparapsilosis Not Reported Not Detected (NotDetected); Ctropicalis Not Reported Not Detected (NotDetected); E cloacae compx Not Reported Not Detected (NotDetected); Efaecalis Not Reported Not Detected (NotDetected); Efaecium Not Reported Not Detected (NotDetected); Enterobacterales DETECTED (NotDetected); Enterobacterales Not Reported DETECTED (NotDetected); Escherichia coli Not Reported DETECTED (NotDetected); H influenzae Not Reported Not Detected (NotDetected); IMP Resistant Gene Not Detected (NotDetected); K aerogenes Not Reported Not Detected (NotDetected); KPC Resistant Gene Not Detected (NotDetected); Koxytoca Not Reported Not Detected (NotDetected); Kpneumoniae grp Not Reported Not Detected (NotDetected); Lmonocyt Not Reported Not Detected (NotDetected); N meningitidis Not Reported Not Detected (NotDetected); NDM Resistant Gene Not Detected (NotDetected); OXA 48 Like Resistant Gene Not Detected (NotDetected); P aeruginosa Not Reported Not Detected (NotDetected); Proteus spp Not Reported Not Detected (NotDetected); Salmonella spp Not Reported Not Detected (NotDetected); Staph lugdunensis Not Reported Not Detected (NotDetected); Staph spp. Not Reported Not Detected (NotDetected); Staphaureus Not Reported Not Detected (NotDetected); Staphepi Not Reported Not Detected (NotDetected); Stenmaltophilia Not Reported Not Detected (NotDetected); Strep agal(GrpB) Not Reported Not Detected (NotDetected); Strep pneum Not Reported Not Detected (NotDetected); Strep pyog (GrpA) Not Reported Not Detected (NotDetected); Strep spp Not Reported Not Detected (NotDetected); VIM Resistant Gene Not Detected (NotDetected); mcr-1 Colistin Resistant Gene Not Detected (NotDetected)
[2025-05-12 04:56] LABS: Anion Gap 7.0 (3-11); Blood Urea Nitrogen 26.0 mg/dl (6-23); Calcium 8.2 mg/dl (8.6-10.3); Carbon Dioxide 24.0 mmol/L (21-32); Chloride 109.0 mmol/L (98-107); Creatinine Clr Calc Pharmacy 28.9 ml/min; Glucose 108.0 mg/dl (70-99(Fasting)); Magnesium 2.1 mg/dl (1.7-2.4); Potassium 4.5 mmol/L (3.5-5.1); Sodium 140.0 mmol/L (136-145)
[2025-05-12 05:07] LABS: Partial Thromboplastin Time 31 Seconds (21-31)
--- NOTE | 2025-05-12 05:33 | CT Scan Report ---
EXAM: CT head/brain wo con CLINICAL HISTORY: Confusion TECHNIQUE: Axial non-contrast CT scan of the brain was performed from the skull base to the high parietal region. One of the following dose reduction techniques was utilized for this exam: Automated exposure control, adjustment of the mA and/or kV according to patient size, use of iterative reconstruction. COMPARISON: Compared to prior CT dated 03/25/2024 FINDINGS: No acute intracranial hemorrhage, mass effect, or midline shift. The ventricular system is enlarged, particularly the lateral and third ventricles, in keeping with central cerebral atrophy. Cortical sulci are widened, consistent with age-related volume loss. Periventricular and deep white matter show diffuse hypodensities, suggestive of chronic small vessel ischemic changes. Basal ganglia and thalami show mild calcification; no focal infarct or hemorrhage is seen. Posterior fossa structures are unremarkable. No extra-axial fluid collections or skull fractures. IMPRESSION: 1. Compared to the prior CT study dated 03/25/2024 2. No interval changes of diffuse chronic ischemic white matter changes, consistent with small vessel disease. 3. No Interval changes of central cerebral atrophy, age-related, with associated ventricular prominence, possibly out of proportion to age related changes 4. Differential diagnosis includes normal pressure hydrocephalus, clinical evaluation and MRI CSF flowmetry advised if required 5. No evidence of acute territorial infarct, hemorrhage, or mass effect. Electronically signed by Phil Cline 05-12-2025 05:32 AM
[2025-05-12] MEDS: LEVOTHYROXINE SODIUM 25 MCG TABLET PO SCH (06:07)
[2025-05-12] MEDS: MOXIFLOXACIN OPL SCH (08:57)
[2025-05-12] MEDS: BROMFENAC OPL SCH (08:57)
[2025-05-12] MEDS: PREDNISOLONE OPL SCH (08:57)
[2025-05-12] MEDS: MAGNESIUM CHLORIDE W/CALCIUM 64MG DELAYED REL TAB PO SCH (08:58)
[2025-05-12] MEDS: CHOLECALCIFEROL 25 MCG (1000 UNITS) TAB PO SCH (08:58)
[2025-05-12] MEDS: LOSARTAN POTASSIUM 25 MG TAB PO SCH (08:58)
[2025-05-12] MEDS ORDERED: DONEPEZIL HCL 5 MG TAB PO SCH (09:00)
--- NOTE | 2025-05-12 11:07 | Gastrointestinal Consultation ---
Date of Consultation May 12, 2025 Assessment & Plan (1) Abnormal CT of the abdomen: Patient is currently admitted with sepsis secondary to UTI. CT scan concerning for mild enteritis that could be infectious vs inflammatory, though cannot rule out ischemic in nature. From a GI standpoint, she seems to be asymptomatic without reports of altered bowels and no reports of abdominal discomfort. Family tells me that given her age and overall health, they do not want any invasive GI procedures to be done. - recommend supportive care. Supervising Physician Co-Signing Physician Notes Patient seen and examined with Gregory Queen PAC and agree with assessment and plan. States she is hungry. Daughter at bedside said she has been having diarrhea. Abd: Soft, NT, ND, +BS Check stool studies for further evaluation. Continue current therapy and supportive care History of Present Illness Reason for Consultation: concern for ischemic colitis Requesting Physician: Antonio Velez MD Attending Physician: Antonio Velez MD History of Present Illness Patient is an 84 year old female with a past medical history of PAF s/p Watchman, TIA (2018), Tachycardia s/p cardioversion in 1999, CAD, HTN, CKD III, dementia, hypothyroidism, prediabetes, recurrent UTI w/ history Klebsiella, who presented to the ED on 05/11 with nausea, vomiting, and confusion. History is obtained from the patient's and daughter given dementia. Patient was not sure why she was admitted. tells me that she was acting off which prompted them to seek ED evaluation. Currently admitted with metabolic encephalopathy secondary to sepsis UTI. GI asked to see for concern for ischemic colitis. Patient reports normal bowel movements. Family tells me that she has not had issues with her bowels. no reported blood or melena. Last colonoscopy was done "years ago" in [place] but feels it was normal. Patient denies current GI complaints and GI ros are unremarkable. Daughter and tell me that they do not wish to have an GI work up as they do not think the patient would tolerate it. CT A/P 05/11/25 Mild enteritis is suggested. The etiology is nonspecific and may be infectious/inflammatory although ischemic etiology is not excluded with multifocal stenoses of the mesenteric arterial vasculature. 3 mm nodular density in the right lung base (series 8, image 6). Follow-up thoracic CT may be advised for reassessment in 3 months Allergies Allergy/AdvReac Type Severity Reaction Status Date / Time brimonidine Allergy Severe RED AND Verified 05/08/25 09:53 IRRITATED EYES carboxymethylcellulose sodium Allergy Severe RED AND Verified 05/08/25 09:53 [From Refresh Plus] IRRITATED EYES cephalexin Allergy Unknown INTERACTS Verified 05/08/25 09:53 WITH A MEDICATION PT TAKES levofloxacin [From Levaquin] Allergy Unknown Unknown Verified 05/08/25 09:53 Home Medications Medication Instructions Recorded Confirmed Type amlodipine 5 mg tablet 2.5 mg PO QAM #0 tabs 05/27/18 05/11/25 History latanoprost 0.005 % eye drops 1 drp OPB HS ##0 05/27/18 05/11/25 History (Xalatan) levothyroxine 25 mcg tablet 25 mcg PO QAM #0 tabs 05/27/18 05/11/25 History magnesium chloride 64 mg 64 mg PO QAM #0 tabs 05/27/18 05/11/25 History (magnesium chloride) tablet,delayed release (Mag 64) multivitamin 1 tab PO QAM #0 tabs 05/27/18 05/11/25 History pravastatin 40 mg tablet 40 mg PO HS ##0 05/27/18 05/11/25 History propafenone 150 mg tablet 150 mg PO TID ##0 05/27/18 05/11/25 History aspirin 81 mg tablet,delayed 81 mg PO QPM 01/18/21 05/11/25 History release donepezil 5 mg tablet 5 mg PO QAM 12/21/24 05/11/25 History gabapentin 300 mg capsule 300 mg PO BID 12/21/24 05/11/25 History losartan 25 mg tablet 25 mg PO QAM 12/21/24 05/11/25 History ondansetron HCl 4 mg tablet 4 mg PO Q8H PRN Nausea 12/21/24 05/11/25 History cholecalciferol (vitamin D3) 50 50 mcg PO DAILY 04/15/25 05/11/25 History mcg (2,000 unit) capsule (Vitamin D3) meclizine 25 mg tablet 25 mg PO DAILY PRN Vertigo 04/15/25 05/08/25 History Patient History Medical History Paroxysmal atrial fibrillation hx, cardioversion in 1999, no issue since per ; f/u [facility] Hx of kidney disease taken off of diuretic and f/u with [facility] nephrology specialist "told them noth ing to be concerned with right now" Acute hypoxemic respiratory failure hx, 11/2024, dx with rhinovirus, resolved per pt and History of dementia early onset per , dx 2023 Hx of osteoarthritis Hx of gastroesophageal reflux (GERD) History of hypothyroidism History of hypertension Hx of hyperlipidemia Hx-TIA (transient ischemic attack) "didn't even know she had it," ~2019; no residual effects History of COVID-19 2023, no residual effects History of tremor Prediabetes pt and denies Sensorineural hearing loss (SNHL) of both ears Obesity (BMI 30.0-34.9) Hiatal hernia History of tachycardia hx cardioversion in 1999; f/u [facility] History of pneumonia no recent issues Degenerative disc disease Chronic back pain Hearing deficit bilat h/a Peripheral neuropathy L hand Surgical History H/O left cataract extraction History of total left knee replacement (2017) left History of cardiac cath Diagnostic p/t cardioversion, 1999 History of cardioversion 1999, [facility] History of bilateral tubal ligation History of carpal tunnel release right History of esophagogastroduodenoscopy (EGD) History of colonoscopy History of appendectomy Family History Unknown Family hx of colon cancer Father Hearing loss Mother Hypertension Stroke Heart disease Sister Colorectal cancer Brother Cancer unknown type Heart disease Other No family history of adverse response to anesthesia No family history of bleeding disorder Social History Smoking Status: Never smoker Second Hand Exposure: No; Do You Dip or Chew Tobacco: No; Hx Alcohol Use: No Hx Substance Use: No Preferred Language: [place] Citizen Communication Ability: Effective Visual Impairment: Partially Limited Physician Practice Consultant Required: No Beliefs That Will Affect Care: None marital status: Current Living Situation: Spouse current occupational status: retired Feels Safe at Home: Yes Safety Concerns: Feels Safe At This Time Assistive Devices: Walker Review of Systems Review of Systems: All systems reviewed & are unremarkable except as noted in HPI & below Physical Exam Constitutional: WD/WN, vitals as above Respiratory: normal respiratory effort, lungs clear to auscultation Cardiovascular: Rate/Rhythm: regular rate and regular rhythm Gastrointestinal (Abdomen): normal bowel sounds, soft, nontender, no hepatosplenomegaly Psychiatric: Orientation: alert and oriented x 3 Results & Data Vital Signs (Past 12 Hours) Vital Signs Temp Pulse Pulse Pulse Resp BP BP 05/12/25 10:46 97.3 F L 64 20 116/61 05/12/25 07:24 97.5 F L 62 97 H 105/53 L 05/12/25 05:43 60 05/12/25 03:33 97.9 F 61 16 104/68 05/12/25 01:45 60 05/11/25 23:54 Pulse Ox Pulse Ox O2 Del Method O2 Del Method 05/12/25 10:46 100 Room Air 05/12/25 07:24 96 Room Air 05/12/25 05:43 05/12/25 03:33 99 Room Air 05/12/25 01:45 93 Room Air 05/11/25 23:54 Room Air Coding Level of Care Code 11611 INT INP/OBS CARE 2/55MIN Diagnoses Abnormal CT of the abdomen R93.5
--- NOTE | 2025-05-12 11:42 | Electrocardiogram Report ---
Test Reason : Blood Pressure : */* mmHG Vent. Rate : 87 BPM Atrial Rate : 87 BPM P-R Int : 208 ms QRS Dur : 158 ms QT Int : 452 ms P-R-T Axes : 47 -24 85 degrees QTcB Int : 543 ms Normal sinus rhythm Left bundle branch block Abnormal ECG When compared with ECG of 11-May-2025 14:28, (unconfirmed) No significant change was found Confirmed by Srinath Dow ([id number]) on 05/12/2025 11:41:49 AM Referred By: REFERRED SELF Confirmed By: Srinath Dow
--- NOTE | 2025-05-12 11:42 | Electrocardiogram Report ---
Test Reason : Blood Pressure : */* mmHG Vent. Rate : 84 BPM Atrial Rate : 84 BPM P-R Int : 204 ms QRS Dur : 162 ms QT Int : 442 ms P-R-T Axes : 47 -21 101 degrees QTcB Int : 522 ms Normal sinus rhythm Left bundle branch block Abnormal ECG When compared with ECG of 21-Dec-2024 18:19, Left bundle branch block is now Present Confirmed by Srinath Dow ([id number]) on 05/12/2025 11:42:11 AM Referred By: REFERRED SELF Confirmed By: Srinath Dow
--- NOTE | 2025-05-12 13:33 | Hospitalist Progress Note ---
Date of Service May 12, 2025 Assessment & Plan (1) Metabolic encephalopathy: Plan: Patient is a 84 year old F with a past medical history of PAF s/p Watchman, TIA (2019), Tachycardia s/p cardioversion in 1999, CAD, HTN, CKD Stg III, dementia, hypothyroidism, prediabetes, recurrent UTI w/ history Klebsiella, presenting with nausea, vomiting, confusion. Symptoms began this morning with episode of vomiting followed by confusion, per family report patient was awake with no LOC, but not responding to questions and seemed not at baseline. Patient has dementia. Arrived here via EMS. Possible foul smelling urine at home. Denies urinary symptoms. #Metabolic encephalopathy 2/2 sepsis UTI (Leukocytosis, Fever, Hypoxia) #Gram Negative Bacteremia #E. coli Bacteremia #CKD Stage III * stop cefepime, start ceftriaxone, will need 5-7 day course of abx, f/u sensitivities * PT/OT eval * Case Management to consider HH at discharge. * hold donepezil, gabapentin for today #Hypoxia * O2 sats to low 90's when sleeping- recovered >94% with supplemental 2LPM O2 * oxygen as needed to maintain sats >90% * CT showing 3 mm nodular density in the right lung base. Follow-up thoracic CT may be advised for reassessment in 3 months * Incentive spirometer Q4H while awake encouraged #Paroxysmal A Fib s/p Watchman #Hypomag * Continue home propafenone TID dosing * EKG showing NSR with LBBB, QTc 522. Hold QT prolongation med * EKG as needed for chest pain #Type 2 MO #CAD #Hyperlipidemia * f/u with cardiology outpatient #Hypertension * Continue home losartan and amlodipine #Hypothyroidism * Continue home levothyroxine I spent a total of 50 minutes in direct patient care, including [id number] time with the patient and/or family, reviewing medical records, ordering and reviewing diagnostic tests, and coordinating care with other healthcare providers. This time includes: history taking, physical examination, medical decision making, counseling, ECG interpretation, imaging interpretation, lab interpretation, orders, and education, excluding time spent in the performance of separately billed services. (2) Sepsis secondary to UTI: (3) Hypoxia: (4) Paroxysmal atrial fibrillation: (5) Hypomagnesemia: (6) Elevated troponin: (7) CAD (coronary artery disease): (8) Hyperlipidemia: (9) Hypertension: (10) Hypothyroidism: Admission and Anticipated Discharge Date Admission Date: May 11, 2025 Subjective Patient seen and examined at bedside. Patient is doing better today. Daughter and at bedside. Discussed risks and benefits of a potential colonoscopy, family ultimately declined with patient at this time given asymptomatic. Review of Systems Review of Systems: CONSTITUTIONAL: weakness, fatigue EYES: Patient denies any visual symptoms. EARS, NOSE, AND THROAT: No difficulties with hearing. No symptoms of rhinitis or sore throat. CARDIOVASCULAR: Patient denies chest pains, palpitations, orthopnea and paroxysmal nocturnal dyspnea. RESPIRATORY: No dyspnea on exertion, no wheezing or cough. GI: No nausea, vomiting, diarrhea, constipation, abdominal pain, hematochezia or melena. : No urinary hesitancy or dribbling. No nocturia or urinary frequency. No abnormal urethral discharge. MUSCULOSKELETAL: No myalgias or arthralgias. NEUROLOGIC: No chronic headaches, no seizures. Patient denies numbness, tingling or weakness. PSYCHIATRIC: Patient denies problems with mood disturbance. No problems with anx iety. ENDOCRINE: No excessive urination or excessive thirst. DERMATOLOGIC: Patient denies any rashes or skin changes. Physical Exam Physical Exam: Gen: A&O 3 NAD HEENT: NCAT, EOMI, not icteric. External ears normal. No rhinorrhea. Moist mucous membranes. Neck: Supple, full range of motion, no observable masses, No meningeal sign. Lungs: No Respiratory distress. CV: RRR, no edema. Abdomen: Soft, nondistended, No rebound tenderness. MSK: No joint swelling, no redness. Skin: No rashes, petechiae, lesions. Normal color per patient. Neuro: Normal Gait, Grossly intact. Psych: Appropriate for situation. Results & Data Results & Data Vital Signs (Past 12 Hours) Vital Signs Temp Pulse Pulse Pulse Resp BP BP 05/12/25 10:46 36.3 C L 64 20 116/61 05/12/25 07:24 36.4 C L 62 97 H 105/53 L 05/12/25 05:43 60 05/12/25 03:33 36.6 C 61 16 104/68 05/12/25 01:45 60 Pulse Ox Pulse Ox O2 Del Method O2 Del Method 05/12/25 10:46 100 Room Air 05/12/25 07:24 96 Room Air 05/12/25 05:43 05/12/25 03:33 99 Room Air 05/12/25 01:45 93 Room Air Laboratory Results -personally reviewed, leukocytosis of 14, mildly uptrending creatinine on CKD still around baseline, elevated trop in setting of type 2 MO Medications Administered Amlodipine Besylate (Amlodipine Besylate 5 Mg Tab) [facility] Stop: 06/11/25 08:59 Last Admin: 05/12/25 08:59 Dose: 2.5 mg Documented By: DELFINA Aspirin (Aspirin 81 Mg Ectab) 81 mg PO QPM [facility] Stop: 06/10/25 20:59 Last Admin: 05/11/25 22:36 Dose: 81 mg Documented By: DAVID Sodium Chloride (Nss) 1,000 mls @ 80 mls/hr IV .[id number] [facility] Stop: 05/14/25 22:15 Last Admin: 05/12/25 12:19 Dose: 80 mls/hr Documented By: Infusion: 05/12/25 11:07 Dose: Infused Documented By: Admin: 05/11/25 22:37 Dose: 80 mls/hr Documented By: DAVID Latanoprost (Latanoprost 0.005% Op Soln 2.5 Ml Btl) 1 drops OPB HS [facility] Stop: 06/10/25 20:59 Last Admin: 05/11/25 22:36 Dose: 1 drops Documented By: DAVID Levothyroxine Sodium (Levothyroxine Sodium 25 Mcg Tablet) 25 mcg PO DAILYBB [facility] Stop: 06/11/25 06:29 Last Admin: 05/12/25 06:07 Dose: 25 mcg Documented By: DAVID Losartan Potassium (Losartan Potassium 25 Mg Tab) [facility] Stop: 06/11/25 08:59 Last Admin: 05/12/25 08:58 Dose: 25 mg Documented By: DELFINA Magnesium Chloride (Magnesium Chloride W/Calcium 64mg Delayed Rel Tab) 64 [facility] Stop: 06/11/25 08:59 Last Admin: 05/12/25 08:58 Dose: 64 mg Documented By: DELFINA Prednisolone/Moxifloxacin/Bromfenac: Non- Formulary Patient's Own Med 1 each OPL BID [facility] Stop: 06/11/25 08:59 Last Admin: 05/12/25 08:57 Dose: 1 ea Documented By: DELFINA Nystatin (Nystatin Susp 500,000 U/5 Ml Udc) 5 ml PO QID [facility] Stop: 05/21/25 20:59 Last Admin: 05/12/25 08:56 Dose: 5 ml Documented By: Admin: 05/11/25 22:35 Dose: 5 ml Documented By: DAVID Pravastatin Sodium (Pravastatin Sod 40 Mg Tab) 40 mg PO HS [facility] Stop: 06/10/25 20:59 Last Admin: 05/11/25 22:36 Dose: 40 mg Documented By: DAVID Propafenone HCl (Propafenone Hcl 150 Mg Tablet) 150 mg PO TID [facility] Stop: 06/10/25 20:59 Last Admin: 05/12/25 08:55 Dose: 150 mg Documented By: Admin: 05/11/25 22:35 Dose: 150 mg Documented By: DAVID Vitamin D (Cholecalciferol 25 Mcg (1000 Units) Tab) 50 mcg PO DAILY [facility] Stop: 06/11/25 08:59 Last Admin: 05/12/25 08:58 Dose: 50 mcg Documented By: DELFINA (7) CAD (coronary artery disease) Coronary Disease-Associated Artery/Lesion type: [place] artery [place] vs. transplanted heart: [place] heart Associated angina: without angina Qualified Code(s): I25.10 - Atherosclerotic heart disease of [place] coronary artery without angina pectoris (8) Hyperlipidemia Hyperlipidemia type: unspecified Qualified Code(s): E78.5 - Hyperlipidemia, unspecified (9) Hypertension Hypertension type: unspecified Qualified Code(s): I10 - Essential (primary) hypertension (10) Hypothyroidism Hypothyroidism type: acquired Qualified Code(s): E03.9 - Hypothyroidism, unspecified
[2025-05-12] MEDS: ACETAMINOPHEN 325 MG TAB PO PRN (19:37)
--- NOTE | 2025-05-12 20:15 | Communication Note ---
Date of Service: May 12, 2025 Patient complaining of sudden onset right ear pain without unusual hearing loss or discharge. No fever, no chills. PPE AD erythematous EAC with retained cerumen, TM not fully visualized AP Acute otitis externa, right Ciprodex course
[2025-05-12] MEDS: cefTRIAXone SODIUM 2,000 MG/50 ML BAG IV SCH (20:45)
[2025-05-12] MEDS: CIPRO 0.3%/DEXAMETHASONE 0.1% OTIC SUSP 7.5ML OTR SCH (23:40)
[2025-05-13 08:08] LABS: Cdiff Toxin B Gene (2yr or >) Negative Cdiff Gene (Neg)
[2025-05-13 08:27] LABS: Anion Gap 7.0 (3-11); Blood Urea Nitrogen 22.0 mg/dl (6-23); Calcium 8.9 mg/dl (8.6-10.3); Carbon Dioxide 24.0 mmol/L (21-32); Chloride 107.0 mmol/L (98-107); Creatinine Clr Calc Pharmacy 30.5 ml/min; Glucose 93.0 mg/dl (70-99(Fasting)); Magnesium 2.0 mg/dl (1.7-2.4); Potassium 4.5 mmol/L (3.5-5.1); Sodium 138.0 mmol/L (136-145)
[2025-05-13 08:36] LABS: Hematocrit (blood only) 32.0 % (37.0-47.0); Hemoglobin 10.9 g/dl (12.0-16.0); Mean Corpuscular Hemoglobin 29.6 pg (25.0-34.0); Mean Corpuscular Volume 87.0 fL (80.0-100.0); Platelet Count 143 K/uL (130-400); RDW Standard Deviation 43.7 fL (36.4-46.3); Red Blood Count 3.68 M/uL (4.20-5.40); White Blood Count 8.91 K/ul (4.8-10.8)
[2025-05-13 08:40] LABS: Adenovirus F 40/41 PCR Not Detected (NotDetected); Campylobacter PCR Not Detected (NotDetected); Enteroaggregative E.coli(EAEC) Not Detected (NotDetected); Shiga-like Toxin E.coli (STEC) Not Detected (NotDetected); Vibrio species PCR Not Detected (NotDetected)
--- NOTE | 2025-05-13 09:03 | Gastroenterology Progress Note ---
Date of Service May 13, 2025 Assessment & Plan (1) Abnormal CT of the abdomen: (2) Diarrhea: Plan 84yowf with h/o pAfib no AC, dementia, GERD, hypothyroidism, Glaucoma, HTN, DL, CAD Respiratory failure admitted to hospital with MS changes and UTI with E.coli bacteremia. GI consulted for abnormal CT scan for possible enteritis. Clinically she has had no abdominal pain, nausea or vomiting since arrival. LFTs WNL. H/H stable. She did have 3 diarrhea stools yesterday. Last night was formed and normal stools today. Stool PCR and Cdiff negative. She denies any dysphagia, abdominal pain, N/V, melena or hematochezia. (1) Possible Enteritis on CT scan without oral contrast. Negative Cdiff and stool PCR. - Etiology nonspecific and may be infectious/inflammatory although ischemic etiology is not excluded with multifocal stenoses of the mesenteric arterial vasculature. Exam limited without use of oral contrast. - Recommended ongoing clinical monitoring with patient not having abdominal pain, diarrhea or hematochezia. - No s/s to suggest IBD or ischemic colitis at this time. - Could consider further evaluation if she develops on going symptoms of diarrhea or abdominal pain. - Further recommendations to come with Supervising GI provider on medical rounds. Please see co-signature comments. Admission and Anticipated Discharge Date Admission Date: May 11, 2025 Supervising Physician Co-Signing Physician Notes Patient seen and examined. Agree with assessment and plan as per SUSAN Rudd as above. Abd: Soft, NT, ND, +BS Continue current therapy and supportive care No plans for invasive testing at present. Subjective 84yowf with h/o pAfib no AC, dementia, GERD, hypothyroidism, Glaucoma, HTN, DL, CAD Respiratory failure is seen today for daily GI rounds in hospital for follow up of abnormal CT scan for possible enteritis. She was brought to [facility] ER initially for changes in mental status with nausea and vomiting and confusion that began abruptly that morning. Per family members patient was noted to be awake with her eyes open but did not respond to questions prior to arrival. Patient interacting at her baseline upon arrival. ER work up reviewed:. WBC 10.9 K with neutrophilia but no left shift. H/H similar to prior. Platelets within normal limits. Chemistry without metabolic acidosis. Creatinine 1.2 slightly increased from recent though within prior range of values. Initial troponin 24.2, similar to prior nonspecific. UA demonstrates positive nitrites, WBCs and RBCs and 4+ bacteria. CT of the abdomen pelvis demonstrates suggestion of enteritis. Pulmonary nodules also described. CT of the head negative for acute abnormalities per ER review. Patient was treated with IV fluid hydration, IV famotidine and Zofran in addition to IV ceftriaxone for urinary infection. Blood cultures grew out E.coli consistent with metabolic encephalopathy 2/2 UTI/gram negative bacteremia. GI was consulted to weigh in on nausea and vomiting and possible findings of enteritis on CT scan. Clinically reviewed with patient, and daughter today. Clinically she has done well with eating and drinking since being in hospital. She did have 3 diarrheal stools yesterday, which was the first time she had diarrheal stools in hospital. She had one formed stool last night and no stools thus far this morning. She denies any dysphagia, abdominal pain, N/V, melena or hematochezia. Pertinent diagnostics reviewed CBC reviewed for today . Hgb stable at 10.9g/dl. Stool PCR and C.diff 05/13/25 - Negative. LFTs WNL 05/11/25 CT abd/pelvis 05/11/25 IMPRESSION: Mild enteritis is suggested. The etiology is nonspecific and may be infectious/inflammatory although ischemic etiology is not excluded with multifocal stenoses of the mesenteric arterial vasculature. Review of Systems Review of Systems: See HPI Physical Exam Physical Exam: Constitutional: NAD. Alert. Answering questions appropriately. Respiratory: Breathing is even, non-labored. Lungs [place] are clear to auscultation anteriorly. Cardiovascular: Regular Rate and Rhythm, no murmurs, rubs or gallops appreciated. Gastrointestinal (Abdomen): Normoactive bowel sounds x4, soft, non-distended, non-tender. Musculoskeletal: Lying in bed comfortably. No peripheral edema. Results & Data Results & Data Vital Signs (Past 12 Hours) Vital Signs Temp Pulse Pulse Resp BP Pulse Ox O2 Del Method 05/13/25 08:05 97.7 F 69 154/80 H 95 Room Air 05/13/25 05:33 69 05/13/25 04:07 98.8 F 67 20 159/76 H 95 Room Air 05/12/25 23:53 98.2 F 62 20 120/71 97 Room Air 05/12/25 21:40 69 05/12/25 21:27 Room Air PG Care Time/CCT Total # of Minutes Spent Total Time Spent with Patient: Total time spent is greater than 50% in coordination of care (as documented) at patient's floor/unit and/or counseling patient: Coding Level of Care Code 04420 SUB INP/OBS CARE 3/50MIN Diagnoses Abnormal CT of the abdomen R93.5 Diarrhea R19.7
--- NOTE | 2025-05-13 13:54 | Hospitalist Progress Note ---
Date of Service May 13, 2025 Assessment & Plan (1) Metabolic encephalopathy: Plan: Patient is a 84 year old F with a past medical history of PAF s/p Watchman, TIA (2019), Tachycardia s/p cardioversion in 1999, CAD, HTN, CKD Stg III, dementia, hypothyroidism, prediabetes, recurrent UTI w/ history Klebsiella, presenting with nausea, vomiting, confusion. Symptoms began this morning with episode of vomiting followed by confusion, per family report patient was awake with no LOC, but not responding to questions and seemed not at baseline. Patient has dementia. Arrived here via EMS. Possible foul smelling urine at home. Denies urinary symptoms. #Metabolic encephalopathy 2/2 sepsis UTI (Leukocytosis, Fever, Hypoxia) #Gram Negative Bacteremia #E. coli Bacteremia #CKD Stage III * continueceftriaxone, will need 5-7 day course of abx, f/u sensitivities * want one more day of IV therapies given elderly * PT/OT eval, likely homegoing * Case Management to consider HH at discharge. * hold donepezil, gabapentin f #Hypoxia * O2 sats to low 90's when sleeping- recovered >94% with supplemental 2LPM O2 * oxygen as needed to maintain sats >90% * CT showing 3 mm nodular density in the right lung base. Follow-up thoracic CT may be advised for reassessment in 3 months * Incentive spirometer Q4H while awake encouraged #Paroxysmal A Fib s/p Watchman #Hypomag * Continue home propafenone TID dosing * EKG showing NSR with LBBB, QTc 522. Hold QT prolongation med #Type 2 [place] #CAD #Hyperlipidemia * f/u with cardiology outpatient #Hypertension * Continue home losartan and amlodipine #Hypothyroidism * Continue home levothyroxine I spent a total of 45 minutes in direct patient care, including [id number] time with the patient and/or family, reviewing medical records, ordering and reviewing diagnostic tests, and coordinating care with other healthcare provid ers. This time includes: history taking, physical examination, medical decision making, counseling, ECG interpretation, imaging interpretation, lab interpretation, orders, and education, excluding time spent in the performance of separately billed services. (2) Sepsis secondary to UTI: (3) Hypoxia: (4) Paroxysmal atrial fibrillation: (5) Hypomagnesemia: (6) Elevated troponin: (7) CAD (coronary artery disease): (8) Hyperlipidemia: (9) Hypertension: (10) Hypothyroidism: Admission and Anticipated Discharge Date Admission Date: May 11, 2025 Subjective Patient seen and examined at bedside. Patient doing well today, feels better overall. Review of Systems Review of Systems: CONSTITUTIONAL: weakness, fatigue EYES: Patient denies any visual symptoms. EARS, NOSE, AND THROAT: No difficulties with hearing. No symptoms of rhinitis or sore throat. CARDIOVASCULAR: Patient denies chest pains, palpitations, orthopnea and paroxysmal nocturnal dyspnea. RESPIRATORY: No dyspnea on exertion, no wheezing or cough. GI: No nausea, vomiting, diarrhea, constipation, abdominal pain, hematochezia or melena. : No urinary hesitancy or dribbling. No nocturia or urinary frequency. No abnormal urethral discharge. MUSCULOSKELETAL: No myalgias or arthralgias. NEUROLOGIC: No chronic headaches, no seizures. Patient denies numbness, tingling or weakness. PSYCHIATRIC: Patient denies problems with mood disturbance. No problems with anxiety. ENDOCRINE: No excessive urination or excessive thirst. DERMATOLOGIC: Patient denies any rashes or skin changes. Physical Exam Physical Exam: Gen: A&O 3 NAD HEENT: NCAT, EOMI, not icteric. External ears normal. No rhinorrhea. Moist mucous membranes. Neck: Supple, full range of motion, no observable masses, No meningeal sign. Lungs: No Respiratory distress. CV: RRR, no edema. Abdomen: Soft, nondistended, No rebound tenderness. MSK: No joint swelling, no redness. Skin: No rashes, petechiae, lesions. Normal color per patient. Neuro: Normal Gait, Grossly intact. Psych: Appropriate for situation. Results & Data Results & Data Vital Signs (Past 12 Hours) Vital Signs Temp Pulse Pulse Resp BP Pulse Ox O2 Del Method 05/13/25 11:25 36.4 C L 64 153/75 H 98 Room Air 05/13/25 08:05 36.5 C 69 154/80 H 95 Room Air 05/13/25 05:33 69 05/13/25 04:07 37.1 C 67 20 159/76 H 95 Room Air Laboratory Results -personally reviewed, Hgb at baseline, leukocytosis downtrending, creatinine downtrending Medications Administered Acetaminophen (Acetaminophen 325 Mg Tab) 650 mg PO Q4H PRN PRN Reason: Pain or Fever Stop: 06/10/25 22:15 Last Admin: 05/12/25 19:37 Dose: 650 mg Documented By: DAVID Amlodipine Besylate (Amlodipine Besylate 5 Mg Tab) 2.5 mg PO QAM KAROLINE Stop: 06/11/25 08:59 Last Admin: 05/13/25 08:21 Dose: 2.5 mg Documented By: Admin: 05/12/25 08:59 Dose: 2.5 mg Documented By: DELFINA Aspirin (Aspirin 81 Mg Ectab) 81 mg PO QPM KAROLINE Stop: 06/10/25 20:59 Last Admin: 05/12/25 20:45 Dose: 81 mg Documented By: Admin: 05/11/25 22:36 Dose: 81 mg Documented By: DAVID Ciprofloxacin/Dexamethasone (Cipro 0.3%/Dexamethasone 0.1% Otic Susp 7.5ml) 4 drops OTR BID KAROLINE Stop: 05/19/25 22:14 Last Admin: 05/13/25 08:19 Dose: 4 drops Documented By: Admin: 05/12/25 23:40 Dose: 4 drops Documented By: DAVID Ceftriaxone Sodium (Rocephin) 2,000 mg in 50 mls @ 100 mls/hr IV Q24H KAROLINE Stop: 05/26/25 19:59 Last Infusion: 05/12/25 21:47 Dose: Infused Documented By: Admin: 05/12/25 20:45 Dose: 100 mls/hr Documented By: DAVID Latanoprost (Latanoprost 0.005% Op Soln 2.5 Ml Btl) 1 drops OPB HS KAROLINE Stop: 06/10/25 20:59 Last Admin: 05/12/25 20:46 Dose: 1 drops Documented By: Admin: 05/11/25 22:36 Dose: 1 drops Documented By: DAVID Levothyroxine Sodium (Levothyroxine Sodium 25 Mcg Tablet) 25 mcg PO DAILYBB [facility] Stop: 06/11/25 06:29 Last Admin: 05/13/25 06:03 Dose: 25 mcg Documented By: Admin: 05/12/25 06:07 Dose: 25 mcg Documented By: DAVID Losartan Potassium (Losartan Potassium 25 Mg Tab) 25 mg PO QAM [facility] Stop: 06/11/25 08:59 Last Admin: 05/13/25 08:21 Dose: 25 mg Documented By: Admin: 05/12/25 08:58 Dose: 25 mg Documented By: DELFINA Magnesium Chloride (Magnesium Chloride W/Calcium 64mg Delayed Rel Tab) 64 mg PO QAM K[facility]OLINE Stop: 06/11/25 08:59 Last Admin: 05/13/25 08:21 Dose: 64 mg Documented By: Admin: 05/12/25 08:58 Dose: 64 mg Documented By: DELFINA Prednisolone/Moxifloxacin/Bromfenac: Non- Formulary Patient's Own Med 1 each OPL BID KAROLINE Stop: 06/11/25 08:59 Last Admin: 05/13/25 08:18 Dose: 1 ea Documented By: Admin: 05/12/25 20:46 Dose: 1 ea Documented By: Admin: 05/12/25 08:57 Dose: 1 ea Documented By: DELFINA Nystatin (Nystatin Susp 500,000 U/5 Ml Udc) 5 ml PO QID K[facility]INE Stop: 05/21/25 20:59 Last Admin: 05/13/25 12:26 Dose: 5 ml Documented By: Admin: 05/13/25 08:20 Dose: 5 ml Documented By: Admin: 05/12/25 20:45 Dose: 5 ml Documented By: Admin: 05/12/25 17:17 Dose: 5 ml Documented By: Admin: 05/12/25 14:44 Dose: 5 ml Documented By: Admin: 05/12/25 08:56 Dose: 5 ml Documented By: Admin: 05/11/25 22:35 Dose: 5 ml Documented By: DAVID Pravastatin Sodium (Pravastatin Sod 40 Mg Tab) 40 mg PO HS [facility] Stop: 06/10/25 20:59 Last Admin: 05/12/25 20:45 Dose: 40 mg Documented By: Admin: 05/11/25 22:36 Dose: 40 mg Documented By: DAVID Propafenone HCl (Propafenone Hcl 150 Mg Tablet) 150 mg PO TID [facility] Stop: 06/10/25 20:59 Last Admin: 05/13/25 13:08 Dose: 150 mg Documented By: Admin: 05/13/25 08:20 Dose: 150 mg Documented By: Admin: 05/12/25 20:45 Dose: 150 mg Documented By: Admin: 05/12/25 14:44 Dose: 150 mg Documented By: Admin: 05/12/25 08:55 Dose: 150 mg Documented By: Admin: 05/11/25 22:35 Dose: 150 mg Documented By: DAVID Vitamin D (Cholecalciferol 25 Mcg (1000 Units) Tab) 50 mcg PO DAILY K[facility]INE Stop: 06/11/25 08:59 Last Admin: 05/13/25 08:21 Dose: 50 mcg Documented By: Admin: 05/12/25 08:58 Dose: 50 mcg Documented By: DELFINA (7) CAD (coronary artery disease) Coronary Disease-Associated Artery/Lesion type: [place] artery [place] vs. transplanted heart: [place] heart Associated angina: without angina Qualified Code(s): I25.10 - Atherosclerotic heart disease of [place] coronary artery without angina pectoris (8) Hyperlipidemia Hyperlipidemia type: unspecified Qualified Code(s): E78.5 - Hyperlipidemia, unspecified (9) Hypertension Hypertension type: unspecified Qualified Code(s): I10 - Essential (primary) hypertension (10) Hypothyroidism Hypothyroidism type: acquired Qualified Code(s): E03.9 - Hypothyroidism, unspecified
[2025-05-14 07:20] LABS: Hematocrit (blood only) 30.5 % (37.0-47.0); Hemoglobin 10.7 g/dl (12.0-16.0); Mean Corpuscular Hemoglobin 29.8 pg (25.0-34.0); Mean Corpuscular Volume 85.0 fL (80.0-100.0); Platelet Count 155 K/uL (130-400); RDW Standard Deviation 40.8 fL (36.4-46.3); Red Blood Count 3.59 M/uL (4.20-5.40); White Blood Count 6.90 K/ul (4.8-10.8)
[2025-05-14 07:22] VITALS: BP 164/73; PULSE 64; RESP 18; TEMP 97.5; O2SAT 98
[2025-05-14 07:45] LABS: Anion Gap 7.0 (3-11); Blood Urea Nitrogen 15.0 mg/dl (6-23); Calcium 9.0 mg/dl (8.6-10.3); Carbon Dioxide 25.0 mmol/L (21-32); Chloride 105.0 mmol/L (98-107); Creatinine Clr Calc Pharmacy 40.5 ml/min; Glucose 89.0 mg/dl (70-99(Fasting)); Potassium 4.1 mmol/L (3.5-5.1); Sodium 137.0 mmol/L (136-145)
--- NOTE | 2025-05-14 14:12 | Discharge Summary ---
Discharge Summary Date of Service May 14, 2025 Principal Dx & Hospital Course #1 = Principal Diagnosis (1) Metabolic encephalopathy: Patient is a 84 year old F with a past medical history of PAF s/p Watchman, TIA (2018), Tachycardia s/p cardioversion in 1999, CAD, HTN, CKD Stg III, dementia, hypothyroidism, prediabetes, recurrent UTI w/ history Klebsiella, presenting with nausea, vomiting, confusion. Symptoms began this morning with episode of vomiting followed by confusion, per family report patient was awake with no LOC, but not responding to questions and seemed not at baseline. Patient has dementia. Arrived here via EMS. Possible foul smelling urine at home. Denies urinary symptoms. #Metabolic encephalopathy 2/2 sepsis UTI (Leukocytosis, Fever, Hypoxia) #Gram Negative Bacteremia #E. coli Bacteremia #CKD Stage III * continueceftriaxone, will need 5-7 day course of abx, f/u sensitivities * want one more day of IV therapies given elderly * PT/OT eval, likely homegoing * Case Management to consider HH at discharge. * hold donepezil, gabapentin f #Hypoxia * O2 sats to low 90's when sleeping- recovered >94% with supplemental 2LPM O2 * oxygen as needed to maintain sats >90% * CT showing 3 mm nodular density in the right lung base. Follow-up thoracic CT may be advised for reassessment in 3 months * Incentive spirometer Q4H while awake encouraged #Paroxysmal A Fib s/p Watchman #Hypomag * Continue home propafenone TID dosing * EKG showing NSR with LBBB, QTc 522. Hold QT prolongation med #Type 2 [place] #CAD #Hyperlipidemia * f/u with cardiology outpatient #Hypertension * Continue home losartan and amlodipine #Hypothyroidism * Continue home levothyroxine I spent a total of 45 minutes in direct patient care, including [id number] time with the patient and/or family, reviewing medical records, ordering and reviewing diagnostic tests, and coordinating care with other healthcare providers. This time includes: history taking, physical examination, medical decision making, counseling, ECG interpretation, imaging interpretation, lab interpretation, orders, and education, excluding time spent in the performance of separately billed services. (2) Sepsis secondary to UTI: (3) Hypoxia: (4) Paroxysmal atrial fibrillation: (5) Hypomagnesemia: (6) Elevated troponin: (7) CAD (coronary artery disease): (8) Hyperlipidemia: (9) Hypertension: (10) Hypothyroidism: Notes For Next Care Provider Patient is a 84 year old F with a past medical history of PAF s/p Watchman, TIA (2018), Tachycardia s/p cardioversion in 1999, CAD, HTN, CKD Stg III, dementia, hypothyroidism, prediabetes, recurrent UTI w/ history Klebsiella, presenting with nausea, vomiting, confusion. Admitted to medicine for sepsis. On medicine, patient grew E. coli in blood cultures. PT/OT evaluated patient, stable for homegoing. Given several days of IV abx given risk factors. GI consulted given concern for ischemic colitis, patient opted against further investigation at this time. On 05/14/2025 patient medically stable for discharge home. To do: [ ] f/u with GI Medication Changes From Visit -see below Admission HPI Per Admitting Provider Patient is a 84 year old F with a past medical history of PAF s/p Watchman, TIA (2018), Tachycardia s/p cardioversion in 1999, CAD, HTN, CKD Stg III, dementia, hypothyroidism, prediabetes, recurrent UTI w/ history Klebsiella, presenting with nausea, vomiting, confusion. Symptoms began this morning with episode vomiting followed by confusion, per family report patient was awake with no LOC, but not responding to questions and seemed not at baseline. Arrived here via EMS. Possible foul smelling urine at home. Denies urinary symptoms. Denies fever, chills, weight loss, weakness, headache, cognitive changes, vision/hearing changes, chest pain, SOB, swelling, difficulty breathing, urinary concerns, diarrhea, joint swelling/pain, ambulation difficulty, skin rashes, lesions, bleeding, bruising. In the emergency department, patient was hemodynamically stable with + signs sepsis- elevated temp 37.9, leukocytosis WBC 10.93, mild hypoxia requiring supplemental oxygen. Procal 1.7. Blood cultures pending. Chest Xray negative. Urine + leukocyte esterase, nitrites, blood. History of Klebsiella. Ceftriaxone given. Clinically dry, history of CKD, Creatinine stable at 1.2 and at baseline. NSS 500 ml bolus given in the ED. EKG showing NSR with LBBB, QTc 522. Initial Trop 24.2, increased to 111.6 most likely in the setting of sepsis with demand ischemia. History CAD on aspirin and statin therapy. History of PAF s/p Watchman. On propafenone and no anticoagulation. Head CT completed, results pending. Low suspicion for intracranial bleed. 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 Abdominal exam benign with no pain. Also with 3 mm nodular density in the right lung base. Follow-up thoracic CT may be advised for reassessment in 3 months As per external chart review, patient was seen by Nephrology on per the request of PCP for CKD. Per Nephro, CKD age-related decline with HTN nephrosclerosis, small degree of proteinuria. Insufficient po fluids at home, advised to maintain 2000 mg sodium diet. Baseline Cr 1.1-1.4. History of diuretic use with worsening CKD. History obtained primarily from the patient and via hospitalization record. The patient's family was at the bedside and assisted with history of present illness and current medications. External chart review obtained from [facility]. Discharge Exam Gen: A&O 3 NAD HEENT: NCAT, EOMI, not icteric. External ears normal. No rhinorrhea. Moist mucous membranes. Neck: Supple, full range of motion, no observable masses, No meningeal sign. Lungs: No Respiratory distress. CV: RRR, no edema. Abdomen: Soft, nondistended, No rebound tenderness. MSK: No joint swelling, no redness. Skin: No rashes, petechiae, lesions. Normal color per patient. Neuro: Normal Gait, Grossly intact. Psych: Appropriate for situation. Updated Medication List Medication Instructions Recorded Confirmed Type amlodipine 5 mg tablet 2.5 mg PO QAM #0 tabs 05/27/18 05/11/25 History latanoprost 0.005 % eye drops 1 drp OPB HS ##0 05/27/18 05/11/25 History (Xalatan) levothyroxine 25 mcg tablet 25 mcg PO QAM #0 tabs 05/27/18 05/11/25 History magnesium chloride 64 mg 64 mg PO QAM #0 tabs 05/27/18 05/11/25 History (magnesium chloride) tablet,delayed release (Mag 64) multivitamin 1 tab PO QAM #0 tabs 05/27/18 05/11/25 History pravastatin 40 mg tablet 40 mg PO HS ##0 05/27/18 05/11/25 History propafenone 150 mg tablet 150 mg PO TID ##0 05/27/18 05/11/25 History aspirin 81 mg tablet,delayed 81 mg PO QPM 01/18/21 05/11/25 History release donepezil 5 mg tablet 5 mg PO QAM 12/21/24 05/11/25 History gabapentin 300 mg capsule 300 mg PO BID 12/21/24 05/11/25 History losartan 25 mg tablet 25 mg PO QAM 12/21/24 05/11/25 History ondansetron HCl 4 mg tablet 4 mg PO Q8H PRN Nausea 12/21/24 05/11/25 History cholecalciferol (vitamin D3) 50 50 mcg PO DAILY 04/15/25 05/11/25 History mcg (2,000 unit) capsule (Vitamin D3) meclizine 25 mg tablet 25 mg PO DAILY PRN Vertigo 04/15/25 05/08/25 History amoxicillin 500 mg-potassium 1 tab PO BID 5 days #10 tabs 05/14/25 Rx clavulanate 125 mg tablet (Augmentin) Hospital Stay Data Consultations 05/11/25 17:18 ED Decision to Admit Stat 05/12/25 07:56 Consult Gastroenterology Routine Diagnostic Imagining Performed 05/11/25 14:48 CT abd pelvis IV con only Stat CT head/brain wo con Stat Pending Results Patient Have Any Pending Studies at Discharge: No Discharge Instructions Given to Patient (Per Discharging Provider) 1. Please follow up with PCP, infectious disease for frequent UTIs. 2. Finish abx course as prescribed. 3. Take medications as prescribed. 4. Stay hydrated! Total Time Total Time Spent Total Time Spent (In Minutes): I spent a total of 35 minutes in direct patient care, including [id number] time with the patient and/or family, reviewing medical records, ordering and reviewing diagnostic tests, and coordinating care with other healthcare providers. This time includes: history taking, physical examination, medical decision making, counseling, ECG interpretation, imaging interpretation, lab interpretation, orders, and education, excluding time spent in the performance of separately billed services.
== END 2025-05-14 12:04 | disposition home or self-care (01) | DRG 871 ==
LOC: ED 14:02 → 2N 19:09 → INTOOBSV 19:09 → SUATTDRO 19:09 → 2N 21:10